=== PATIENT | female | born 1990 | race Caucasian/White ===

== ENCOUNTER → 2017-05-25 | Outpatient (REF) | payer BC ==
[2017-05-25 13:33] LABS: INR 0.97
[2017-05-25 13:34] LABS: FIBRINOGEN 310 MG/DL (221-452); PARTIAL THROMBOPLASTIN TIME 30.6 SECONDS (26.8-37.9)
[2017-05-25 13:54] LABS: HCG, SERUM QUANTITATIVE < 1.0 MIU/ML; URIC ACID 3.3 MG/DL (2.6-6.0)
[2017-05-25 14:16] LABS: FOLLICLE STIMULATING HORMONE 6.1 mIU/mL; LUTEINIZING HORMONE 8.4 mIU/mL
[2017-05-25 14:16] LABS: TESTOSTERONE 23 NG/DL (14-76)
[2017-05-28 00:07] LABS: 17 HYDROXY PROGESTERONE 44 ng/dL (.)
== END ==
LOC: M LAB REF 13:03
DX: N92.6 Irregular menstruation, unspecified (principal)
CPT/HCPCS: 83001

== ENCOUNTER → 2017-11-11 | Outpatient (REF) | payer BC ==
[2017-11-11 13:44] LABS: CONTROL LINE HCG INT CTR LINE PRESENT; HCG, SERUM QUALITATIVE NEGATIVE (NEGATIVE)
[2017-11-13 00:06] LABS: Lyme Disease IgG/IgM Antibodie <0.91 ISR (0.00-0.90); Lyme Disease IgM Ab Quantitati <0.80 index (0.00-0.79)
== END ==
LOC: M LAB REF 12:32
DX: R53.83 Other fatigue (principal); N91.2 Amenorrhea, unspecified
CPT/HCPCS: 84703

== ENCOUNTER → 2017-12-09 | Outpatient (REF) | payer BC ==
[2017-12-09 14:49] LABS: CONTROL LINE HCG INT CTR LINE PRESENT; HCG, SERUM QUALITATIVE NEGATIVE (NEGATIVE)
[2017-12-09 16:32] LABS: PROLACTIN 7.2 NG/ML
[2017-12-09 16:32] LABS: TESTOSTERONE 17 NG/DL (14-76)
[2017-12-09 16:44] LABS: FOLLICLE STIMULATING HORMONE 5.4 mIU/mL; LUTEINIZING HORMONE 4.2 mIU/mL
[2017-12-15 00:12] LABS: INSULIN LEVEL 10.8 uIU/mL (2.6-24.9)
[2017-12-15 00:12] LABS: 17 HYDROXY PROGESTERONE 16 ng/dL (.); DEHYDROEPIANDROSTERONE SULFATE 133.2 ug/dL (84.8-378.0)
== END ==
LOC: M LAB REF 14:16
DX: N91.2 Amenorrhea, unspecified (principal)
CPT/HCPCS: 83001

== ENCOUNTER → 2018-05-09 | Outpatient (REF) | payer BC ==
[2018-05-09 15:00] LABS: FOLLICLE STIMULATING HORMONE 2.8 mIU/mL; LUTEINIZING HORMONE 2.7 mIU/mL; PROLACTIN 8.9 NG/ML
[2018-05-12 00:07] LABS: TESTOSTERONE FREE (DIRECT) 1.8 pg/mL (0.0-4.2)
== END ==
LOC: M LAB REF 13:40
PROVIDERS: ATTEND Nurse Practitioner Adult Health
DX: N91.1 Secondary amenorrhea (principal)

== ENCOUNTER → 2018-10-13 | Outpatient (REF) | payer BC ==
[~2018-10-13] MED LIST: ACET-897 PO; AIMO70IN2; AIMO70IN2 SQ; CARI1TAB7; DULO1CAP5; DULO30CA9 PO; IBUP-1022; IBUP-1425 PO; LOW-1TAB2; LOW-1TAB2 PO; SOMA350T PO; TOPI100T9; TOPI50TA9 PO
== END ==
LOC: M LAB LCGH 11:52
PROVIDERS: ATTEND Obstetrics & Gynecology
DX: N91.2 Amenorrhea, unspecified (principal)

== ENCOUNTER → 2018-12-07 | Outpatient (REF) | payer BC | LOC: M LAB REF 16:19 | PROVIDERS: ATTEND Nurse Practitioner Adult Health | DX: R10.32 Left lower quadrant pain (principal) ==

== ENCOUNTER 2019-03-14 18:23 | Emergency (ER) | payer BC ==
[~2019-03-14] VITALS: Ht 152.4 cm; Wt 62.1 kg
[2019-03-14] MEDS ORDERED: AIMO70IN2 (18:32)
[2019-03-14] MEDS ORDERED: LOW-1TAB2 (18:32)
[2019-03-14] MEDS ORDERED: CARI1TAB7 (18:32)
[2019-03-14] MEDS ORDERED: TOPI100T9 (18:32)
[2019-03-14] MEDS ORDERED: DULO1CAP5 (18:32)
[2019-03-14] MEDS ORDERED: IBUP-1022 (18:32)
[2019-03-14] MEDS ORDERED: NS 1,000 ML IV SCH (18:48)
[2019-03-14 18:59] LABS: BASO % 0.3 % (0.0-1.0); EOS # 0.1 10^3/uL (0.0-0.5); EOS % 1.1 % (0.0-3.0); HEMATOCRIT 44.5 % (36.0-47.0); HEMOGLOBIN 14.2 g/dl (12.0-15.5); LYMPH # 2.3 10^3/uL (1.5-5.0); LYMPH % 24.8 % (24.0-44.0); MEAN CORPUSCULAR HEMOGLOBIN 30.9 pg (27.0-33.0); MEAN CORPUSCULAR HGB CONC 31.9 g/dl (32.0-36.5); MEAN CORPUSCULAR VOLUME 96.9 fl (80.0-96.0); MONO # 0.5 10^3/uL (0.0-0.8); MONO % 5.3 % (0.0-5.0); NEUTROPHILS # 6.3 10^3/uL (1.5-8.5); NEUTROPHILS % 68.3 % (36.0-66.0); PLATELET COUNT, AUTOMATED 254 10^3/uL (150-450); RED BLOOD COUNT 4.59 10^6/uL (4.00-5.40); WHITE BLOOD COUNT 9.2 10^3/uL (4.0-10.0)
[2019-03-14] MEDS ORDERED: MORPHINE 4 MG/ML 1ML VIAL/SYRINGE (J2270) IV ONE (19:00)
[2019-03-14] MEDS ORDERED: ONDANSETRON 4MG/2ML VIAL (J2405) IV ONE (19:00)
[2019-03-14 19:29] LABS: ALT/SGPT 12 U/L (12-78); BILIRUBIN,DIRECT < 0.1 MG/DL (0.0-0.2); BILIRUBIN,TOTAL 0.3 MG/DL (0.2-1.0); LIPASE 240 U/L (73-393); TOTAL PROTEIN 7.3 GM/DL (6.4-8.2)
[2019-03-14] MEDS ORDERED: POTASSIUM CHLORIDE 10 MEQ SR TABLET PO ONE (19:45)
[2019-03-14] MEDS ORDERED: ISOVUE-370 76% 100ML VIAL (Q9967) As Ordered ONE (19:49)
[2019-03-14] MEDS: GASTROGRAFIN SOLUTION 30ML PO SCH ×2 (20:11→20:26)
--- NOTE | 2019-03-14 22:31 | REPVR ---
PROCEDURE INFORMATION: Exam: CT Abdomen And Pelvis With Contrast Exam date and time: 03/14/2019 9:56 PM Age: 28 years old Clinical indication: Abdominal pain; Additional info: Rlq pain TECHNIQUE: Imaging protocol: Computed tomography of the abdomen and pelvis with intravenous contrast. Radiation optimization: All CT scans at this facility use at least one of these dose optimization techniques: automated exposure control; mA and/or kV adjustment per patient size (includes targeted exams where dose is matched to clinical indication); or iterative reconstruction. Contrast material: ISOVUE 370; Contrast volume: 100 ml; Contrast route: IV; COMPARISON: No relevant prior studies available. FINDINGS: Liver: 6 mm cyst in the right hepatic lobe. Subcentimeter lesion in the left hepatic lobe too small to be characterized. Gallbladder and bile ducts: Normal. No calcified stones. No ductal dilation. Pancreas: Normal. No ductal dilation. Spleen: Small splenule. Adrenals: Normal. No mass. Kidneys and ureters: Normal. No hydronephrosis. Stomach and bowel: Unremarkable. No obstruction. No mucosal thickening. Appendix: Appendix is unremarkable. Intraperitoneal space: Unremarkable. No free air. No significant fluid collection. Vasculature: Unremarkable. No abdominal aortic aneurysm. Lymph nodes: Unremarkable. No enlarged lymph nodes. Bladder: Unremarkable as visualized. Reproductive: Unremarkable as visualized. Bones/joints: Unremarkable. No acute fracture. Soft tissues: Unremarkable. IMPRESSION: No acute abdominal or pelvic abnormality. Electronically signed by: Franko Ferrell On 03/14/2019 22:30:22 PM
[2019-03-14] MEDS ORDERED: KETOROLAC 30 MG/ML VIAL (J1885) IV ONE (22:45)
--- NOTE | 2019-03-15 00:14 | REPVR ---
PROCEDURE INFORMATION: Exam: US Pelvis Complete, Transabdominal Exam date and time: 03/14/2019 11:26 PM Age: 28 years old Clinical indication: Pelvic pain; Additional info: Rlq pain R/O ovarian torsion TECHNIQUE: Imaging protocol: Real-time transabdominal pelvic ultrasound with image documentation. Complete exam. COMPARISON: CT ABD/PEL W/IV ORAL CONTRAS 03/14/2019 9:45 PM FINDINGS: Uterus/cervix: Small endometrial cyst measuring 3 mm. Endometrium is otherwise unremarkable. Uterus is unremarkable. No uterine masses. Right adnexa: 1.9 cm right ovarian simple cyst. No mass. Normal blood flow. Left adnexa: Small physiologic follicles. No mass. Normal blood flow without signs of torsion. Free fluid: Trace pelvic free fluid. Bladder: Normal. IMPRESSION: No evidence of ovarian torsion or other acute findings. Electronically signed by: Florian Delgado On 03/15/2019 00:14:10 AM
[2019-03-15] MEDS ORDERED: LOW-1TAB2 PO (00:39)
[2019-03-15] MEDS ORDERED: TOPI50TA9 PO (00:39)
[2019-03-15] MEDS ORDERED: AIMO70IN2 SQ (00:39)
[2019-03-15] MEDS ORDERED: SOMA350T PO (00:39)
[2019-03-15] MEDS ORDERED: DULO30CA9 PO (00:39)
[2019-03-15] MEDS ORDERED: ACET-897 PO (00:39)
[2019-03-15] MEDS ORDERED: IBUP-1425 PO (00:39)
[2019-03-15 00:45] VITALS: BP 98/56
== END 2019-03-15 00:48 | disposition home or self-care (01) ==
LOC: M ED 18:23
DX: R10.31 Right lower quadrant pain (principal); N92.6 Irregular menstruation, unspecified; K76.89 Other specified diseases of liver; Z79.3 Long term (current) use of hormonal contraceptives; Z79.899 Other long term (current) drug therapy; Z88.2 Allergy status to sulfonamides; Z88.5 Allergy status to narcotic agent
CPT/HCPCS: 36415; 74177; 76830; 76856; 80047; 80076; 81001; 83690; 84702; 85025; 87086; 93976; 96361; 96374; 96375; 99284; J1885; J2270; J2405; Q9963; Q9967

== ENCOUNTER → 2019-03-21 | Outpatient (REF) | payer BC | LOC: M LAB LCGH 10:33 | PROVIDERS: ATTEND Surgery | DX: K82.4 Cholesterolosis of gallbladder (principal) ==

== ENCOUNTER 2019-09-11 08:14 | Emergency (ER) | payer BC, OTHER ==
[~2019-09-11] VITALS: Ht 152.4 cm; Wt 63.6 kg
[2019-09-11] MEDS ORDERED: ISOVUE-370 76% 100ML VIAL As Ordered ONE (09:59)
[2019-09-11] MEDS ORDERED: KETO10TAB PO (10:49)
[2019-09-11 11:12] VITALS: BP 109/62
--- NOTE | 2019-09-11 12:01 | REP ---
REASON: Pleuritic chest pain. CONTRAST: 70 mL Isovue 370. There is excellent visualization of the pulmonary arterial vasculature. There are no focal filling defects present that would be considered consistent with acute pulmonary emboli. There are no pleural or pericardial effusions. There is no mediastinal or hilar adenopathy. The imaged upper abdomen and imaged osseous structures are within normal limits. Evaluation of the lung watt show no abnormal nodules, masses, or opacities. IMPRESSION: CT findings are within normal limits. Electronically Signed by Jay Chairez DO 09/11/2019 02:27 P
== END 2019-09-11 11:13 | disposition home or self-care (01) ==
LOC: M ED 08:14
DX: R07.89 Other chest pain (principal); Z79.3 Long term (current) use of hormonal contraceptives; Z79.899 Other long term (current) drug therapy; Z88.2 Allergy status to sulfonamides; Z88.5 Allergy status to narcotic agent
CPT/HCPCS: 71275; 80047; 84702; 99284; Q9967

== ENCOUNTER → 2019-09-12 | Outpatient (CLI) | payer BC, OTHER ==
[~2019-09-12] MED LIST changes: +KETO10TAB PO
== END ==
LOC: M LABSMTC 11:26
PROVIDERS: ATTEND Pediatrics
DX: Z11.59 Encounter for screening for other viral diseases (principal)
CPT/HCPCS: C9803; U0002

== ENCOUNTER → 2019-10-04 | Outpatient (CLI) | payer BC, OTHER ==
[2019-11-26 15:10] LABS: HEMATOCRIT 39.3 % (36.0-47.0); MEAN CORPUSCULAR HEMOGLOBIN 31.6 pg (27.0-33.0); MEAN CORPUSCULAR HGB CONC 33.1 g/dl (32.0-36.5); MEAN CORPUSCULAR VOLUME 95.6 fl (80.0-96.0); PLATELET COUNT, AUTOMATED 279 10^3/uL (150-450); RED BLOOD COUNT 4.11 10^6/uL (4.00-5.40); WHITE BLOOD COUNT 7.5 10^3/uL (4.0-10.0)
[2019-12-02 10:17] LABS: ALBUMIN 3.6 GM/DL (3.2-5.2); ALT/SGPT 44 U/L (12-78); BILIRUBIN,TOTAL 0.3 MG/DL (0.2-1.0); BLOOD UREA NITROGEN 11 MG/DL (7-18); CALCIUM LEVEL 8.8 MG/DL (8.5-10.1); CARBON DIOXIDE LEVEL 24 MEQ/L (21-32); CHLORIDE LEVEL 111 MEQ/L (98-107); CREATININE FOR GFR 0.85 MG/DL (0.55-1.30); GLOMERULAR FILTRATION RATE > 60.0 (>60); GLUCOSE, FASTING 93 MG/DL (70-100); HCG, SERUM QUANTITATIVE < 1.0 MIU/ML; POTASSIUM SERUM 3.7 MEQ/L (3.5-5.1); SODIUM LEVEL 141 MEQ/L (136-145)
== END ==
LOC: M LAB 16:05
PROVIDERS: ATTEND Obstetrics & Gynecology Reproductive Endocrinology
DX: Z53.9 Procedure and treatment not carried out, unspecified reason (principal)

== ENCOUNTER → 2019-10-07 | Outpatient (CLI) | payer BC, OTHER | LOC: M LABSMTC 09:30 | PROVIDERS: ATTEND Obstetrics & Gynecology Reproductive Endocrinology | DX: Z11.59 Encounter for screening for other viral diseases (principal); Z20.828 Contact with and (suspected) exposure to other viral communicable diseases | CPT/HCPCS: C9803; U0003 ==

== ENCOUNTER 2019-10-30 18:33 | Emergency (ER) | payer BC, OTHER ==
[~2019-10-30] VITALS: Ht 152.4 cm; Wt 62.1 kg
[2019-10-30 18:34] VITALS: BP 105/68
[2019-10-30] MEDS ORDERED: diphenhydrAMINE 50MG/ML VIAL (J1200) IV ONE (20:30)
[2019-10-30] MEDS ORDERED: NS 1,000 ML IV ONE (20:30)
[2019-10-30] MEDS ORDERED: METOCLOPRAMIDE INJ 10MG/2ML VIAL (J2765 PER 1) IV ONE (20:30)
[2019-10-30] MEDS ORDERED: KETOROLAC 30 MG/ML 1ML VIAL IV ONE (20:30)
== END 2019-10-30 23:11 | disposition home or self-care (01) ==
LOC: M ED 18:33
DX: G43.909 Migraine, unspecified, not intractable, without status migrainosus (principal); Z79.3 Long term (current) use of hormonal contraceptives; Z79.899 Other long term (current) drug therapy; Z88.2 Allergy status to sulfonamides; Z88.5 Allergy status to narcotic agent
CPT/HCPCS: 96361; 96374; 96375; 99283; J1200; J1885; J2765

== ENCOUNTER 2020-04-05 11:20 | Emergency (ER) | payer BC, OTHER ==
[~2020-04-05] VITALS: Ht 152.4 cm; Wt 71.4 kg
[2020-04-05] MEDS ORDERED: PHEN15CA (11:28)
--- OUTSIDE RECORDS SUMMARY | 2020-04-05 11:29 | CCD | Continuity of Care Document ---
Author Author Ketty ARREOLA [facility] Organization Unknown Address [address] [facility] [address] [place] [address] Phone [phone] Care Team Providers Care Consumer Experience Consultant Name Role Phone Nicolas Bobby MD AUTM [phone] Rebecca Hanks AUTM [phone] Problems Active Problems Provider Date Carcinoma in situ of uterine cervix Phyl JAEL Motta Onse t: 02/02/2017 Social History Type Date Description Comments Sex Unknown ETOH Use Drinks Alcoholic Beverages Occas ionally Tobacco Use Start: Unknown Patient has never smoked Allergies, Adverse Reactions, Alerts Active Allergies Reaction Severity Comments Date Sulfa Urticaria 12/28/2013 Tramadol itchy 12/28/2013 Enlon-Plus 12/18/2015 Medications Active Medications SIG Qnty Indications Ordering Provide r Date Phentermine HCL 15mg Capsules 1 by mouth every morning 1/2 hour before breakfast 30caps E66.3 Isiah Bates MD 03/25/2020 Aimovig 140mg/ml Solution Auto-Inj ect inject 1 milliliters monthly 1ml Isiah Bates MD 03/02/2019 Soma 350mg Tablets three times a day as needed 30tabs MINA Long 01/23/2019 Topamax 100mg Tablets take one tablet by mouth twice a day am and at bedtime 180tabs Isiah de leon MD 10/03/2018 Medications Administered in Office Medication SIG Qnty Indications Ordering Provider Date Immunization Adminstration,1 Vaccine/Tox oid Injection Isiah Bates MD 2019 Immunization Adminstration,1 Vaccine/Tox oid Injection MINA Long 019 Immunization Adminstration,1 Vaccine/Tox oid Injection Rebecca Hanks, ANP 018 Immunizations CPT Code Status Date Vaccine Lot # [id number] Given 12/18/2019 Influenza Vaccin e Quadrivalent Preser/Antibiotic Free Im Use [id number] Given 12/07/2018 Influenza Vaccin e Quadrivalent Preser/Antibiotic Free Im Use [id number] Given 12/27/2017 Influenza Virus Vaccine, Quadrivalent ([id number]), Derived From 9 Given 12/02/2016 Influenza Vaccin e Quadrivalent Preser/Antibiotic Free Im Use [id number] Given 12/18/2015 Fluvirin Virus Vaccine [id number] 01 Q2037 Given 12/26/2014 Fluvirin Virus Vaccine 12822 01 Q2037 Given 12/28/2013 Fluvirin Virus Vaccine [id number] 21 Vital Signs Date Vital Result Comment 03/25/2020 1:03pm Height 60 inches 5'0" Weight 152.00 lb BMI (Body Mass Index) 29.7 kg/m2 08/31/2019 10:25am BP Systolic 114 mmHg BP Diastolic 70 mmHg Heart Rate 70 /min Height 60 inches 5'0" Weight 140.00 lb O2 % BldC Oximetry 99 % RM Air BMI (Body Mass Index) 27.3 kg/m2 Results Test Acquired Date Facility Test Result H/L Range Note Coronavirus 2019 Nasopharygeal 10/07/2019 [facility] [address] [place], [place] [id number] [phone] Coronavirus 2019 Nasopharygeal SARS-CoV-2, RADHA <SEE N OTE> 1 Complete Blood Count 10/04/2019 [facility] enter [address] [place], [place] [id number] [phone] White Blood Count 7.5 10 Normal 4.0-10.0 Red Blood Count 4.11 10 Normal 4.00-5.40 Hemoglobin 13.0 g/dL Normal 12.0-15.5 Hematocrit 39.3 % Normal 36.0-47.0 Mean Corpuscular Volume 95.6 fl Normal 80.0-96.0 Mean Corpuscular Hemoglobin 31.6 pg Normal 27.0-33.0 Mean Corpuscular HGB Conc 33.1 g/dL Normal 32.0-36.5 Red Cell Distribution Width 11.8 % Normal 11.5-14.5 Platelet Count, Automated 279 10 Normal 150-450 Nucleated Red Blood Cell % 0.0 % Normal 0-0 Comprehensive Metabolic Profil 10/04/[address] [id number] [phone] Glucose, Fasting 93 mg/dL Normal 70-100 Blood Urea Nitrogen 11 mg/dL Normal 7-18 Creatinine For GFR 0.85 mg/dL Normal 0.55-1.30 Glomerular Filtration Rate > 60.0 Normal >60 2 Sodium Level 141 mEq/L Normal 136-145 Potassium Serum 3.7 mEq/L Normal 3.5-5.1 Chloride Level 111 mEq/L High 98-107 Carbon Dioxide Level 24 mEq/L Normal 21-32 Anion Gap 6 mEq/L Low 8-16 Calcium Level 8.8 mg/dL Normal 8.5-10.1 Ast/Sgot 25 U/L Normal 7-37 Alt/SGPT 44 U/L Normal 12-78 Alkaline Phosphatase 92 U/L Normal 45-117 Bilirubin,Total 0.3 mg/dL Normal 0.2-1.0 Total Protein 7.0 GM/DL Normal 6.4-8.2 Albumin 3.6 GM/DL Normal 3.2-5.2 Albumin/Globulin Ratio 1.1 Low 1.2-2.2 Laboratory test finding 10/04/[address] [id number] [phone] HCG, Serum Quantitative < 1.0 MIU/ML Normal 3 1 SARS-CoV-2, RADHA Not Detecte d Test was developed and its performance characteristics determined by [facility]. This test has not been FDA cleared or approved. This test has been authorized by FDA under an Emergency Use Authorization (EUA). This test is only authorized for the duration of time the declaration that circumstances exist justifying the authorization of the emergency use of in vitro diagnostic tests for detection of SARS-CoV-2 virus and/or diagnosis of COVID-19 infection under section 564(b)(1) of the Act, 21 U.S.C. 360bbb-3(b)(1), unless the authorization is terminated or revoked sooner. When diagnostic testing is negative, the possibility of a false negative result should be considered in the context of a patient's recent exposures and the presence of clinical signs and symptoms consistent with COVID-19. An individual without symptoms of COVID-19 and who is not shedding SARS-CoV-2 virus would expect to have a negative (not detected) result in this assay. [address] [address] Dir: Yajaira Moulton MD For inquiries, the physician may contact Branch: [phone] Lab: [phone] Testing performed at reference lab. Report copy to follow on a separate form. 11/15/19 REF LAB#:[id number] 2 Units are mL/min/1.73 m2 Chronic Kidney Disease Staging per NKF: Stage I & II GFR >=60 Normal to Mildly Decreased Stage III GFR 30-59 Moderately Decreased Stage IV GFR 15-29 Severely Decreased Stage V GFR <15 Very Little GFR Left ESRD GFR <15 on EXERCISE PHYSIOLOGY PROFESSOR 3 GESTATIONAL AGE APPROXIMATE HCG RANGE (MIU/ML) - 0.2-1 WEEK 5-50 1-2 WEEKS 50-500 2-3 WEEKS 100-5,000 3-4 WEEKS 500-10,000 4-5 WEEKS 1,000-50,000 5-6 WEEKS 10,000-100,000 6-8 WEEKS 15,000-200,000 2-3 MONTHS 10,000-100,00 0 NON FEMALES LESS THAN 3.0 Patient samples may contain human heterophilic antibodies that could react with immunoassays to give falsely elevated or depressed results. This assay has been designed to minimize interference from heterophilic antibodies. Elevated hCG levels have also been associated with trophoblastic disease and nontrophoblastic neoplasms. The possibility of having these diseases should be considered before a diagnosis of is made. This test is not intended for use as a surrogate marker for aiding in the diagnosis or monitoring the treatment of cancer patients. Siemens Laura methodology. Procedures Description No Information Available Medical Devices Description No Information Available Encounters Type Date Location Provider Dx Diagnosis Office Visit 03/25/2020 1:00p [facility] Mouna M arra, RETAIL STOCK CLERK G43.901 Migraine, unsp, not intractable, with st atus migrainosus F41.9 Anxiety disorder, unspecifie d N80.9 Endometriosis, unspecified Assessments Date Code Description Provider 03/25/2020 G43.901 Migraine, unspecified, not intra ctable, with status migraino Mouna Maxwell, RETAIL STOCK CLERK 03/25/2020 F41.9 Anxiety disorder, unspecified Ji pollo Maxwell, RETAIL STOCK CLERK 03/25/2020 N80.9 Endometriosis, unspecified Lamontlli miguel Maxwell, RETAIL STOCK CLERK 12/18/2019 Z23 Encounter for immunization Maite Bates MD 12/18/2019 Z23 Encounter for immunization Nurse Schedule Plan of Treatment Future Appointment(s):* 04/22/2020 1:00 pm - [facility] 03/25/2020 - Mouna JAEL Arreola* G43.901 Migraine, unspecified, not intractable, with status migraino* Comments:* Following with [facility]. She has been approved for Botox, she is currently still on Aimovig and Topamax. Check CBC, CMP when patient is able. * F41.9 Anxiety disorder, unspecified* Comments:* Feels stable without Duloxetine. * N80.9 Endometriosis, unspecified* Comments:* Following with [facility] [employer] and is no longer using OCPs. LMP 03/06/20 and patient reports that these are starting to regulate. * All * New Medication:* Phentermine HCL 15 mg - 1 by mouth every morning 1/2 hour before breakfast * Comments:* Flu and COVID vaccine x1 given. [facility] is done in [place]. Follow up in one year with repeat labs at that time.Encouraged balanced diet, 4-5 servings of fresh fruits and vegetables daily. Recommended at least 30 minutes of exercise daily and eight 8 oz. glasses of water daily.SBE monthly.RTC PRN for acute illness. COVID precautions are discussed and social distancing/mask use/ frequent hand washing and sanitizing are encouraged. Functional Status Description No Information Available Mental Status Description No Information Available Referrals Description No Information Available
--- OUTSIDE RECORDS SUMMARY | 2020-04-05 11:29 | CCD | Continuity of Care Document ---
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 Social History Type Date Description Comments Sex Unknown ETOH Use Occasionally consumes alcohol Tobacco Use Start: Unknown Patient has never smoked Tobacco Use Start: Unknown The Patient Has Never Vaped Smoking Status Reviewed: 03/26/20 The Patient Has Never Vaped Allergies, Adverse Reactions, Alerts Active Allergies Reaction Severity Comments Date Sulfa 03/17/2008 Tramadol Urticaria 01/01/2011 Inactive Allergies NKDA 03/17/2008 Medications Active Medications SIG Qnty Indications Ordering Provide r Date Ibuprofen 800mg Tablets take one tablet every 6-8hrs with food 50tabs M94.0 Bryan Leyva JR. 03/26/2020 Cyclobenzaprine HCL 10mg Tablets take one at bedtime 14tabs M94.0 Isiah Bates JR., M.D. Topamax bd Unknown Aimovig 140mg/ml Solution Auto-Inj ect Once a month Unknown Phentermine HCL 30mg Capsules 1 tab by mouth every day 1-2 hours after breakfast Unknow n Tylenol 325mg Tablets Last dose at 3am Unknown Immunizations Description No Information Available Vital Signs Date Vital Result Comment 03/26/2020 8:51am BP Systolic 107 mmHg BP Diastolic 76 mmHg Heart Rate 93 /min Respiratory Rate 16 /min O2 % BldC Oximetry 98 % Body Temperature 98.9 F Weight 150.00 lb Height 60 inches 5'0" BMI (Body Mass Index) 29.3 kg/m2 Pain Level 5 02/02/2020 12:19pm BP Systolic 120 mmHg BP Diastolic 80 mmHg Heart Rate 75 /min Respiratory Rate 12 /min O2 % BldC Oximetry 98 % Body Temperature 98.2 F Weight 137.00 lb Height 60 inches 5'0" BMI (Body Mass Index) 26.8 kg/m2 Pain Level 4 Results Description No Information Available Procedures Description No Information Available Medical Devices Description No Information Available Encounters Type Date Location Provider Dx Diagnosis Office Visit 03/26/2020 8:30a Main Office AYLEEN Mar M94 .0 Chondrocostal junction syndrome [Tietze] S16.1xxA Strain of muscle, fascia and tendon at neck level, init Z20.828 Contact w and exposure to ot h viral communicable diseases Office Visit 02/02/2020 12:15p Main Office AYLEEN Mar J06 .9 Acute upper respiratory infection, unspecified Z20.828 Contact w and exposure to ot h viral communicable diseases Assessments Date Code Description Provider 03/26/2020 M94.0 Chondrocostal junction syndrome [Tietze] AYLEEN Mar 03/26/2020 S16.1xxA Strain of muscle, fa scia and tendon at neck level, initial encounter AYLEEN Mar 03/26/2020 Z20.828 Contact with and (lacy spected) exposure to other viral communicable diseases AYLEEN Mar 02/02/2020 J06.9 Acute upper respiratory infectio n, unspecified AYLEEN Mar 02/02/2020 Z20.828 Contact with and (lacy spected) exposure to other viral communicable diseases AYLEEN Mar Plan of Treatment No Information Available Functional Status Description No Information Available Mental Status Description No Information Available Referrals Description No Information Available
--- OUTSIDE RECORDS SUMMARY | 2020-04-05 11:29 | CCD | Continuity of Care Document ---
Author Author Ketty MARTÍNEZ [facility] Organization Unknown Address [address] [place] [address] [place] [address] Phone [phone] Care Team Providers Care Special Warfare Boat Operator Name Role Phone Rebecca Hanks ANP AUTM [phone] Preet [employer] AUTM [phone] Problems Active Problems Provider Date Tietze's disease [...]
--- OUTSIDE RECORDS SUMMARY | 2020-04-05 11:30 | CCD | Continuity of Care Document ---
Author Author [facility] Organization [facility] Address [address] [place] [address] Phone Support Name Relationship Address Phone Amarjit Hanks PRS [facility] [place] [address] Po Pozo PRS [address] [place] [address] Gunner Woods PRS [address] [place] [address] Reynold Jeffrey PRS [address] [place] [address] Hardy Rosario PRS [address] [place] [address] Golden Arboleda PRS [address] [place] [address] Stone Agarwal PRS [address] [place] [address] Mikayla Garner PRS Unknown Unavailable Violet Farris PRS [address] [place] [address] Mariza Schrader II [place] [address] John Abad PRS [address] [place] [address] Allergies, Adverse Reactions, Alerts Allergen Type Severity Reaction Last Updated Verified Status Sulfa (Sulfonamide Antibiotics) Allergy Mild Hives December 18, 2019 9:05am Yes Active tramadol Allergy Mild itching December 18, 2019 9:05am Yes Active Medications Medication Status Dose Units Route Directions Qty Days Start Date End Date Instructions Duloxetine (Cymbalta) 20 mg capsule,delayed release(DR /EC) Discontinued 20 MG PO daily September 28, 2018 12:31pm October 12, 2018 8:49am Duloxetine Discontinued 30 MG PO daily October 12, 2018 8:48am August 31, 2019 12:49pm Duloxetine Active 60 MG PO daily August 31, 2019 12:47pm Topiramate (Topamax) 100 mg tablet Active 300 MG PO daily August 31, 2019 12:49 pm Drospirenone-Ethinyl Estradiol Discontinue d 1 TAB PO daily August 31, 2019 1:27 pm December 18, 2019 8:57am Ethynodiol Diac-Eth Estradiol Discontinued 1 TAB PO 2 Times Per Day December 18, 2019 8:57am January 18, 2020 3:28pm TAKE 1 TA B BY MOUTH DAILY ACTIVE TABS ONLY DIRECTED Ibuprofen Discontinued 6 00 MG PO Every 6 hours May 26, 2018 10:06am March 15, 2019 3:47pm Norgestrel-Ethinyl Estradiol (Low-Ogestr el (28)) 0.3-30 mg-mcg tablet Discontinued 1 TAB PO Once Per Day March 15, 2019 5:27pm August 31, 2019 12:47pm Ondansetron Hcl Discontinued 4 MG PO Every 6 hours March 17, 2019 1:08pm March 20, 2019 11:57am Acetaminophen (Tylenol) 325 mg Tablet Active 650 MG PO NEEDED March 20, 2019 1 1:57am Ibuprofen (Motrin Ib) 200 mg Capsule Discontinued 400 MG PO NEEDED March 20, 2019 11:57am August 31, 2019 12:47pm Oxycodone-Acetaminophen (Endocet) 5-325 mg tablet Discontinued 1 TAB PO Every 4 Hours March 21, 2019 10:15am August 31, 2019 12:47pm Topiramate (Topamax) 50 MG tablet Di scontinued 150 MG PO Once Per Day April 06, 2018 2:15pm October 12, 2018 8:49am Erenumab-Aooe (Aimovig Autoinjector) 70 MG/1 ML AUTO.I NJCT Discontinued 70 MG SQ Q30D 1 April 06, 2018 2:15pm March 15, 2019 3:47pm Topiramate (Topamax) 50 mg tablet Di scontinued 200 MG PO Once Per Day October 12, 2018 8: 44am March 15, 2019 3:47pm Metronidazole Discontinued 500 MG PO Q12H October 18, 2018 1:28pm March 15, 2019 3:46pm Ibuprofen Discontinued 6 00 MG PO Q6H October 18, 2018 1:29pm March 15, 2019 5:29pm Erenumab-Aooe (Aimovig Autoinjector) 70 MG/1 ML AUTO.I NJCT Active 140 MG SQ Q30D 1 J anuary 2019 3:46pm Problems Active Problems Medical Problem Onset Date Status Contraception management Active Vaginal bleeding Activ e Hypomenorrhea/oligomenorrhea Active Abnormal Pap smear of cervix Active Dyskinesia of gallbladder Active Inactive/Resolved Problems Medical Problem Onset Date Status Menstrual migraine Res olved Endometriosis determined by laparoscopy Resolved Procedures Procedure Date Performed Status US Abd single organ/quadrant March 15, 2019 7:01pm completed Relevant Diagnostic Tests and/or Laboratory Data Laboratory Results Test Date/Time Result Interpretation Reference Range Result Comment Performing Site White Blood Count March 17, 2019 12:23pm 6.9 10e3/uL 4.45-10.71 [facility], [address] [place] [address] 65514 White Blood Count March 15, 2019 6:44p m 7.2 10e3/uL 4.45-10.71 [facility], [address] [place] [address] 81484 Red Blood Count March 17, 2019 12:23pm 4.34 10e6/uL 4.20-5.40 [facility], [address] [place] [address] 34138 Red Blood Count March 15, 2019 6:44pm 4.26 10e6/uL 4.20-5.40 [facility], [address] [place] [address] 36174 Hemoglobin March 17, 2019 12:23pm 13.6 g/dL 10.7-15.4 [facility], [address] [place] [address] 14854 Hemoglobin March 15, 2019 6:44pm 13.4 g/dL 10.7-15.4 [facility], [address] [place] [address] 55672 Hematocrit March 17, 2019 12:23pm 41.6 % 37-47 [facility], [address] [place] [address] 13210 Hematocrit March 15, 2019 6:44pm 41.3 % 37-47 [facility], [address] [place] [address] 08223 Mean Corpuscular Volume March 12:23pm 95.9 fl 80-96 [facility], [address] [place] [address] 50298 Mean Corpuscular Volume March 6:44pm 96.9 fl 80-96 [facility], [address] [place] [address] 70988 Mean Corpuscular Hemoglobin March 17, 2019 12:23pm 31.3 pg 27-31 [facility], [address] [place] [address] 08810 Mean Corpuscular Hemoglobin March 15, 2019 6:44pm 31.5 pg 27-31 [facility], [address] [place] [address] 67255 Mean Corpuscular Hemoglobin Concent March 17, 2019 12:23pm 32.7 g/dl 33-37 [facility], [address] [place] [address] 68644 Mean Corpuscular Hemoglobin Concent March 15, 2019 6:44pm 32.4 g/dl [address] [facility], [address] [place] [address] 77456 Red Cell Distribution Width March 17, 2019 12:23pm 12 % 11-15 [facility], [address] [place] [address] 77043 Red Cell Distribution Width March 15, 2019 6:44pm 12 % 11-15 [facility], [address] [place] [address] 94782 Platelet Count March 17, 2019 12:23pm 224 10e3/ul 130-472 [facility], [address] [place] [address] 46065 Platelet Count March 15, 2019 6:44pm 236 10e3/ul 130-472 [facility], [address] [place] [address] 56695 Mean Platelet Volume March 17, 020 12:23pm 9.1 fl 9.1-13.1 [facility], [address] [place] [address] 42787 Mean Platelet Volume March 15, 2 020 6:44pm 9.3 fl 9.1-13.1 [facility], [address] [place] [address] 13272 Neutrophils (%) (Auto) March 17, 2019 12:23pm 62.8 % 41-77 [facility], [address] [place] [address] 34374 Neutrophils (%) (Auto) March 15, 2019 6:44pm 78.5 % 41-77 [facility], [address] [place] [address] 58836 Absolute Neutrophil March 17 12:23pm 4.3 # 1.7-7.6 [facility], [address] [place] [address] 23980 Absolute Neutrophil March 15 6:44pm 5.7 # 1.7-7.6 [facility], [address] [place] [address] 27818 Lymphocytes (%) (Auto) March 17, 2019 12:23pm 26.2 % 14-46 [facility], [address] [place] [address] Lymphocytes (%) (Auto) March 15, 2019 6:44pm 12.6 % 14-46 [facility], [address] [place] [address] 24096 Lymphocytes # (Auto) March 17 12:23pm 1.8 # 0.6-4.6 [facility], [address] [place] [address] 90158 Lymphocytes # (Auto) March 15 020 6:44pm 0.9 # 0.6-4.6 [facility], [address] [place] [address] 47458 Monocytes (%) (Auto) March 17 020 12:23pm 9.3 % 4-12 [facility], [address] [place] [address] Monocytes (%) (Auto) March 15 6:44pm 7.6 % 4-12 [facility], [address] [place] [address] 20766 Monocytes # March 17, 2019 12:23pm 0.6 # 0.2-1.2 [facility], [address] [place] [address] 93128 Monocytes # March 15, 2019 6:44pm 0.6 # 0.2-1.2 [facility], [address] [place] [address] 64749 Eosinophils (%) (Auto) March 17, 2019 12:23pm 1.3 % 0-7 [facility], [address] [place] [address] 04753 Eosinophils (%) (Auto) March 15, 2019 6:44pm 0.6 % 0-7 [facility], [address] [place] [address] 03894 Absolute Eosinophils (CBC) March 012019 12:23pm 0.1 # 0.0-0.5 [facility], [address] [place] [address] 35404 Absolute Eosinophils (CBC) March 012019 6:44pm 0.0 # 0.0-0.5 [facility], [address] [place] [address] 35081 Basophils (%) (Auto) March 17 12:23pm 0.3 % 0.4-1.3 [facility], [address] [place] [address] 78680 Basophils (%) (Auto) March 15 020 6:44pm 0.4 % 0.4-1.3 [facility], [address] [place] [address] Absolute Basophils (CBC) March 12:23pm 0.0 # 0.0-0.2 [facility], [address] [place] [address] Absolute Basophils (CBC) March 6:44pm 0.0 # 0.0-0.2 [facility], [address] [place] [address] 20954 Immature Granulocyte % (Auto) 2019 12:23pm 0.1 % 0-2 [facility], [address] [place] [address] Immature Granulocyte % (Auto) 2019 6:44pm 0.3 % 0-2 [facility], [address] [place] [address] 52785 Absolute Immature Granulocyte (auto March 17, 2019 12:23pm 0.0 # 0-0.1 [facility], [address] [place] [address] Absolute Immature Granulocyte (auto March 15, 2019 6:44pm 0.0 # 0-0.1 [facility], [address] [place] [address] 23240 Add Manual Differential March 12:23pm No [facility], [address] [place] [address] 00612 Add Manual Differential March 6:44pm No [facility], [address] [place] [address] 70218 Urine Color August 31, 2019 12:40pm Yellow [facility], [address] [place] [address] Urine Color March 15, 2019 6:35pm Yellow [facility], [address] [place] [address] 97773 Urine Appearance August 31, 2019 12:40pm Clear [facility], [address] [place] [address] Urine Appearance March 15, 2019 6:35pm Clear [facility], [address] [place] [address] 64283 Urine pH August 31, 2019 12:40pm 6.5 [facility], [address] [place] [address] Urine pH March 15, 2019 6:35pm 7.0 [facility], [address] [place] [address] Urine Specific [place] August 30 0 12:40pm 1.004 [facility], [address] [place] [address] Urine Specific [place] March 15, 2019 6:35pm 1.016 [facility], [address] [place] [address] 17299 Urine Leukocyte Esterase August 30 12:40pm Negative NEGATIVE [facility], [address] [place] [address] Urine Leukocyte Esterase March 6:35pm Negative NEGATIVE [facility], [address] [place] [address] 45094 Urine Nitrate August 31, 2019 12:40pm Negative NEGATIVE [facility], [address] [place] [address] 64926 Urine Nitrate March 15, 2019 6:35pm Negative NEGATIVE [facility], [address] [place] [address] 62838 Urine Protein August 31, 2019 12:40pm Negative NEGATIVE [facility], [address] [place] [address] 94728 Urine Protein March 15, 2019 6:35pm Negative NEGATIVE [facility], [address] [place] [address] 51016 Urine Glucose August 31, 2019 12:40pm Negative NEGATIVE [facility], [address] [place] [address] 78839 Urine Glucose March 15, 2019 6:35pm Negative NEGATIVE [facility], [address] [place] [address] 20282 Urine Ketones August 31, 2019 12:40pm Negative NEGATIVE [facility], [address] [place] [address] 40625 Urine Ketones March 15, 2019 6:35pm Negative NEGATIVE [facility], [address] [place] [address] 27145 Urine Urobilinogen August 31, 2019 12:40pm 0.2 eu/dl [facility], [address] [place] [address] Urine Urobilinogen March 15 0 6:35pm 1 eu/dl [facility], [address] [place] [address] 72009 Urine Bilirubin August 31, 2019 12:40pm Negative NEGATIVE [facility], [address] [place] [address] 66444 Urine Bilirubin March 15, 2019 6:35pm Negative NEGATIVE [facility], [address] [place] [address] 24923 Urine Blood August 31, 2019 12:40pm Negative NEGATIVE [facility], [address] [place] [address] 70683 Urine Blood March 15, 2019 6:35pm Negative NEGATIVE [facility], [address] [place] [address] 32753 Add Urine Microanalysis August 30 12:40pm No [facility], [address] [place] [address] 33691 Add Urine Microanalysis March 6:35pm No [facility], [address] [place] [address] 06697 Blood Urea Nitrogen March 17 12:23pm 10 mg/dL 11-21 [facility], [address] [place] [address] 00708 Blood Urea Nitrogen March 15 6:44pm 11 mg/dL 11-21 [facility], [address] [place] [address] 50188 Sodium Level March 17, 2019 12:23pm 141 mmol/L 132-146 [facility], [address] [place] [address] 02783 Sodium Level March 15, 2019 6:44pm 142 mmol/L 132-146 [facility], [address] [place] [address] 81748 Potassium Level March 17, 2019 12:23pm 3.9 mmol/L 3.5-5.5 [facility], [address] [place] [address] 37579 Potassium Level March 15, 2019 6:44pm 3.5 mmol/L 3.5-5.5 [facility], [address] [place] [address] 45555 Chloride Level March 17, 2019 12:23pm 112 mmol/l 99-109 [facility], [address] [place] [address] 49067 Chloride Level March 15, 2019 6:44pm 112 mmol/l 99-109 [facility], [address] [place] [address] 16557 Carbon Dioxide Level March 17 12:23pm 23 mmol/l 20- [facility], [address] [place] [address] 92858 Carbon Dioxide Level March 15 6:44pm 23 mmol/l 20-31 [facility], [address] [place] [address] 58025 Anion Gap March 17, 2019 12:23pm 10 mmol/l 8-16 [facility], [address] [place] [address] Anion Gap March 15, 2019 6:44pm 11 mmol/l 8-16 [facility], [address] [place] [address] Glucose Level March 17, 2019 12:23pm 96 mg/dL 74-106 [facility], [address] [place] [address] Glucose Level March 15, 2019 6:44pm 93 mg/dL 74-106 [facility], [address] [place] [address] 03637 Creatinine March 17, 2019 12:23pm 0.8 mg/dL 0.5-1.1 [facility], [address] [place] [address] 90507 Creatinine March 15, 2019 6:44pm 0.8 mg/dL 0.5-1.1 [facility], [address] [place] [address] 87191 Glomerular Filtration Rate Calc Vineet astrid 2019 12:23pm Greater than 60 ml/min ABOVE 60 [facility], [address] [place] [address] 73826 Glomerular Filtration Rate Calc Vineet astrid 2019 6:44pm Greater than 60 ml/min ABOVE 60 [facility], [address] [place] [address] 93599 Alanine Aminotransferase (ALT/SGPT) March 17, 2019 12:23pm 21 U/L 10-49 [facility], [address] [place] [address] 11999 Alanine Aminotransferase (ALT/SGPT) March 15, 2019 6:44pm 13 U/L 10-49 [facility], [address] [place] [address] 09429 Aspartate Amino Transf (AST/SGOT) Howard blandon 2019 12:23pm 21 U/L 0-33 [facility], [address] [place] [address] 06656 Aspartate Amino Transf (AST/SGOT) Howard blandon 2019 6:44pm 14 U/L 0-33 [facility], [address] [place] [address] 09711 Alkaline Phosphatase Gabriela 17th, 2 020 12:23pm 94 U/L 45-129 [facility], [address] [place] [address] 50561 Alkaline Phosphatase March 15 6:44pm 100 U/L 45-129 [facility], [address] [place] [address] 94874 Amylase Level March 17, 2019 12:23pm 52 U/L 30-118 [facility], [address] [place] [address] 36073 Amylase Level March 15, 2019 6:44pm 53 U/L 30-118 [facility], [address] [place] [address] 68356 Lipase March 17, 2019 12:23pm 126 U/L 73-393 [facility], [address] [place] [address] 40313 Lipase March 15, 2019 6:44pm 130 U/L 73-393 [facility], [address] [place] [address] 69500 Calcium Level March 17, 2019 12:23pm 8.8 mg/dL 8.5-10.1 [facility], [address] [place] [address] 22878 Calcium Level March 15, 2019 6:44pm 8.7 mg/dL 8.5-10.1 [facility], [address] [place] [address] 46101 Total Bilirubin March 17, 2019 12:23pm 0.3 mg/dL 0.3-1.2 [facility], [address] [place] [address] 20094 Total Bilirubin March 15, 2019 6:44pm 0.3 mg/dL 0.3-1.2 [facility], [address] [place] [address] 19078 Albumin March 17, 2019 12:23pm 3.8 g/dL 3.2-4.8 [facility], [address] [place] [address] 60580 Albumin March 15, 2019 6:44pm 3.9 g/dL 3.2-4.8 [facility], [address] [place] [address] 18775 Serum Total Protein March 17 12:23pm 7.6 g/dL 5.7-8.2 [facility], [address] [place] [address] 70971 Serum Total Protein March 15 6:44pm 7.6 g/dL 5.7-8.2 [facility], [address] [place] [address] 50955 Troponin I March 15, 2019 6:44pm Less than 0.010 ng/mL 0.00-0.09 Less than 0.09 NG/ML Negative0.10 - 0.77 NG/ML High Risk0.78 NG/ML or Greater Positive The WHO defined the cutoff (definition for diagnosis of HI)for this method as 0.78 ng/ml. [facility], [address] [place] [address] 48651 Thin Prep Pap w Human Papilloma Vir August 31, 2019 1:00pm See scanned report [facility], [address] [facility] [address] Trichomonas DNA Probe August 31, 2019 1:00p m Negative Negative Performed at: - [facility] [address] [id number] Director: Yajaira Moulton MD, Phone: [phone] [facility] , [address] [facility] [address] Gardnerella DNA Probe August 31, 2019 1:00p m Negative Negative [facility] , [address] [place] [address] Alida species DNA Probe August 31, 2019 1:00pm Negative Negative [facility] , [address] [facility] [address] Chlamydia trachomatis (RADHA) (LAB) 2019 1:00pm Negative Negative [facility] , [address] [facility] [address] Neisseria gonorrhoeae DNA (RADHA) August 31, 2019 1:00pm Negative Negative Performed at: [facility] [address] [place], [place] [id number] Director: Yajaira Moulton MD, Phone: [phone] [facility] , [address] [facility] [address] Diagnostic Imaging Reports Report Dictated Date/Time Dictated By Status Radiology Report March 15, 2019 4:37pm Sigrid Shaw MD completed [id number] [place], [place] [id number] [phone] NAME SEX PT STATUS ACCOUNT NUMBER PETROS HERRING [facility] [id number] ORDERING PHYSICIAN LOCATION MEDICAL RECORD NO. Reynold ABBASI [facility] [id number] ATTENDING PHYSICIAN DATE OF DATE OF EXAM/TIME Rebecca Hanks RNAlvina 1990 03/[birth year]/191900 TYPE / EXAM US Abd single organ/quadrant REASON FOR EXAM RUQ pain Clinical History/Indication for Exam: RUQ pain Study: Ultrasound abdomen limited Indication: Right upper quadrant pain Technique: Limited grayscale and color Doppler imaging of the abdomen was performed Findings: The visualized liver parenchyma is normal The right kidney measures 84 mm There is no hydronephrosis The gallbladder is normal The common duct measures 4.1 Impression: No acute findings REPORT SIGNATURE ON FILE 03/15/2019 (16:37 Isabela Time ) Signed by: Sigrid Shaw M.D. Reported By Sigrid Shaw MD on 03/15/191636 Signed By Sigrid Shaw MD on 03/15/191636 Date Time CC: Sigrid Shaw MD; Rebecca ENRIQUEZ [place] Techn: TABSA Trans Dt/Tm: Trans by: DT Prt Dt/Tm: [id number]: Total DLP = 0.00 mGy-cm 2275-7114: Total Radiation Dose = 0.0000 mSv Lifetime Dose: 0 mSv Radiology Report March 17, 2019 12:23p m Marquis Fabian MD completed [id number] [place] [address] [phone] NAME SEX PT STATUS ACCOUNT NUMBER PETROS HERRING PRE REF [id number] ORDERING PHYSICIAN LOCATION MEDICAL RECORD NO. Reynold Jeffrey [place] [id number] ATTENDING PHYSICIAN DATE OF DATE OF EXAM/TIME Rebecca Hanks RNC 1990 03/17/19 09 TYPE / EXAM NM HIDA Scan W/Ejection Fract REASON FOR EXAM RIGHT ABDOMINAL PAIN, DIARRHEA, NEG GB US COMPARISON: None TECHNIQUE: 5.33mCi IV technetium 99m Choletec. 1.3mcg IV Kinevac FINDINGS: There is activity in the liver, common bile duct, gallbladder, and small bowel. The gallbladder ejection fraction is 20%, delayed IMPRESSION: Gallbladder ejection fraction of 20%, delayed. Findings consistent with gall bladder dyskinesia. Reported By Marquis Fabian MD on 03/17/19 1223 Signed By Marquis Fabian MD on 03/17/19 1224 Date Time CC: Marquis Fabian MD; Stone Agarwal MD; Rebecca Ocasio RNC ANP Demario Techn: GRAMR Trans Dt/Tm: Trans by: DT Prt Dt/Tm: : Total DLP = 0.00 mGy-cm : Total Radiation Dose = 0.0000 mSv Lifetime Dose: 0 mSv Health Concerns Health Concerns may be documented in an alternate section. Advance Directives Advance Directive Response Recorded Date/Time Advanced Directive No [facility] 2019 11:55am Does Patient have a DNR? No August 31, 2019 4:31pm Healthcare Proxy No August 31, 2019 4:31pm Living Will No August 31, 2019 4:31pm Chief Complaint and Reason for Visit Chief Complaint HEADACHE,FACIAL NUMB NESS Pelvic pain ADBOMINAL PAIN SIDE PAIN RUQ PAIN Gallbladder problems Hospital Discharge Follow-up Amb Documentation DIRECTOR OF NURSES REGISTRY annual exam Z01.419, Z12.4 Medication check DIRECTOR OF NURSES REGISTRY Medication check Reason for Visit Abnormal Pap smear of cervix Contraception management Hypomenorrhea/oligomenorrhea Contraception management Hypomenorrhea/oligomenorrhea Encounters Encounter Location(s) Ar rival/Admit Date Discharge/Depart Date Provider(s) Departed Emergency -Emergency Room ER January 17, 2019 5:56pm January 17, 2019 10:14pm null Departed Physician/Provider Office Visit -[facility] March 15, 2019 3:31pm March 15, 2019 4:29pm Gunner Woods DO Departed Emergency -Emergency Room ER March 15, 2019 4:30pm March 15, 2019 11:07pm null Departed Emergency -Emergency Room ER March 17, 2019 12:05pm March 17, 2019 1:43pm null Registered Referred -Nuclear Medicine March 17, 2019 1:22pm AYLEEN Gautam Registered Outpatient -[facility] March 20, 2019 3:12pm March [id number] 4:00pm Golden Arboleda MD Departed Physician/Provider Office Visit -[facility] March 29, 2019 11:49am March 29, 2019 12:38pm Stone Agarwal MD Registered Outpatient -[facility] March 31, 2019 1:58pm Mikayla Pascual Departed Physician/Provider Office Visit -[facility] August 31, 2019 12:28pm August 30 0 1:33pm Violet Farris MD Registered Referred -Lab Drop Off August 31, 2019 3:46pm Violet Farris MD Departed Physician/Provider Office Visit -[facility] December 18, 2019 8:04am December 18, 2019 9:01am Zachery Schrader II, MD Departed Physician/Provider Office Visit -[facility] January 18, 2020 2:40pm January 18, 2020 4:23pm Matthew Abad MD Recent Diagnosis Onset Date Abnormal Pap smear of cervix Contraception management Hypomenorrhea/oligomenorrhea Contraception management Hypomenorrhea/oligomenorrhea Assessments Diagnosis Onset Date Res olution Status Abnormal Pap smear of cervix acute Contraception management acute Hypomenorrhea/oligomenorrhea acute Contraception management acute Hypomenorrhea/oligomenorrhea acute Family History Relationship Condition A ge at Onset Recorded Date/Time Not Specified Hyperlipidemia Unknown Not Specified Hypertension Unknown Asthma Unknown Functional Status No Functional Status information available Goals Goals may be documented in an alternate section. Immunizations No Immunization Information Available Mental Status No Mental Status Information Available Medical Equipment No Medical Equipment Information available Insurance Providers Guarantor Petros Herring Address [address] [place] [address] Contact Info. Home Phone: Payer Policy Id Coverage Id Subscriber's Name Subscriber Id Effective Date Expiration Date BC/BS [facility] [id number] Petros Herring [id number] BC/BS [facility] [id number] Petros Herring [id number] [facility] [id number] Petros Herring [id number] Self Pay Self N/A Plan of Treatment 1. DIRECTOR OF NURSES REGISTRY evaluation: Irregular uterine bleeding, minimal flow, abnormal Pap and contraception. 2. Labs: Pap/HPV, GC/chlamydia, PCR swab vagina, UA/C&S. 1. Status post LEEP which revealed stage I cervical CA on 01/20/2017. Has not had a Pap since then. 2. Patient states she has had a long period of amenorrhea and several attempts to induce bleeding with her DIRECTOR OF NURSES REGISTRY, in that process the Pap has not been done. 3. Labs: Pap/HPV. 1. Contraception: Patient wants to try a form of contraception, which may lead to her having normal menses. 2. Patient asked to try a different form of control pill: Amelie, for 3 m onths, if it helps can continue with it. 3. Patient is scheduled for a laparoscopy by the [facility] in September 2019. 1. Amenorrhea, hypomenorrhea, oligomenorrhea: Patient states to date, her DIRECTOR OF NURSES REGISTRY h as not been able to explain her situation. 2. Advised that, may be [facility] may be able to definitively diagnose her problem af ter the laparoscopy in September 2019. Future Tests Future scheduled test information is unavailable Pending Tests Pending diagnostic test information is unavailable Future Visits Future appointment information is unavailable Referrals to Other Providers Reason for Referral Referral Start Date Provider Provider Conta ct Information Provider Address Golden Arboleda MD Email: [email or web address] Phone: [phone] [address] Golden Arboleda MD Email: [email or web address] Phone: [phone] [phone] Rebecca Hanks [employer] Work Phone: [facility] [phone] [phone] Future Procedures Future procedure information is unavailable Future Medications Future medication information is unavailable Patient Instructions Migraine Headache (ED) Acute Headache (ED) Biliary Colic (ED) Colecistectom a laparosc pica (DC) Social History Smoking Status Status Date of Observation Never smoker March 20, 2019 5:29 pm Observation Status Date of Observation Not March 17, 2019 Observation Status Observation Response Abilio e of Response Smoking Status Never smoker March 20, 2019 5:29pm Alcohol Use No March 022019 11:53am Substance Use No March 20, 2019 11:53am Assigned Sex Female Vital Signs Vital Reading Result Ref erence Range Collection Date/Time Height 60 [in_i] January 17, 2019 6:46pm Weight 134.00 [lb_av] January 17, 2019 6:46pm Body Temperature 97.9 [degF] 97.6-99.5 January 17, 2019 6:46pm Heart Rate 77 /min 60-100 January 17, 2019 10:00pm Respiratory rate 16 /min 12-24 January 17, 2019 10:00pm Oxygen saturation by Pulse oximetry 98 % 95- 100 January 17, 2019 10:00pm BP Systolic 103 mm[Hg] January 17, 2019 10:00pm BP Diastolic 65 mm[Hg] January 17, 2019 10:00pm Height 60 [in_i] March 15, 2019 3:40pm Weight 133.37 [lb_av] March 15, 2019 3:40pm Body Temperature 100.2 [degF] 97.6-99.5 March 15, 2019 3:40pm Heart Rate 113 /min 60-1 March 15, 2019 3:40pm Respiratory rate 18 /min -March 15, 2019 3:40pm Oxygen saturation by Pulse oximetry 98 % 95- 100 March 15, 2019 3:40pm BP Systolic 122 mm[Hg] March 15, 2019 3:40pm BP Diastolic 84 mm[Hg] March 15, 2019 3:40pm BMI (Body Mass Index) 26.0 kg/m2 March 15, 2019 3:40pm Height 60 [in_i] March 15, 2019 5:25pm Weight 133.00 [lb_av] March 15, 2019 5:25pm Body Temperature 98.2 [degF] 97.6-99.5 March 15, 2019 11:04pm Heart Rate 76 /min 60-100 March 15, 2019 11:04pm Respiratory rate 14 /min 12-March 15, 2019 11:04pm Oxygen saturation by Pulse oximetry 99 % 95- 100 March 15, 2019 11:04pm BP Systolic 110 mm[Hg] March 15, 2019 11:04pm BP Diastolic 56 mm[Hg] March 15, 2019 11:04pm Height 60 [in_i] March 17, 2019 12:13pm Weight 136.00 [lb_av] March 17, 2019 12:13pm Body Temperature 98.7 [degF] 97.6-99.5 March 17, 2019 1:41pm Heart Rate 60 /min 60-100 March 17, 2019 1:41pm Respiratory rate 16 /min 12-24 March 17, 2019 1:41pm Oxygen saturation by Pulse oximetry 100 % 95-100 March 17, 2019 1:41pm BP Systolic 106 mm[Hg] March 17, 2019 1:41pm BP Diastolic 80 mm[Hg] March 17, 2019 1:41pm Height 60 [in_i] March 20, 2019 5:29pm Weight 133.60 [lb_av] March 20, 2019 5:29pm Body Temperature 98.5 [degF] 97.6-99.5 March 21, 2019 2:47pm Heart Rate 66 /min 60-100 March 21, 2019 2:47pm Respiratory rate 16 /min -March 21, 2019 2:47pm Oxygen saturation by Pulse oximetry 96 % 95- 100 March 21, 2019 2:47pm BP Systolic 101 mm[Hg] March 21, 2019 2:47pm BP Diastolic 60 mm[Hg] March 21, 2019 2:47pm BMI (Body Mass Index) 26.1 kg/m2 March 20, 2019 5:29pm Height 60 [in_i] March 29, 2019 11:57am Weight 133.00 [lb_av] March 29, 2019 11:57am Body Temperature 98.6 [degF] 97.6-99.5 March 29, 2019 11:57am Heart Rate 97 /min 60-100 March 29, 2019 11:57am Oxygen saturation by Pulse oximetry 98 % 95- 100 March 29, 2019 11:57am BP Systolic 126 mm[Hg] March 29, 2019 11:57am BP Diastolic 80 mm[Hg] March 29, 2019 11:57am BMI (Body Mass Index) 25.9 kg/m2 March 29, 2019 11:57am Height 60 [in_i] August 31, 2019 1:42pm Weight 141.12 [lb_av] August 31, 2019 1:42pm Body Temperature 98.6 [degF] 97.6-99.5 August 31, 2019 1:42pm Heart Rate 81 /min 60-100 August 31, 2019 1:42pm Respiratory rate 18 /min -August 31, 2019 1:42pm Oxygen saturation by Pulse oximetry 99 % 95- 100 August 31, 2019 1:42pm BP Systolic 110 mm[Hg] August 31, 2019 1:42pm BP Diastolic 82 mm[Hg] August 31, 2019 1:42pm BMI (Body Mass Index) 27.6 kg/m2 August 31, 2019 1:42pm Height 60 [in_i] December 18, 2019 9:25am Weight 140.12 [lb_av] December 18, 2019 9:25am Body Temperature 98 [degF] 97.6-99.5 December 18, 2019 9:25am Heart Rate 89 /min 60-100 December 18, 2019 9:25am Respiratory rate 16 /min -December 18, 2019 9:25am Oxygen saturation by Pulse oximetry 98 % 95- 100 December 18, 2019 9:25am BP Systolic 122 mm[Hg] December 18, 2019 9:25am BP Diastolic 76 mm[Hg] December 18, 2019 9:25am BMI (Body Mass Index) 27.3 kg/m2 December 18, 2019 9:25am Height 60 [in_i] January 18, 2020 3:26pm Weight 142.37 [lb_av] January 18, 2020 3:26pm Body Temperature 98.6 [degF] 97.6-99.5 January 18, 2020 3:26pm Heart Rate 85 /min 60-100 January 18, 2020 3:26pm Respiratory rate 18 /min -January 18, 2020 3:26pm Oxygen saturation by Pulse oximetry 98 % 95- 100 January 18, 2020 3:26pm BP Systolic 110 mm[Hg] January 18, 2020 3:26pm BP Diastolic 70 mm[Hg] January 18, 2020 3:26pm BMI (Body Mass Index) 27.8 kg/m2 January 18, 2020 3:26pm Hospital Discharge Instructions
--- OUTSIDE RECORDS SUMMARY | 2020-04-05 11:30 | CCD | Continuity of Care Document ---
Author Author [facility] Organization [facility] Address [address] [place] [address] Phone Support Name Relationship Address Phone Amarjit Hanks [place] [address] Gunner Woods PRS [address] [place] [address] Reynold Jeffrey PRS [address] [place] [address] Po Pozo PRS [address] [place] [address] Hardy Rosario PRS [address] [place] [address] Golden Arboleda PRS [address] [place] [address] Stone Agarwal PRS [address] [place] [address] Mikayla Garner PRS Unknown Unavailable Violet Farris PRS [address] [place] [address] Mariza Schrader [place] [address] John Abad PRS [address] [place] [address] Allergies, Adverse Reactions, Alerts Allergen Type Severity [...] 2018 8:48am August 31, 2019 12:49pm Duloxetine Discontinued 60 MG PO daily August 31, 2019 12:47pm March 12, 2020 10:51am Topiramate (Topamax) 100 mg tablet Active 300 [...] March 17, 2019 12:23pm 6.9 10e3/uL 4.45-10.71 [facility], [address] [place], [place] [id number] White Blood Count March 15, 2019 6:44p m 7.2 10e3/uL 4.45-10.71 [facility], [address] [place] [address] 21863 Red Blood Count March 17, 2019 12:23pm 4.34 10e6/uL 4.20-5.40 [facility], [address] [place] [address] 34844 Red Blood Count March 15, 2019 6:44pm 4.26 10e6/uL 4.20-5.40 [facility], [address] [place] [address] 08439 Hemoglobin March 17, 2019 12:23pm 13.6 g/dL 10.7-15.4 [facility], [address] [place] [address] Hemoglobin March 15, 2019 6:44pm 13.4 g/dL 10.7-15.4 [facility], [address] [place] [address] 57705 Hematocrit March 17, 2019 12:23pm 41.6 % 37-47 [facility], [address] [place] [address] 06382 Hematocrit March 15, 2019 6:44pm 41.3 % 37-47 [facility], [address] [place] [address] 06048 Mean Corpuscular Volume March 12:23pm 95.9 fl 80-96 [facility], [address] [place] [address] Mean Corpuscular Volume March 6:44pm 96.9 fl 80-96 [facility], [address] [place] [address] Mean Corpuscular Hemoglobin March 17, 2019 12:23pm 31.3 pg 27-31 [facility], [address] [place] [address] Mean Corpuscular Hemoglobin March 15, 2019 6:44pm 31.5 pg 27-31 [facility], [address] [place] [address] Mean Corpuscular Hemoglobin Concent March 17, 2019 12:23pm 32.7 g/dl 33-37 [facility], [address] [place] [address] Mean Corpuscular Hemoglobin Concent March 15, 2019 6:44pm 32.4 g/dl 33-37 [facility], [address] [place] [address] 53583 Red Cell Distribution Width March 17, 2019 12:23pm 12 % 11-15 [facility], [address] [place] [address] 63562 Red Cell Distribution Width March 15, 2019 6:44pm 12 % 11-15 [facility], [address] [place] [address] 19056 Platelet Count March 17, 2019 12:23pm 224 10e3/ul 130-472 [facility], [address] [place] [address] Platelet Count March 15, 2019 6:44pm 236 10e3/ul 130-472 [facility], [address] [place] [address] 57341 Mean Platelet Volume March 17, 2 020 12:23pm 9.1 fl 9.1-13.1 [facility], [address] [place] [address] Mean Platelet Volume March 15, 2 020 6:44pm 9.3 fl 9.1-13.1 [facility], [address] [place] [address] 31901 Neutrophils (%) (Auto) March 17, 2019 12:23pm 62.8 % 41-77 [facility], [address] [place] [address] Neutrophils (%) (Auto) March 15, 2019 6:44pm 78.5 % 41-77 [facility], [address] [place] [address] 89525 Absolute Neutrophil March 17 12:23pm 4.3 # 1.7-7.6 [facility], [address] [place] [address] Absolute Neutrophil March 15 6:44pm 5.7 # 1.7-7.6 [facility], [address] [place] [address] 12887 Lymphocytes (%) (Auto) March 17, 2019 12:23pm 26.2 % 14-46 [facility], [address] [place] [address] 94653 Lymphocytes (%) (Auto) March 15, 2019 6:44pm 12.6 % 14-46 [facility], [address] [place] [address] 83179 Lymphocytes # (Auto) March 17, 020 12:23pm 1.8 # 0.6-4.6 [facility], [address] [place] [address] 51178 Lymphocytes # (Auto) March 15, 020 6:44pm 0.9 # 0.6-4.6 [facility], [address] [place] [address] 80704 Monocytes (%) (Auto) March 17, 020 12:23pm 9.3 % 4-12 [facility], [address] [place] [address] 90869 Monocytes (%) (Auto) March 15, 020 6:44pm 7.6 % 4-12 [facility], [address] [place] [address] 97220 Monocytes # March 17, 2019 12:23pm 0.6 # 0.2-1.2 [facility], [address] [place] [address] 09846 Monocytes # March 15, 2019 6:44pm 0.6 # 0.2-1.2 [facility], [address] [place] [address] Eosinophils (%) (Auto) March 17, 2019 12:23pm 1.3 % 0-7 [facility], [address] [place] [address] 68735 Eosinophils (%) (Auto) March 15, 2019 6:44pm 0.6 % 0-7 [facility], [address] [place] [address] 87897 Absolute Eosinophils (CBC) March 012019 12:23pm 0.1 # 0.0-0.5 [facility], [address] [place] [address] Absolute Eosinophils (CBC) March 012019 6:44pm 0.0 # 0.0-0.5 [facility], [address] [place] [address] 41475 Basophils (%) (Auto) March 17 020 12:23pm 0.3 % 0.4-1.3 [facility], [address] [place] [address] Basophils (%) (Auto) March 15 020 6:44pm 0.4 % 0.4-1.3 [facility], [address] [place] [address] Absolute Basophils (CBC) March 12:23pm 0.0 # 0.0-0.2 [facility], [address] [place] [address] Absolute Basophils (CBC) March 6:44pm 0.0 # 0.0-0.2 [facility], [address] [place] [address] 22961 Immature Granulocyte % (Auto) 2019 12:23pm 0.1 % 0-2 [facility], [address] [place] [address] Immature Granulocyte % (Auto) Marua2019 6:44pm 0.3 % 0-2 [facility], [address] [place] [address] 79848 Absolute Immature Granulocyte (auto March 17, 2019 12:23pm 0.0 # 0-0.1 [facility], [address] [place] [address] Absolute Immature Granulocyte (auto March 15, 2019 6:44pm 0.0 # 0-0.1 [facility], [address] [place] [address] 38343 Add Manual Differential March 12:23pm No [facility], [address] [place] [address] 81338 Add Manual Differential March 6:44pm No [facility], [address] [place] [address] 51165 Urine Color August 31, 2019 12:40pm Yellow [facility], [address] [place] [address] Urine Color March 15, 2019 6:35pm Yellow [facility], [address] [place] [address] 88000 Urine Appearance August 31, 2019 12:40pm Clear CLEAR [facility], [address] [place] [address] Urine Appearance March 15, 2019 6:35pm Clear CLEAR [facility], [address] [place] [address] 76108 Urine pH August 31, 2019 12:40pm 6.5 [facility], [address] [place] [address] Urine pH March 15, 2019 6:35pm 7.0 [facility], [address] [place] [address] 46602 Urine Specific Elmo August 30 0 12:40pm 1.004 [facility], [address] [place] [address] Urine Specific Elmo March 15, 2019 6:35pm 1.016 [facility], [address] [place] [address] 62685 Urine Leukocyte Esterase August 30 12:40pm Negative NEGATIVE [facility], [address] [place] [address] Urine Leukocyte Esterase March 6:35pm Negative NEGATIVE [facility], [address] [place] [address] 37782 Urine Nitrate August 31, 2019 12:40pm Negative NEGATIVE [facility], [address] [place] [address] 86575 Urine Nitrate March 15, 2019 6:35pm Negative NEGATIVE [facility], [address] [place] [address] 40558 Urine Protein August 31, 2019 12:40pm Negative NEGATIVE [facility], [address] [place] [address] 78958 Urine Protein March 15, 2019 6:35pm Negative NEGATIVE [facility], [address] [place] [address] 23447 Urine Glucose August 31, 2019 12:40pm Negative NEGATIVE [facility], [address] [place] [address] 50152 Urine Glucose March 15, 2019 6:35pm Negative NEGATIVE [facility], [address] [place] [address] 43192 Urine Ketones August 31, 2019 12:40pm Negative NEGATIVE [facility], [address] [place] [address] 75176 Urine Ketones March 15, 2019 6:35pm Negative NEGATIVE [facility], [address] [place] [address] Urine Urobilinogen August 31, 2019 12:40pm 0.2 eu/dl [facility], [address] [place] [address] 52564 Urine Urobilinogen March 15 0 6:35pm 1 eu/dl [facility], [address] [place] [address] 20750 Urine Bilirubin August 31, 2019 12:40pm Negative NEGATIVE [facility], [address] [place] [address] 80889 Urine Bilirubin March 15, 2019 6:35pm Negative NEGATIVE [facility], [address] [place] [address] 21168 Urine Blood August 31, 2019 12:40pm Negative NEGATIVE [facility], [address] [place] [address] 27234 Urine Blood March 15, 2019 6:35pm Negative NEGATIVE [facility], [address] [place] [address] 94581 Add Urine Microanalysis August 30 12:40pm No [facility], [address] [place] [address] 45730 Add Urine Microanalysis March 6:35pm No [facility], [address] [place] [address] 27617 Blood Urea Nitrogen March 17 12:23pm 10 mg/dL 11-21 [facility], [address] [place] [address] Blood Urea Nitrogen March 15 6:44pm 11 mg/dL 11-21 [facility], [address] [place] [address] 98309 Sodium Level March 17, 2019 12:23pm 141 mmol/L 132-146 [facility], [address] [place] [address] 76209 Sodium Level March 15, 2019 6:44pm 142 mmol/L 132-146 [facility], [address] [place] [address] 42371 Potassium Level March 17, 2019 12:23pm 3.9 mmol/L 3.5-5.5 [facility], [address] [place] [address] 41811 Potassium Level March 15, 2019 6:44pm 3.5 mmol/L 3.5-5.5 [facility], [address] [place] [address] 05427 Chloride Level March 17, 2019 12:23pm 112 mmol/l 99-109 [facility], [address] [place] [address] 53124 Chloride Level March 15, 2019 6:44pm 112 mmol/l 99-109 [facility], [address] [place] [address] 15476 Carbon Dioxide Level March 17 12:23pm 23 mmol/l 20- [facility], [address] [place] [address] 49328 Carbon Dioxide Level March 15 6:44pm 23 mmol/l [facility], [address] [place] [address] 04571 Anion Gap March 17, 2019 12:23pm 10 mmol/l 8-16 [facility], [address] [place] [address] 16926 Anion Gap March 15, 2019 6:44pm 11 mmol/l 8-16 [facility], [address] [place] [address] 52560 Glucose Level March 17, 2019 12:23pm 96 mg/dL 74-106 [facility], [address] [place] [address] 31616 Glucose Level March 15, 2019 6:44pm 93 mg/dL 74-106 [facility], [address] [place] [address] 80805 Creatinine March 17, 2019 12:23pm 0.8 mg/dL 0.5-1.1 [facility], [address] [place] [address] 46032 Creatinine March 15, 2019 6:44pm 0.8 mg/dL 0.5-1.1 [facility], [address] [place] [address] 64927 Glomerular Filtration Rate Calc Vineet astrid 2019 12:23pm Greater than 60 ml/min ABOVE 60 [facility], [address] [place] [address] 74683 Glomerular Filtration Rate Calc Vineet astrid 2019 6:44pm Greater than 60 ml/min ABOVE 60 [facility], [address] [place] [address] 77920 Alanine Aminotransferase (ALT/SGPT) March 17, 2019 12:23pm 21 U/L 10-49 [facility], [address] [place] [address] 09965 Alanine Aminotransferase (ALT/SGPT) March 15, 2019 6:44pm 13 U/L 10-49 [facility], [address] [place] [address] 96586 Aspartate Amino Transf (AST/SGOT) [facility] 2019 12:23pm 21 U/L 0-33 [facility], [address] [place] [address] 06309 Aspartate Amino Transf (AST/SGOT) [facility] 2019 6:44pm 14 U/L 0-33 [facility], [address] [place] [address] 98373 Alkaline Phosphatase March 17 12:23pm 94 U/L 45-129 [facility], [address] [place] [address] 77968 Alkaline Phosphatase March 15 6:44pm 100 U/L 45-129 [facility], [address] [place] [address] 88486 Amylase Level March 17, 2019 12:23pm 52 U/L 30-118 [facility], [address] [place] [address] 62577 Amylase Level March 15, 2019 6:44pm 53 U/L 30-118 [facility], [address] [place] [address] 74151 Lipase March 17, 2019 12:23pm 126 U/L 73-393 [facility], [address] [place] [address] 47736 Lipase March 15, 2019 6:44pm 130 U/L 73-393 [facility], [address] [place] [address] 59620 Calcium Level March 17, 2019 12:23pm 8.8 mg/dL 8.5-10.1 [facility], [address] [place] [address] 40821 Calcium Level March 15, 2019 6:44pm 8.7 mg/dL 8.5-10.1 [facility], [address] [place] [address] 17380 Total Bilirubin March 17, 2019 12:23pm 0.3 mg/dL 0.3-1.2 [facility], [address] [place] [address] 90181 Total Bilirubin March 15, 2019 6:44pm 0.3 mg/dL 0.3-1.2 [facility], [address] [place] [address] 47158 Albumin March 17, 2019 12:23pm 3.8 g/dL 3.2-4.8 [facility], [address] [place] [address] 29190 Albumin March 15, 2019 6:44pm 3.9 g/dL 3.2-4.8 [facility], [address] [place] [address] 63452 Serum Total Protein March 17 12:23pm 7.6 g/dL 5.7-8.2 [facility], [address] [place] [address] 28188 Serum Total Protein March 15 6:44pm 7.6 g/dL 5.7-8.2 [facility], [address] [place] [address] 88811 Troponin I March 15, 2019 6:44pm Less than 0.010 ng/mL 0.00-0.09 Less than 0.09 NG/ML Negative0.10 - 0.77 NG/ML High Risk0.78 NG/ML or Greater Positive The WHO defined the cutoff (definition for diagnosis of NE)for this method as 0.78 ng/ml. [facility], [address] [place] [address] 12390 Surgical Pathology Specimen January 18, 2020 4:00pm See scanned report [facility], [address] [place] [address] 56304 Thin Prep Pap w Human Papilloma Vir August 31, 2019 1:00pm See scanned report [address] [address] Trichomonas DNA Probe August 31, 2019 1:00p m Negative Negative Performed at: [facility] [address] [id number] Director: Yajaira Moulton MD, Phone: [phone] [facility] , [address] [facility] [address] Gardnerella DNA Probe August 31, 2019 1:00p m Negative Negative [facility] , [address] [facility] [address] Alida species DNA Probe August 31, 2019 1:00pm Negative Negative [facility] , [address] [facility] [address] Chlamydia trachomatis (RADHA) (LAB) 2019 1:00pm Negative Negative [facility] , [address] [facility] [address] Neisseria gonorrhoeae DNA (RADHA) August 31, 2019 1:00pm Negative Negative Performed at: [facility] [address] [place], [place] [id number] Director: Yajaira Moulton MD, Phone: [phone] [facility] , [address] [facility] [address] Diagnostic Imaging Reports Report Dictated Date/Time Dictated By Status Radiology Report March 15, 2019 4:37pm Sigrid Shaw MD completed [place] [address] [facility] [address] [place], [place] [address] [phone] NAME SEX PT STATUS ACCOUNT NUMBER PETROS HERRING REG ER [id number] ORDERING PHYSICIAN LOCATION MEDICAL RECORD NO. Reynold Jeffrey ER [id number] ATTENDING PHYSICIAN DATE OF DATE OF EXAM/TIME Rebecca Hanks, RNC 1990 03/[birth year]/191900 TYPE / EXAM US Abd [...] findings REPORT SIGNATURE ON FILE 03/15/2019 (16:37 [place] Time ) Signed by: Sigrid Shaw M.D. Reported By Sigrid Shaw MD on 03/15/191636 Signed By Sigrid Shaw MD on 03/15/191636 Date Time CC: Sigrid Shaw MD; Rebecca Hanks Techn: TABSA Trans Dt/Tm: Trans by: DT Prt Dt/Tm: 8733-5739: Total DLP = 0.00 mGy-cm 6216-3013: Total Radiation Dose = 0.0000 mSv Lifetime Dose: 0 mSv Radiology Report March 17, 2019 12:23p m Marquis Fabian MD completed [facility] [address] [id number] [phone] NAME SEX PT STATUS ACCOUNT NUMBER PETROS HERRING PRE REF [id number] ORDERING PHYSICIAN LOCATION MEDICAL RECORD NO. Reynold Aldanasimón [place] [id number] ATTENDING PHYSICIAN DATE OF DATE OF EXAM/TIME [...] Directive Response Recorded Date/Time Advanced Directive No [facility] 2019 11:55am Does Patient have a DNR? No August 31, 2019 4:31pm Healthcare Proxy No August 31, 2019 4:31pm Living Will No August 31, 2019 4:31pm Chief Complaint and Reason for Visit Chief Complaint Pelvic pain ADBOMINAL PAIN SIDE PAIN RUQ PAIN Gallbladder problems Hospital Discharge Follow-up Amb Documentation ACCOUNTING MACHINE SERVICER annual exam Z01.419, Z12.4 Medication check ACCOUNTING MACHINE SERVICER Medication check Medication check Reason for Visit Abnormal Pap smear of cervix Contraception management Hypomenorrhea/oligomenorrhea Contraception management Hypomenorrhea/oligomenorrhea Encounters Encounter Location(s) Ar rival/Admit Date Discharge/Depart Date Provider(s) Departed Physician/Provider Office Visit -[facility] March 15, 2019 3:31pm March 15, 2019 4:29pm Gunner Woods DO Departed Emergency -Emergency Room ER March 15, 2019 4:30pm March 15, 2019 11:07pm null Departed Emergency -Emergency Room ER March 17, 2019 12:05pm March 17, 2019 1:43pm null Registered Referred -Nuclear Medicine March 17, 2019 1:22pm AYLEEN Gautam Registered Outpatient -[facility] Surgery March 20, 2019 3:12pm March [id number] 4:00pm Golden Arboleda MD Departed Physician/Provider Office Visit -[facility] Surgery March 29, 2019 11:49am March 29, 2019 12:38pm Stone Agarwal MD Registered Outpatient -[facility] March 31, 2019 1:58pm Mikayla Pascual Departed Physician/Provider Office Visit -[facility] August 31, 2019 12:28pm August 30 1:33pm Violet Farris MD Registered Referred -Lab Drop Off August 31, 2019 3:46pm Violet Farris MD Departed Physician/Provider Office Visit -[facility] December 18, 2019 8:04am December 18, 2019 9:01am Zachery Schrader II, MD Departed Physician/Provider Office Visit -[facility] January 18, 2020 2:40pm January 18, 2020 4:23pm Matthew Abad MD Registered Referred -Laboratory January 18, 2020 5:44pm Matthew barber MD Departed Physician/Provider Office Visit -[facility] March 12, 2020 10:38am March 12, 2020 11:21am Matthew Abad MD Recent Diagnosis Onset Date [...] Equipment Information available Insurance Providers Guarantor Petros Bryan Herring Address [address] [place] [address] Contact Info. Home Phone: Payer Policy Id Coverage Id Subscriber's Name Subscriber Id Effective Date Expiration Date BC/BS [facility] [id number] Petros Herring [id number] BC/BS OF [facility] [id number] Petros Herring [id number] MVP [facility] [id number] Petros Herring [id number] MVP(ZA) Self Pay Self N/A Plan of Treatment 1. ACCOUNTING MACHINE SERVICER evaluation: Irregular uterine bleeding, minimal flow, abnormal Pap and contraception. 2. Labs: Pap/HPV, GC/chlamydia, PCR swab vagina, UA/C&S. 1. Status post LEEP which revealed stage I cervical CA on 01/20/2017. Has not had a Pap since then. 2. Patient states she has had a long period of amenorrhea and several attempts to induce bleeding with her ACCOUNTING MACHINE SERVICER, in that process the Pap has not [...] hypomenorrhea, oligomenorrhea: Patient states to date, her ACCOUNTING MACHINE SERVICER h as not been able to explain [...] Information Provider Address Golden Arboleda MD Email: [email or web address] Phone: [phone] [address] Golden Arboleda MD Email: [email or web address] Phone: [phone] [address] Future Procedures Future procedure information is unavailable Future Medications Future medication information is unavailable Patient Instructions Biliary Colic (ED) Colecistectom a laparosc pica ([place]) Social History Smoking Status Status Date of [...] erence Range Collection Date/Time Height 60 [in_i] March 15, 2019 3:40pm [...] 21, 2019 2:47pm Respiratory rate 16 /min 12-March 21, 2019 2:47pm Oxygen saturation by Pulse [...] 18, 2019 9:25am Respiratory rate 16 /min 12-December 18, 2019 9:25am Oxygen saturation by Pulse [...] Index) 27.8 kg/m2 January 18, 2020 3:26pm Height 60 [in_i] March 12, 2020 10:46am Weight 149.00 [lb_av] March 12, 2020 10:46am Body Temperature 98.1 [degF] 97.6-99.5 March 12, 2020 10:46am Heart Rate 94 /min 60-100 March 12, 2020 10:46am Respiratory rate 18 /min 12-March 12, 2020 10:46am Oxygen saturation by Pulse oximetry 95 % 95- 100 March 12, 2020 10:46am BP Systolic 120 mm[Hg] March 12, 2020 10:46am BP Diastolic 80 mm[Hg] March 12, 2020 10:46am BMI (Body Mass Index) 29.0 kg/m2 March 12, 2020 10:46am
--- OUTSIDE RECORDS SUMMARY | 2020-04-05 11:30 | CCD | Continuity of Care Document ---
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 Social History Type Date Description Comments Sex Unknown ETOH Use Occasionally consumes alcohol Tobacco Use Start: Unknown Patient has never smoked Tobacco Use Start: Unknown The Patient Has Never Vaped Smoking Status Reviewed: 02/02/20 The Patient Has Never Vaped Allergies, Adverse Reactions, Alerts Active Allergies Reaction Severity Comments Date Sulfa 03/17/2008 Tramadol Urticaria 01/01/2011 Inactive Allergies NKDA 03/17/2008 Medications Active Medications SIG Qnty Indications Ordering Provide r Date Topamax bd Unknown Duloxetine HCL 20mg Caps DR Part 1 by mouth every day Unknown Aimovig 140mg/ml Solution Auto-Inj ect Once a month Unknown Immunizations Description No Information Available Vital Signs Date Vital Result Comment 02/02/2020 12:19pm BP Systolic 120 mmHg BP Diastolic 80 mmHg Heart Rate 75 /min Respiratory Rate 12 /min O2 % BldC Oximetry 98 % Body Temperature 98.2 F Weight 137.00 lb Height 60 inches 5'0" BMI (Body Mass Index) 26.8 kg/m2 Pain Level 4 12/04/2018 11:48am BP Systolic 119 mmHg BP Diastolic 82 mmHg Heart Rate 83 /min Respiratory Rate 16 /min O2 % BldC Oximetry 98 % Body Temperature 98.6 F Weight 135.00 lb Height 60 inches 5'0" BMI (Body Mass Index) 26.4 kg/m2 Pain Level 4 Results Description No Information Available Procedures Description No Information Available Medical Devices Description No Information Available Encounters Type Date Location Provider Dx Diagnosis Office Visit 02/02/2020 12:15p Main Office AYLEEN Mar J06 .9 Acute upper respiratory infection, unspecified Z20.828 Contact w and exposure to ot h viral communicable diseases Assessments Date Code Description Provider 02/02/2020 J06.9 Acute upper respiratory infectio n, unspecified AYLEEN Mar 02/02/2020 Z20.828 Contact with and (lacy spected) exposure to other viral communicable diseases AYLEEN Mar Plan of Treatment No Information Available Functional Status Description No Information Available Mental Status Description No Information Available Referrals Description No Information Available
--- OUTSIDE RECORDS SUMMARY | 2020-04-05 11:30 | CCD | Continuity of Care Document ---
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
--- OUTSIDE RECORDS SUMMARY | 2020-04-05 11:31 | CCD ---
Author Author [facility] Organization [facility] Address Unknown Phone Unavailable Care Team Providers Care Mill Worker Name Role Phone Nkechi [phone] MD Golden LOZA Unavailable Unavailable Nkechi [phone] MD Golden LOZA Unavailable Unavailable Nkechi [phone] MD Golden LOZA Unavailable Unavailable Schrader II, Mariza Bingham M.D. Unavailable Unavailable Schrader II, Mariza Bingham M.D. Unavailable Unavailable Schrader II, Mariza Bingham M.D. Unavailable Unavailable Schrader II, Mariza Bingham M.D. Unavailable Unavailable Schrader II, Mariza Bingham M.D. Unavailable Unavailable Schrader II, Mariza Bingham M.D. Unavailable Unavailable Schrader II, Mariza Bingham M.D. Unavailable Unavailable Schrader II, Mariza Bingham M.D. Unavailable Unavailable Schrader II, Mariza Bingham M.D. Unavailable Unavailable Schrader II, Mariza Bingham M.D. Unavailable Unavailable Schrader II, Mariza Bingham M.D. Unavailable Unavailable Schrader II, A Zachery M.D. Unavailable Unavailable Schrader II, A Zachery Tapia Unavailable Unavailable Schrader II, A Zachery Tapia Unavailable Unavailable Schrader II, A Zachery Tapia Unavailable Unavailable Schrader II, A Zachery Tapia Unavailable Unavailable Schrader II, A Zachery Tapia Unavailable Unavailable Schrader II, A Zachery Tapia Unavailable Unavailable Schrader II, A Zachery Jimenez. Unavailable Unavailable Schrader II, A Zachery Jimenez. Unavailable Unavailable Schrader II, A Zachery Tapia Unavailable Unavailable Schrader II, A Zachery Tapia Unavailable Unavailable Schrader II, A Zachery Jimenez. Unavailable Unavailable Schrader II, A Zachery Jimenez. Unavailable Unavailable Schrader II, A Zachery Tapia Unavailable Unavailable Schrader II, A Zachery Tapia Unavailable Unavailable Schrader II, A Zachery Tapia Unavailable Unavailable Schrader II, A Zachery Jimenez. Unavailable Unavailable Schrader II, A Zachery Tapia Unavailable Unavailable Schrader II, A Zachery Tapia Unavailable Unavailable Schrader II, A Zachery Tapia Unavailable Unavailable Schrader II, A Zachery Tapia Unavailable Unavailable Schrader II, A Zachery Tapia Unavailable Unavailable Schrader II, A Zachery Tapia Unavailable Unavailable Schrader II, A Zachery Tapia Unavailable Unavailable Schrader II, A Zachery Tapia Unavailable Unavailable Schrader II, A Zachery Tapia Unavailable Unavailable Schrader II, A Zachery Tapia Unavailable Unavailable Schrader II, A Zachery Tapia Unavailable Unavailable Schrader II, A Zachery Tapia Unavailable Unavailable Schrader II, A Zachery Tapia Unavailable Unavailable Schrader II, A Zachery Tapia Unavailable Unavailable Schrader II, A Zachery Tapia Unavailable Unavailable Schrader II, A Zahcery Tapia Unavailable Unavailable Schrader II, A Zachery Tapia Unavailable Unavailable Schrader II, A Zachery Tapia Unavailable Unavailable Schrader II, A Zachery Tapia Unavailable Unavailable Schrader II, A Zachery Tapia Unavailable Unavailable Schrader II, A Zachery Tapia Unavailable Unavailable Schrader II, A Zachery Tapia Unavailable Unavailable Schrader II, A Zachery Tapia Unavailable Unavailable Schrader II, Mariza Bingham M.D. Unavailable Unavailable Schrader II, Mariza Bingham M.D. Unavailable Unavailable Schrader II, Mariza Bingham M.D. Unavailable Unavailable Po Pozo MD Unavailable Unavailable Maxwell, Mouna ROOM SERVER Unavailable Unavailable Maxwell, Mouna ROOM SERVER Unavailable Unavailable Maxwell, Mouna ROOM SERVER Unavailable Unavailable Maxwell, Mouna ROOM SERVER Unavailable Unavailable Maxwell, Mouna ROOM SERVER Unavailable Unavailable Maxwell, Mouna ROOM SERVER Unavailable Unavailable Maxwell, Mouna ROOM SERVER Unavailable Unavailable Maxwell, Mouna ROOM SERVER Unavailable Unavailable Maxwell, Mouna ROOM SERVER Unavailable Unavailable Maxwell, Mouna ROOM SERVER Unavailable Unavailable Maxwell, Mouna ROOM SERVER Unavailable Unavailable Maxwell, Mouna ROOM SERVER Unavailable Unavailable Maxwell, Mouna ROOM SERVER Unavailable Unavailable Maxwell, Mouna ROOM SERVER Unavailable Unavailable Maxwell, Mouna ROOM SERVER Unavailable Unavailable Maxwell, Mouna ROOM SERVER Unavailable Unavailable Maxwell, Mouna ROOM SERVER Unavailable Unavailable Maxwell, Mouna ROOM SERVER Unavailable Unavailable Maxwell, Mouna ROOM SERVER Unavailable Unavailable Maxwell, Mouna ROOM SERVER Unavailable Unavailable Maxwell, Mouna ROOM SERVER Unavailable Unavailable Maxwell, Mouna ROOM SERVER Unavailable Unavailable Maxwell, Mouna ROOM SERVER Unavailable Unavailable Maxwell, Mouna ROOM SERVER Unavailable Unavailable Maxwell, Mouna ROOM SERVER Unavailable Unavailable Maxwell, Mouna ROOM SERVER Unavailable Unavailable Maxwell, Mouna ROOM SERVER Unavailable Unavailable Luthringer, O Esau MD Unavailable Unavailable Luthringer, O Esau MD Unavailable Unavailable Luthringer, O Esau MD Unavailable Unavailable Luthringer, O Esau MD Unavailable Unavailable Luthringer, O Esau MD Unavailable Unavailable Luthringer, O Esau MD Unavailable Unavailable Luthringer, O Esau MD Unavailable Unavailable Luthringer, O Esau MD Unavailable Unavailable Luthringer, O Esau MD Unavailable Unavailable Luthringer, O Esau MD Unavailable Unavailable Luthringer, O Esau MD Unavailable Unavailable Luthringer, O Esau MD Unavailable Unavailable Luthringer, O Esau MD Unavailable Unavailable Luthringer, O Esau MD Unavailable Unavailable Luthringer, O Esau MD Unavailable Unavailable Luthringer, O Esau MD Unavailable Unavailable Luthringer, O Esau MD Unavailable Unavailable Luthringer, O Esau MD Unavailable Unavailable Luthringer, O Esau MD Unavailable Unavailable Luthringer, O Esau MD Unavailable Unavailable Luthringer, O Esau MD Unavailable Unavailable Luthringer, O Esau MD Unavailable Unavailable Luthringer, O Esau MD Unavailable Unavailable Luthringer, O Esau MD Unavailable Unavailable Luthringer, O Esau MD Unavailable Unavailable Luthringer, O Esau MD Unavailable Unavailable Luthringer, O Esau MD Unavailable Unavailable Luthringer, O Esau MD Unavailable Unavailable Luthringer, O Esau MD Unavailable Unavailable Luthringer, O Esau MD Unavailable Unavailable Luthringer, O Esau MD Unavailable Unavailable Luthringer, O Esau MD Unavailable Unavailable Luthringer, O Esau MD Unavailable Unavailable Luthringer, O Esau MD Unavailable Unavailable Luthringer, O Seau MD Unavailable Unavailable Luthringer, O Esau MD Unavailable Unavailable Luthringer, O Esau MD Unavailable Unavailable Luthringer, O Esau MD Unavailable Unavailable Luthringer, O Esau MD Unavailable Unavailable Luthringer, O Esau MD Unavailable Unavailable Luthringer, O Esau MD Unavailable Unavailable Luthringer, O Esau MD Unavailable Unavailable Luthringer, O Esau MD Unavailable Unavailable Luthringer, O Esau MD Unavailable Unavailable Luthringer, O Esau MD Unavailable Unavailable Luthringer, O Esau MD Unavailable Unavailable Luthringer, O Esau MD Unavailable Unavailable Luthringer, O Esau MD Unavailable Unavailable Luthringer, O Esau MD Unavailable Unavailable Luthringer, O Seau MD Unavailable Unavailable Luthringer, O Esau MD Unavailable Unavailable Luthringer, O Esau MD Unavailable Unavailable Luthringer, O Esau MD Unavailable Unavailable Luthringer, O Esau MD Unavailable Unavailable Luthringer, O Esau MD Unavailable Unavailable Luthringer, O Esau MD Unavailable Unavailable Luthringer, O Esau MD Unavailable Unavailable Luthringer, O Esau MD Unavailable Unavailable Luthringer, O Esau MD Unavailable Unavailable Luthringer, O Esau MD Unavailable Unavailable Luthringer, O Esau MD Unavailable Unavailable Luthringer, O Esau MD Unavailable Unavailable Luthringer, O Esau MD Unavailable Unavailable Luthringer, O Esau MD Unavailable Unavailable Luthringer, O Esau MD Unavailable Unavailable Luthringer, O Esua MD Unavailable Unavailable Luthringer, O Esau MD Unavailable Unavailable Luthringer, O Esau MD Unavailable Unavailable Luthringer, Keith Lyn MD Unavailable Unavailable Luthringer, Keith Lyn MD Unavailable Unavailable Luthringer, Keith Lyn MD Unavailable Unavailable Luthringer, Keith Lyn MD Unavailable Unavailable Luthringer, Keith Lyn MD Unavailable Unavailable Luthringer, Keith Lyn MD Unavailable Unavailable Malgorzata, K Skyler MD Unavailable Unavailable Malgorzata, K Skyler MD Unavailable Unavailable Malgorzaat, K Skyler MD Unavailable Unavailable Malgorzata, K Skyler MD Unavailable Unavailable Malgorzata, K Skyler MD Unavailable Unavailable Malgorzata, K Skyler MD Unavailable Unavailable Malgorzata, K Skyler MD Unavailable Unavailable Malgorzata, K Skyler MD Unavailable Unavailable Malgorzata, K Skyler MD Unavailable Unavailable Malgorzata, K Skyler MD Unavailable Unavailable Malgorzata, K Skyler MD Unavailable Unavailable Breslau, Gunner DO Unavailable Unavailable Breslau, Gunner DO Unavailable Unavailable Breslau, Gunner DO Unavailable Unavailable Breslau, Gunner DO Unavailable Unavailable Breslau, Gunner DO Unavailable Unavailable Breslau, Gunner DO Unavailable Unavailable Breslau, Gunner DO Unavailable Unavailable Breslau, Gunner DO Unavailable Unavailable Breslau, Gunner DO Unavailable Unavailable Breslau, Gunner DO Unavailable Unavailable Breslau, Gunner DO Unavailable Unavailable Breslau, Gunner DO Unavailable Unavailable Breslau, Gunner DO Unavailable Unavailable Breslau, Gunner DO Unavailable Unavailable Breslau, Gunner DO Unavailable Unavailable Breslau, Gunner DO Unavailable Unavailable Breslau, Gunner DO Unavailable Unavailable Breslau, Gunner DO Unavailable Unavailable Breslau, Gunner DO Unavailable Unavailable Breslau, Gunner DO Unavailable Unavailable [place], Gunner DO Unavailable Unavailable [place], Gunner DO Unavailable Unavailable [place], Gunner DO Unavailable Unavailable Anna De Guzman MD Unavailable Unavailable DEIDRE, J Rebecca ANP Unavailable Unavailable DEIDRE, J Rebecca ANP Unavailable Unavailable DEIDRE, J Rebecca ANP Unavailable Unavailable DEIDRE, J Rebecca ANP Unavailable Unavailable DEIDRE, J Rebecca ANP Unavailable Unavailable DEIDRE, J Rebecca ANP Unavailable Unavailable DEIDRE, J Rebecca ANP Unavailable Unavailable DEIDRE, J Rebecca ANP Unavailable Unavailable DEIDRE, J Rebecca ANP Unavailable Unavailable DEIDRE, J Rebecca ANP Unavailable Unavailable DEIDRE, J Rebecca ANP Unavailable Unavailable DEIDRE, J Rebecca ANP Unavailable Unavailable DEIDRE, J Rebecca ANP Unavailable Unavailable DEIDRE, J Reebcca ANP Unavailable Unavailable DEIDRE, J Rebecca ANP Unavailable Unavailable DEIDRE, J Rebecca ANP Unavailable Unavailable DEIDRE, J Rebecca ANP Unavailable Unavailable DEIDRE, J Rebecca ANP Unavailable Unavailable DEIDRE, J Rebecca ANP Unavailable Unavailable DEIDRE, J Rebecca ANP Unavailable Unavailable DEIDRE, J Rebecca ANP Unavailable Unavailable DEIDRE, J Rebecca ANP Unavailable Unavailable DEIDRE, J Rebecca ANP Unavailable Unavailable DEIDRE, J Rebecca ANP Unavailable Unavailable DEIDRE, J Rebecca ANP Unavailable Unavailable DEIDRE, J Rebecca ANP Unavailable Unavailable DEIDRE, J Rebecca ANP Unavailable Unavailable DEIDRE, J Rebecca ANP Unavailable Unavailable DEIDRE, J Rebecca ANP Unavailable Unavailable DEIDRE, J Rebecca ANP Unavailable Unavailable DEIDRE, J Rebecca ANP Unavailable Unavailable DEIDRE, J Rebecca ANP Unavailable Unavailable DEIDRE, J Rebecca ANP Unavailable Unavailable DEIDRE, J Rebecca ANP Unavailable Unavailable DEIDRE, J Rebecca ANP Unavailable Unavailable DEIDRE, J Rebecca ANP Unavailable Unavailable DEIDRE, J Rebecca ANP Unavailable Unavailable DEIDRE, J Rebecca ANP Unavailable Unavailable DEIDRE, J Rebecca ANP Unavailable Unavailable DEIDRE, J Rebecca ANP Unavailable Unavailable DEIDRE, J Rebecca ANP Unavailable Unavailable DEIDRE, J Rebecca ANP Unavailable Unavailable DEIDRE, J Rebecca ANP Unavailable Unavailable DEIDRE, J Rebecca ANP Unavailable Unavailable DEIDRE, J Rebecca ANP Unavailable Unavailable DEIDRE, J Rebecca ANP Unavailable Unavailable DEIDRE, J Rebecca ANP Unavailable Unavailable DEIDRE, J Rebecca ANP Unavailable Unavailable DEIDRE, J Rebecca ANP Unavailable Unavailable DEIDRE, J Rebecca ANP Unavailable Unavailable DEIDRE, J Rebecca ANP Unavailable Unavailable DEIDRE, J Rebecca ANP Unavailable Unavailable DEIDRE, J Rebecca ANP Unavailable Unavailable DEIDRE, J Rebecca ANP Unavailable Unavailable DEIDRE, J Rebecca ANP Unavailable Unavailable DEIDRE, J Rebecca ANP Unavailable Unavailable DEIDRE, J Rebecca ANP Unavailable Unavailable DEIDRE, J Rebecca ANP Unavailable Unavailable DEIDRE, J Rebecca ANP Unavailable Unavailable DEIDRE, J Rebecca ANP Unavailable Unavailable DEIDRE, J Rebecca ANP Unavailable Unavailable DEIDRE, J Rebecca ANP Unavailable Unavailable DEIDRE, J Rebecca ANP Unavailable Unavailable DEIDRE, J Rebecca ANP Unavailable Unavailable DEIDRE, J Rebecca ANP Unavailable Unavailable DEIDRE, J Rebecca ANP Unavailable Unavailable AVINASH PRAJAPATI MD Unavailable Unavailab AVINASH Gomez MD Unavailable Unavailab AVINASH Gomez MD Unavailable Unavailab AVINASH Gomez MD Unavailable Unavailab AVINASH Gomez MD Unavailable Unavailab AVINASH Gomez MD Unavailable Unavailab AVINASH Gomez MD Unavailable Unavailab AVINASH Gomez MD Unavailable Unavailab AVINASH Gomez MD Unavailable Unavailab AVINASH Gomez MD Unavailable Unavailab AVINASH Gomez MD Unavailable Unavailab AVINASH Gomez MD Unavailable Unavailab AVINASH Gomez MD Unavailable Unavailab AVINASH Gomez MD Unavailable Unavailab AVINASH Gomez MD Unavailable Unavailab AVINASH Gomez MD Unavailable Unavailab AVINASH Gomez MD Unavailable Unavailab AVINASH Gomez MD Unavailable Unavailab AVINASH Gomez MD Unavailable Unavailab AVNIASH Gomez MD Unavailable Unavailab AVINASH Gomez MD Unavailable Unavailab AVINASH Gomez MD Unavailable Unavailab AVINASH Gomez MD Unavailable Unavailab AVINASH Gomez MD Unavailable Unavailab AVINASH Gomez MD Unavailable Unavailab AVINASH Gomez MD Unavailable Unavailab AVINASH Gomez MD Unavailable Unavailab AVINASH Gomez MD Unavailable Unavailab AVINASH Gomez MD Unavailable Unavailab AVINASH Gomez MD Unavailable Unavailab AVINASH Gomez MD Unavailable Unavailab AVINASH Gomez MD Unavailable Unavailab AVINASH Gomez MD Unavailable Unavailab AVINASH Gomez MD Unavailable Unavailab AVINASH Gomez MD Unavailable Unavailab AVINASH Gomez MD Unavailable Unavailab AVINASH Gomez MD Unavailable Unavailab AVINASH Gomez MD Unavailable Unavailab AVINASH Gomez MD Unavailable Unavailab AVINAHS Gomez MD Unavailable Unavailab AVINASH Gomez MD Unavailable Unavailab AVINASH Gomez MD Unavailable Unavailab AVINASH Gomez MD Unavailable Unavailab AVINASH Gomez MD Unavailable Unavailab AVINASH Gomez MD Unavailable Unavailab AVINASH Gomez MD Unavailable Unavailab AVINASH Gomez MD Unavailable Unavailab KEIKO Pickett MD Unavailable Unavailable KEIKO FONG MD Unavailable Unavailable KEIKO FONG MD Unavailable Unavailable KEIKO FONG MD Unavailable Unavailable LETTIERE, A ANNA PA Unavailable Unavailable LETTIERE, A ANNA PA Unavailable Unavailable LETTIERE, A ANNA PA Unavailable Unavailable LETTIERE, A ANNA PA Unavailable Unavailable LETTIERE, A ANNA PA Unavailable Unavailable LETTIERE, A ANNA PA Unavailable Unavailable LETTIERE, A ANNA PA Unavailable Unavailable LETTIERE, A ANNA PA Unavailable Unavailable LETTIERE, A ANNA PA Unavailable Unavailable LETTIERE, A ANNA PA Unavailable Unavailable LETTIERE, A ANNA PA Unavailable Unavailable LETTIERE, A ANNA PA Unavailable Unavailable LETTIERE, A ANNA PA Unavailable Unavailable LETTIERE, A ANNA PA Unavailable Unavailable LETTIERE, A ANNA PA Unavailable Unavailable LETTIERE, A ANNA PA Unavailable Unavailable LETTIERE, A ANNA PA Unavailable Unavailable LETTIERE, A ANNA PA Unavailable Unavailable LETTIERE, A ANNA PA Unavailable Unavailable LETTIERE, A ANNA PA Unavailable Unavailable LETTIERE, A ANNA PA Unavailable Unavailable LETTIERE, A ANNA PA Unavailable Unavailable LETTIERE, A ANNA PA Unavailable Unavailable LETTIERE, A ANNA PA Unavailable Unavailable LETTIERE, A ANNA PA Unavailable Unavailable LETTIERE, A ANNA PA Unavailable Unavailable LETTIERE, A ANNA PA Unavailable Unavailable LETTIERE, A ANNA PA Unavailable Unavailable LETTIERE, A ANNA PA Unavailable Unavailable Bryan Agarwal MD Unavailable Unavailable Bryan Agarwal MD Unavailable Unavailable Bryan Agarwal MD Unavailable Unavailable Bryan Agarwal MD Unavailable Unavailable Bryan Agarwal MD Unavailable Unavailable Bryan Agarwal MD Unavailable Unavailable Bryan Agarwal MD Unavailable Unavailable Bryan Agarwal MD Unavailable Unavailable Bryan Agarwal MD Unavailable Unavailable Bryan Agarwal MD Unavailable Unavailable Bryan Agarwal MD Unavailable Unavailable Bryan Agarwal MD Unavailable Unavailable Hardy Rosario MD Unavailable Unavailable Deidre, Rebecca J Unavailable Unavailable Violet Farris MD Unavailable Unavailable DEIDRE, J Rebecca ANP Unavailable Unavailable DEIDRE, J Rebecca ANP Unavailable Unavailable DEIDRE, J Rebecca ANP Unavailable Unavailable DEIDRE, J Rebecca ANP Unavailable Unavailable DEIDRE, J Rebecca ANP Unavailable Unavailable DEIDRE, J Rebecca ANP Unavailable Unavailable DEIDRE, J Rebecca ANP Unavailable Unavailable DEIDRE, J Rebecca ANP Unavailable Unavailable DEIDRE, J Rebecca ANP Unavailable Unavailable DEIDRE, J Rebecca ANP Unavailable Unavailable DEIDRE, J Rebecca ANP Unavailable Unavailable DEIDRE, J Rebecca ANP Unavailable Unavailable DEIDRE, J Rebecca ANP Unavailable Unavailable DEIDRE, J Rebecca ANP Unavailable Unavailable DEIDRE, J Rebecca ANP Unavailable Unavailable DEIDRE, J Rebecca ANP Unavailable Unavailable DEIDRE, J Rebecca ANP Unavailable Unavailable DEIDRE, J Rebecca ANP Unavailable Unavailable DEIDRE, J Rebecca ANP Unavailable Unavailable DEIDRE, J Rebecca ANP Unavailable Unavailable DEIDRE, J Rebecca ANP Unavailable Unavailable DEIDRE, J Rebecca ANP Unavailable Unavailable DEIDRE, J Rebecca ANP Unavailable Unavailable DEIDRE, J Rebecca ANP Unavailable Unavailable DEIDRE, J Rebecca ANP Unavailable Unavailable DEIDRE, J Rebecca ANP Unavailable Unavailable DEIDRE, J Rebecca ANP Unavailable Unavailable DEIDRE, J Rebecca ANP Unavailable Unavailable DEIDRE, J Rebecca ANP Unavailable Unavailable DEIDRE, J Rebecca ANP Unavailable Unavailable DEIDRE, J Rebecca ANP Unavailable Unavailable DEIDRE, J Rebecca ANP Unavailable Unavailable DEIDRE, J Rebecca ANP Unavailable Unavailable DEIDRE, J Rebecca ANP Unavailable Unavailable DEIDRE, J Rebecca ANP Unavailable Unavailable DEIDRE, J Rebecca ANP Unavailable Unavailable DEIDRE, J Rebecca ANP Unavailable Unavailable DEIDRE, J Rebecca ANP Unavailable Unavailable DEIDRE, J Rebecca ANP Unavailable Unavailable DEIDRE, J Rebecca ANP Unavailable Unavailable DEIDRE, J Rebecca ANP Unavailable Unavailable DEIDRE, J Rebecca ANP Unavailable Unavailable DEIDRE, J Rebecca ANP Unavailable Unavailable DEIDRE, J Rebecca ANP Unavailable Unavailable DEIDRE, J Rebecca ANP Unavailable Unavailable DEIDRE, J Rebecca ANP Unavailable Unavailable DEIDRE, J Rebecca ANP Unavailable Unavailable DEIDRE, J Rebecca ANP Unavailable Unavailable DEIDRE, J Rebecca ANP Unavailable Unavailable DEIDRE, J Rebecca ANP Unavailable Unavailable DEIDRE, J Rebecca ANP Unavailable Unavailable DEIDRE, J Rebecca ANP Unavailable Unavailable DEIDRE, J Rebecca ANP Unavailable Unavailable DEIDRE, J Rebecca ANP Unavailable Unavailable DEIDRE, J Rebecca ANP Unavailable Unavailable DEIDRE, J Rebecca ANP Unavailable Unavailable DEIDRE, J Rebecca ANP Unavailable Unavailable DEIDRE, J Rebecca ANP Unavailable Unavailable DEIDRE, J Rebecca ANP Unavailable Unavailable DEIDRE, J Rebecca ANP Unavailable Unavailable DEIDRE, J Rebecca ANP Unavailable Unavailable DEIDRE, J Rebecca ANP Unavailable Unavailable DEIDRE, J Rebecca ANP Unavailable Unavailable DEIDRE, J Rebecca ANP Unavailable Unavailable DEIDRE, J Rebecca ANP Unavailable Unavailable DEIDRE, J Rebecca ANP Unavailable Unavailable Reynold Jeffrey Unavailable Unavailable John Abad MD Unavailable Unavailable Re-disclosure Warning The records that you are about to access may contain information from federally-assisted alcohol or drug abuse programs. If such information is present, then the following federally mandated warning applies: This information has been disclosed to you from records protected by federal confidentiality rules (42 CFR part 2). The federal rules prohibit you from making any further disclosure of this information unless further disclosure is expressly permitted by the written consent of the person to whom it pertains or as otherwise permitted by 42 CFR part 2. A general authorization for the release of medical or other information is NOT sufficient for this purpose. The Federal rules restrict any use of the information to criminally investigate or prosecute any alcohol or drug abuse patient.The records that you are about to access may contain highly sensitive health information, the redisclosure of which is protected by Article 27-F of the [facility] Public Health law. If you continue you may have access to information: Regarding HIV / AIDS; Provided by facilities licensed or operated by the [facility] Office of Mental Health; or Provided by the [facility] Office for People With Developmental Disabilities. If such information is present, then the following [facility] mandated warning applies: This information has been disclosed to you from confidential records which are protected by state law. State law prohibits you from making any further disclosure of this information without the specific written consent of the person to whom it pertains, or as otherwise permitted by law. Any unauthorized further disclosure in violation of state law may result in a fine or care home sentence or both. A general authorization for the release of medical or other information is NOT sufficient authorization for further disc losure. Allergies and Adverse Reactions Type Description Substance Reaction Status Data Source(s ) Drug allergy tramadol Tramadol itching [facility] Drug allergy Sulfa (Sulfonamide Antibiotics) Sulfa (Sulfonami de Antibiotics) Hives [facility] l Family History Family Member Name Family Member Gender Family Member Status Date o f Status Description Data Source(s) Unknown Condition [facility] Unknown Condition [facility] Unknown Condition [facility] Unknown Condition [facility] Unknown Condition [facility] Unknown Condition [facility] Unknown Condition [facility] Unknown Condition [facility] Unknown Condition [facility] Unknown Condition [facility] Unknown Condition [facility] Unknown Male Problem [facility] ([employer] [facility] Encounters Encounter Providers Location Date Indications Data Source(s ) Outpatient Attender: KEIKO FONG MD 05/15/2020 12:0 0:00 AM [facility] Outpatient Attender: KEIKO FONG MDReferrer: KEIKO FONG MD 04/17/2020 12:00:00 AM [facility] Outpatient Attender: ANNA resendiz 03/26/2020 07:30:00 AM EST [facility] ([facility]) Outpatient Attender: Mouna Casper 12:00:00 PM EST [facility] ([facility] ) Outpatient Attender: Matthew Abad MDReferrer: Rebecca HAMILTON CER ANP 03/12/2020 10:38:00 AM EST - 03/12/2020 11:21:00 AM EST [facility] Outpatient Attender: ANNA Melendez astrid 02/02/2020 11:15:00 AM EST [facility] ([facility]) Outpatient Attender: Matthew Abad MD 01/18/2020 05:44: 00 PM EST [facility] Outpatient Attender: Matthew Abad MDReferrer: Rebecca HAMILTON CER ANP 01/18/2020 02:40:00 PM EST - 01/18/2020 04:23:00 PM EST [facility] Outpatient Attender: Zachery Schrader IIReferrer: Rbeecca HAMILTONC ER ANP 12/18/2019 09:04:00 AM EDT - 12/18/2019 10:01:00 AM EDT [facility] Outpatient Attender: KEIKO FONG MDReferrer: Mouna Arreola [facility] [id number] 11/14/2019 12:00:00 AM EDT - 11/14/2019 11:52:03 AM ED T Chronic migraine without aura, not intractable, without status migrainosus [facility] Chronic migraine without aura, not intra ctable, without status migrainosus Attender: AVINASH PRAJAPATI MD 10/13/19 06:16:51 PM EDT [facility] Outpatient Attender: KEIKO FONG MD 10/13/2019 12:0 0:00 AM EDT [facility] [place] ( in Healthcare facility) Attender: Esau Talbert MDAdmitter: Esau Talbert MDConsultant: Rebecca Hanks 020 07:07:00 AM EDT - 10/12/2019 05:56:00 PM EDT [facility] Outpatient Attender: Esau Talbert MDAdmitter: Esau rader MD 10/12/2019 07:07:00 AM EDT - 10/12/2019 05:56:00 PM EDT DYSPAREUNIA (N94.1) AND IRREGULAR MENSES (N92.6) [facility] DYSPAREUNIA (N94.1) AND IRREGULAR MENSES (N92.6) Patient discharged. 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 Emergency Attender: Hardy Rosario MD 12:05:00 PM EST - 03/17/2019 01:43:00 PM EST SIDE PAIN [facility] SIDE PAIN Patient discharged. Outpatient Attender: Reynold ABBASI 03/17/2019 09:00:00 AM EST RUQ PAIN [facility] RUQ PAIN Emergency Attender: Skyler Mcgarry MDAtten krysta: Reynold Jeffrey PAConsultant: Po Pozo MD 03/15/2019 04:30:00 PM EST - 03/15/2019 11:07:00 PM EST ADBOMINAL PAIN [facility] ADBOMINAL PAIN Patient discharged. Outpatient Attender: Gunner Woods DOReferrer: Rebecca ENRIQUEZ 03/15/2019 03:31:00 PM EST - 03/15/2019 04:29:00 PM EST [facility] Outpatient Referrer: Rebecca ENRIQUEZ 02/13/2019 09:33:00 AM EST [facility] Imaging Immunizations Vaccine Date Status Description Data Source(s) Influenza, injectable, MDCK, preservative free, adeel valent 12/18/2019 10:46:00 AM EDT completed [facility] ([facility]) Medications Medication Brand Name Start Date Product Form Dose Route Admi nistrative Instructions Pharmacy Instructions Status Indications Reaction Description Data Source(s) 800 mg 03/26/2020 12:00:00 AM EST tablet 50 TAKE 1 TABLET BY MOUTH EVERY 6-8 HOURS WITH FOOD TAKE 1 TABLET BY MOUTH EVERY 6-8 HOURS WITH FOOD SOLD: 03/27/2020 [facility] Cyclobenzaprine hydrochloride 10 MG Oral Tablet Cyclobenzapr ine HCL 03/26/2020 12:00:00 AM EST active [facility] ([facility]) Cyclobenzaprine hydrochloride 10 MG Oral Tablet CYCLOBENZAPR INE HCL 03/26/2020 12:00:00 AM EST tablet 14 TAKE ONE TABLET BY MOUTH EVERY DAY AT BEDTIME TAKE ONE TABLET BY MOUTH EVERY DAY AT BEDTIME SOLD: 03/27/2020 [facility] Phentermine Hydrochloride 15 MG Oral Capsule PHENTERMINE HCL 03/26/2020 12:00:00 AM EST capsule 30 TAKE ONE CAPSULE BY MOUTH EVERY MORNING 1/2 HOUR BEFORE BREAKFAST, MAXIMUM DAILY DOSE = 1 TAKE ONE CAPSULE BY MOUTH EVERY MORNING 1/2 HOUR BEFORE BREAKFAST, MAXIMUM DAILY DOSE = 1 SOLD: 03/27/2020 [facility] Ibuprofen 800 MG Oral Tablet Ibuprofen 03/26/2020 12:00:00 AM EST active [facility] ([facility]) Phentermine Hydrochloride 15 MG Oral Capsule Phentermine HCL 03/25/2020 12:00:00 AM EST ORAL active [facility] ([facility]) 1-50 mg-mcg 12/21/2019 12:00:00 AM EDT tablet 84 TAKE ONE TABLET BY MOUTH TWICE A DAY X 4 DOSES THEN TAKE 1 DAILY ACTIVE PILLS ONLY TAKE ONE TABLET BY MOUTH TWICE A DAY X 4 DOSES THEN TAKE 1 DAILY ACTIVE PILLS ONLY SOLD: 12/27/2019 [facility] Ethynodiol Diac-Eth Estradiol 12/18/2019 09:57:53 AM EDT 1 TAB completed [facility] Ethynodiol Diac-Eth Estradiol 12/18/2019 09:57:53 AM EDT 1 TAB completed [facility] Ethynodiol Diac-Eth Estradiol 12/18/2019 09:57:53 AM EDT 1 TAB completed [facility] Immunization Adminstration,1 Vaccine/Toxoid 12/18/2019 12:00 :00 AM EDT completed [facility] ([facility]) Medication administered onsite 100 mg 11/22/2019 12:00:00 AM EDT tablet 60 TAKE ONE TABLET BY MOUTH TWICE A DAY IN THE MORNING AND AT BEDTIME TAKE ONE TABLET BY MOUTH TWICE A DAY IN THE MORNING AND AT BEDTIME SOLD: 12/27/2019 [facility] 100 mg 11/22/2019 12:00:00 AM EDT tablet 60 TAKE ONE TABLET BY MOUTH TWICE A DAY IN THE MORNING AND AT BEDTIME TAKE ONE TABLET BY MOUTH TWICE A DAY IN THE MORNING AND AT BEDTIME SOLD: 11/22/2019 [facility] 0.3-30 mg-mcg 11/22/2019 12:00:00 AM EDT tablet 84 TAKE ONE TABLET BY MOUTH EVERY DAY TAKE ONE TABLET BY MOUTH EVERY DAY SOLD: 11/22/2019 [facility] 100 mg 11/22/2019 12:00:00 AM EDT tablet 60 TAKE ONE TABLET BY MOUTH TWICE A DAY IN THE MORNING AND AT BEDTIME TAKE ONE TABLET BY MOUTH TWICE A DAY IN THE MORNING AND AT BEDTIME SOLD: 03/10/2020 [facility] 60 mg 11/22/2019 12:00:00 AM EDT capsule,delayed release (DR/EC) 30 TAKE ONE CAPSULE BY MOUTH EVERY DAY TAKE ONE CAPSULE BY MOUTH EVERY DAY SOLD: 11/22/2019 [facility] 140 mg/mL 11/22/2019 12:00:00 AM EDT auto-injector 1 INJECT 1ML UNDER THE SKIN MONTHLY INJECT 1ML UNDER THE SKIN MONTHLY SOLD: 03/10/2020 [facility] 140 mg/mL 11/22/2019 12:00:00 AM EDT auto-injector 1 INJECT 1ML UNDER THE SKIN MONTHLY INJECT 1ML UNDER THE SKIN MONTHLY SOLD: 12/27/2019 [facility] 140 mg/mL 11/22/2019 12:00:00 AM EDT auto-injector 1 INJECT 1ML UNDER THE SKIN MONTHLY INJECT 1ML UNDER THE SKIN MONTHLY SOLD: 11/22/2019 [facility] 350 mg 11/20/2019 12:00:00 AM EDT tablet 30 TAKE ONE TABLET BY MOUTH THREE TIMES A DAY NEEDED MAXIMUM DAILY DOSE = 3 TABLETS TAKE ONE TABLET BY MOUTH THREE TIMES A DAY NEEDED MAXIMUM DAILY DOSE = 3 TABLETS SOLD: 11/22/2019 [facility] 5-325 mg 10/12/2019 12:00:00 AM EDT tablet 8 TAKE ONE TABLET BY MOUTH EVERY 6 HOURS NEEDED FOR PAIN/DISCOMFORT, MAXIMUM DAILY DOSE = 4 TAKE ONE TABLET BY MOUTH EVERY 6 HOURS NEEDED FOR PAIN/DISCOMFORT, MAXIMUM DAILY DOSE = 4 SOLD: 10/12/2019 [facility] 60 mg 10/11/2019 12:00:00 AM EDT capsule,delayed release (DR/EC) 30 TAKE ONE CAPSULE BY MOUTH EVERY DAY TAKE ONE CAPSULE BY MOUTH EVERY DAY SOLD: 12/27/2019 [facility] 60 mg 10/11/2019 12:00:00 AM EDT capsule,delayed release (DR/EC) 30 TAKE ONE CAPSULE BY MOUTH EVERY DAY TAKE ONE CAPSULE BY MOUTH EVERY DAY SOLD: 10/11/2019 [facility] 10 mg 09/11/2019 12:00:00 AM EDT tablet 20 TAKE ONE TABLET BY MOUTH EVERY 6 HOURS NEEDED FOR PAIN TAKE ONE TABLET BY MOUTH EVERY 6 HOURS A S NEEDED FOR PAIN SOLD: 09/13/2019 [facility] 100 mg 09/03/2019 12:00:00 AM EDT tablet 60 TAKE ONE TABLET BY MOUTH TWICE A DAY-MORNING AND BEDTIME TAKE ONE TABLET BY MOUTH TWICE A DAY-MOR TERA AND BEDTIME SOLD: 09/13/2019 [facility] 100 mg 09/03/2019 12:00:00 AM EDT tablet 60 TAKE ONE TABLET BY MOUTH TWICE A DAY-MORNING AND BEDTIME TAKE ONE TABLET BY MOUTH TWICE A DAY-MOR TERA AND BEDTIME SOLD: 10/31/2019 [facility] 3-0.03 mg 09/01/2019 12:00:00 AM EDT tablet 84 TAKE ONE TABLET BY MOUTH EVERY DAY FOR CONTRACEPTION TAKE ONE TABLET BY MOUTH EVERY DAY FOR C ONTRACEPTION SOLD: 09/13/2019 [facility] drospirenone 3 MG / Ethinyl Estradiol 0. 03 MG Oral Tablet Nasreen 3-0.03 MG Oral Tablet Nasreen 3-0.03 MG Oral Tablet 09/01/2019 12:00:00 AM EDT 1 {tb l} Oral active Take 1 tablet by mouth daily [facility] 140 mg/mL 09/01/2019 12:00:00 AM EDT auto-injector 1 INJECT 1 ML UNDER THE SKIN ONCE A MONTH INJECT 1 ML UNDER THE SKIN ONCE A MONTH SOLD: 09/13/2019 [facility] 140 mg/mL 09/01/2019 12:00:00 AM EDT auto-injector 1 INJECT 1 ML UNDER THE SKIN ONCE A MONTH INJECT 1 ML UNDER THE SKIN ONCE A MONTH SOLD: 10/31/2019 [facility] Drospirenone-Ethinyl Estradiol 08/31/2019 02:27:26 PM EDT 1 TAB completed [facility] Drospirenone-Ethinyl Estradiol 08/31/2019 02:27:26 PM EDT 1 TAB completed [facility] Drospirenone-Ethinyl Estradiol 08/31/2019 02:27:26 PM EDT 1 TAB completed [facility] Drospirenone-Ethinyl Estradiol 08/31/2019 02:27:26 PM EDT 1 TAB completed [facility] topiramate 100 MG Oral Tablet Topiramate (Topamax) 100 mg tablet Topiramate (Topamax) 100 mg tablet 08/31/2019 01:49:02 PM EDT 300 MG active [facility] topiramate 100 MG Oral Tablet Topiramate (Topamax) 100 mg tablet Topiramate (Topamax) 100 mg tablet 08/31/2019 01:49:02 PM EDT 300 MG active [facility] topiramate 100 MG Oral Tablet Topiramate (Topamax) 100 mg tablet Topiramate (Topamax) 100 mg tablet 08/31/2019 01:49:02 PM EDT 300 MG completed [facility] topiramate 100 MG Oral Tablet Topiramate (Topamax) 100 mg tablet Topiramate (Topamax) 100 mg tablet 08/31/2019 01:49:02 PM EDT 300 MG active [facility] duloxetine 30 MG Delayed Release Oral Capsule Duloxetine Dul oxetine 08/31/2019 01:47:59 PM EDT 60 MG active [facility] duloxetine 30 MG Delayed Release Oral Capsule Duloxetine Dul oxetine 08/31/2019 01:47:59 PM EDT 60 MG completed [facility] duloxetine 30 MG Delayed Release Oral Capsule Duloxetine Dul oxetine 08/31/2019 01:47:59 PM EDT 60 MG active [facility] duloxetine 30 MG Delayed Release Oral Capsule Duloxetine Dul oxetine 08/31/2019 01:47:59 PM EDT 60 MG completed [facility] duloxetine 60 MG Delayed Release Oral Capsule Duloxetine HCL 08/31/2019 12:00:00 AM EDT ORAL active [facility] ([facility]) Acetaminophen 325 MG / Oxycodone Hydroch loride 5 MG Oral Tablet Oxycodone- Acetaminophen (Endocet) 5-325 mg tablet Oxycodone-Acetaminophen (Endocet) 5-325 mg tablet 03/21/2019 10:15:59 AM EST 1 TAB completed [facility] Acetaminophen 325 MG / Oxycodone Hydroch loride 5 MG Oral Tablet Oxycodone- Acetaminophen (Endocet) 5-325 mg tablet Oxycodone-Acetaminophen (Endocet) 5-325 mg tablet 03/21/2019 10:15:59 AM EST 1 TAB completed [facility] Acetaminophen 325 MG / Oxycodone Hydroch loride 5 MG Oral Tablet Oxycodone-Acetaminophen Oxycodone-Acetaminophen 03/21/2019 10:15:59 AM EST 1 TAB active [facility] Acetaminophen 325 MG / Oxycodone Hydroch loride 5 MG Oral Tablet Oxycodone-Acetaminophen Oxycodone-Acetaminophen 03/21/2019 10:15:59 AM EST 1 TAB active [facility] Acetaminophen 325 MG / Oxycodone Hydroch loride 5 MG Oral Tablet Oxycodone- Acetaminophen (Endocet) 5-325 mg tablet Oxycodone-Acetaminophen (Endocet) 5-325 mg tablet 03/21/2019 10:15:59 AM EST 1 TAB completed [facility] Acetaminophen 325 MG / Oxycodone Hydroch loride 5 MG Oral Tablet Oxycodone- Acetaminophen (Endocet) 5-325 mg tablet Oxycodone-Acetaminophen (Endocet) 5-325 mg tablet 03/21/2019 10:15:59 AM EST 1 TAB completed [facility] 5-325 mg 03/21/2019 12:00:00 AM EST tablet 20 TAKE 1 TABLET BY MOUTH EVERY 4 HOURS NEEDED FOR PAIN MAXIMUM DAILY DOSE = 6 TABLETS TAKE 1 TABLET BY MOUTH EVERY 4 HOURS NEEDED FOR PAIN MAXIMUM DAILY DOSE = 6 TABLETS SOLD: 03/21/2019 [facility] Acetaminophen 325 MG Oral Tablet [Tyleno l] Acetaminophen (Tylenol) 325 mg Tablet Acetaminophen (Tylenol) 325 mg Tablet 03/20/2019 11:57:50 AM EST 650 MG active [facility] Ibuprofen 03/20/2019 11:57:50 AM EST 400 MG active [facility] Acetaminophen 325 MG Oral Tablet [Tyleno l] Acetaminophen (Tylenol) 325 mg Tablet Acetaminophen (Tylenol) 325 mg Tablet 03/20/2019 11:57:50 AM EST 650 MG active [facility] Ibuprofen 03/20/2019 11:57:50 AM EST 400 MG active [facility] Ibuprofen (Motrin Ib) 200 mg Capsule 03/20/2019 11:57:50 AM EST 400 MG completed [facility] Ibuprofen 03/20/2019 11:57:50 AM EST 400 MG active [facility] Acetaminophen 325 MG Oral Tablet [Tyleno l] Acetaminophen (Tylenol) 325 mg Tablet Acetaminophen (Tylenol) 325 mg Tablet 03/20/2019 11:57:50 AM EST 650 MG active [facility] Ibuprofen (Motrin Ib) 200 mg Capsule 03/20/2019 11:57:50 AM EST 400 MG completed [facility] Ibuprofen (Motrin Ib) 200 mg Capsule 03/20/2019 11:57:50 AM EST 400 MG completed [facility] Ibuprofen (Motrin Ib) 200 mg Capsule 03/20/2019 11:57:50 AM EST 400 MG completed [facility] Acetaminophen 325 MG Oral Tablet [Tylenol] Acetaminophen 03/20/2019 11:57:50 AM EST 650 MG active [facility] Acetaminophen 325 MG Oral Tablet [Tylenol] Acetaminophen 03/20/2019 11:57:50 AM EST 650 MG active [facility] Acetaminophen 325 MG Oral Tablet [Tylenol] Acetaminophen 03/20/2019 11:57:50 AM EST 650 MG active [facility] Acetaminophen 325 MG Oral Tablet [Tyleno l] Acetaminophen (Tylenol) 325 mg Tablet Acetaminophen (Tylenol) 325 mg Tablet 03/20/2019 11:57:50 AM EST 650 MG active [facility] Ondansetron 4 MG Oral Tablet Ondansetron Hcl Ondansetron Hcl 03/17/2019 01:08:59 PM EST 4 MG completed [facility] Ondansetron 4 MG Oral Tablet Ondansetron Hcl Ondansetron Hcl 03/17/2019 01:08:59 PM EST 4 MG completed [facility] Ondansetron 4 MG Oral Tablet Ondansetron Hcl Ondansetron Hcl 03/17/2019 01:08:59 PM EST 4 MG completed [facility] Ondansetron 4 MG Oral Tablet Ondansetron Hcl Ondansetron Hcl 03/17/2019 01:08:59 PM EST 4 MG completed [facility] Ondansetron 4 MG Oral Tablet Ondansetron Hcl Ondansetron Hcl 03/17/2019 01:08:59 PM EST 4 MG completed [facility] Ondansetron 4 MG Oral Tablet Ondansetron Hcl Ondansetron Hcl 03/17/2019 01:08:59 PM EST 4 MG completed [facility] Ondansetron 4 MG Oral Tablet Ondansetron Hcl Ondansetron Hcl 03/17/2019 01:08:59 PM EST 4 MG completed [facility] 4 mg 03/17/2019 12:00:00 AM EST tablet 20 TAKE ONE TABLET BY MOUTH EVERY 6 HOURS NEEDED FOR NAUSEA AND VOMITING TAKE ONE TABLET BY MOUTH EVERY 6 HOURS NEEDED FOR NAUSEA AND VOMITING SOLD: 03/21/2019 [facility] Norgestrel-Ethinyl Estradiol (Low-Ogestrel (28)) 0.3-30 mg-m cg tablet 03/15/2019 05:27:55 PM EST 1 TAB completed [facility] Norgestrel-Ethinyl Estradiol (Low-Ogestrel (28)) 0.3-30 mg-m cg tablet 03/15/2019 05:27:55 PM EST 1 TAB completed [facility] Norgestrel-Ethinyl Estradiol (Low-Ogestrel (28)) 0.3-30 mg-m cg tablet 03/15/2019 05:27:55 PM EST 1 TAB completed [facility] Norgestrel-Ethinyl Estradiol 03/15/2019 05:27:55 PM EST 1 T AB active [facility] Norgestrel-Ethinyl Estradiol 03/15/2019 05:27:55 PM EST 1 T AB active [facility] Norgestrel-Ethinyl Estradiol (Low-Ogestrel (28)) 0.3-30 mg-m cg tablet 03/15/2019 05:27:55 PM EST 1 TAB completed [facility] Norgestrel-Ethinyl Estradiol 03/15/2019 05:27:55 PM EST 1 T AB active [facility] topiramate 50 MG Oral Tablet Topiramate Topiramate 03/15/2019 03: 47:38 PM EST 150 MG completed [facility] topiramate 50 MG Oral Tablet Topiramate Topiramate 03/15/2019 03: 47:38 PM EST 150 MG completed [facility] topiramate 50 MG Oral Tablet Topiramate Topiramate 03/15/2019 03: 47:38 PM EST 150 MG completed [facility] Erenumab-Aooe ([employer] Autoinjector) 70 MG/1 ML AUTO.INJCT 03/15/2019 03:46:50 PM EST 140 MG active [facility] Erenumab-Aooe 03/15/2019 03:46:50 PM EST 140 MG co mpleted [facility] Erenumab-Aooe ([employer]ig Autoinjector) 70 MG/1 ML AUTO.INJCT 03/15/2019 03:46:50 PM EST 140 MG completed [facility] Erenumab-Aooe 03/15/2019 03:46:50 PM EST 140 MG co mpleted [facility] Erenumab-Aooe ([employer] Autoinjector) 70 MG/1 ML AUTO.INJCT 03/15/2019 03:46:50 PM EST 140 MG active [facility] Erenumab-Aooe 03/15/2019 03:46:50 PM EST 140 MG co mpleted [facility] Erenumab-Aooe ([employer]ig Autoinjector) 70 MG/1 ML AUTO.INJCT 03/15/2019 03:46:50 PM EST 140 MG active [facility] 140 mg/mL 03/10/2019 12:00:00 AM EST auto-injector 1 INJECT 1ML ONCE MONTHLY INJECT 1ML ONCE MONTHLY SOLD: 08/11/2019 [facility] 140 mg/mL 03/10/2019 12:00:00 AM EST auto-injector 1 INJECT 1ML ONCE MONTHLY INJECT 1ML ONCE MONTHLY SOLD: 04/20/2019 [facility] 140 mg/mL 03/10/2019 12:00:00 AM EST auto-injector 1 INJECT 1ML ONCE MONTHLY INJECT 1ML ONCE MONTHLY SOLD: 03/10/2019 [facility] 0.3-30 mg-mcg 03/07/2019 12:00:00 AM EST tablet 28 TAKE ONE TABLET BY MOUTH EVERY DAY TAKE ONE TABLET BY MOUTH EVERY DAY SOLD: 04/08/2019 [facility] 0.3-30 mg-mcg 03/07/2019 12:00:00 AM EST tablet 28 TAKE ONE TABLET BY MOUTH EVERY DAY TAKE ONE TABLET BY MOUTH EVERY DAY SOLD: 03/09/2019 [facility] 30 mg 03/03/2019 12:00:00 AM EST capsule,delayed release (DR/EC) 30 TAKE ONE CAPSULE BY MOUTH EVERY DAY TAKE ONE CAPSULE BY MOUTH EVERY DAY SOLD: 03/09/2019 [facility] 30 mg 03/03/2019 12:00:00 AM EST capsule,delayed release (DR/EC) 30 TAKE ONE CAPSULE BY MOUTH EVERY DAY TAKE ONE CAPSULE BY MOUTH EVERY DAY SOLD: 04/20/2019 [facility] 30 mg 03/03/2019 12:00:00 AM EST capsule,delayed release (DR/EC) 30 TAKE ONE CAPSULE BY MOUTH EVERY DAY TAKE ONE CAPSULE BY MOUTH EVERY DAY SOLD: 07/02/2019 [facility] 30 mg 03/03/2019 12:00:00 AM EST capsule,delayed release (DR/EC) 30 TAKE ONE CAPSULE BY MOUTH EVERY DAY TAKE ONE CAPSULE BY MOUTH EVERY DAY SOLD: 08/11/2019 [facility] Aimovig Aimovig 03/02/2019 12:00:00 AM EST active [facility] ([facility]) 30 mg 02/03/2019 12:00:00 AM EST capsule,delayed release (DR/EC) 30 TAKE ONE CAPSULE BY MOUTH EVERY DAY TAKE ONE CAPSULE BY MOUTH EVERY DAY SOLD: 02/07/2019 [facility] 70 mg/mL 10/19/2018 12:00:00 AM EDT auto-injector 1 INJECT ONE PEN UNDER THE SKIN ONCE A MONTH INJECT ONE PEN UNDER THE SKIN ONCE A MONTH SOLD: 02/10/2019 [facility] Ibuprofen 600 MG Oral Tablet Ibuprofen 10/18/2018 02:29:29 PM EDT 600 MG completed [facility] Ibuprofen 600 MG Oral Tablet Ibuprofen 10/18/2018 02:29:29 PM EDT 600 MG completed [facility] Ibuprofen 600 MG Oral Tablet Ibuprofen 10/18/2018 02:29:29 PM EDT 600 MG completed [facility] Ibuprofen 600 MG Oral Tablet Ibuprofen 10/18/2018 02:29:29 PM EDT 600 MG completed [facility] Ibuprofen 600 MG Oral Tablet Ibuprofen 10/18/2018 02:29:29 PM EDT 600 MG completed [facility] Ibuprofen 600 MG Oral Tablet Ibuprofen 10/18/2018 02:29:29 PM EDT 600 MG completed [facility] Ibuprofen 600 MG Oral Tablet Ibuprofen 10/18/2018 02:29:29 PM EDT 600 MG completed [facility] Metronidazole 500 MG Oral Tablet Metronidazole 10/18/2018 02:28:20 PM EDT 500 MG completed [facility] Metronidazole 500 MG Oral Tablet Metronidazole 10/18/2018 02:28:20 PM EDT 500 MG completed [facility] Metronidazole 500 MG Oral Tablet Metronidazole 10/18/2018 02:28:20 PM EDT 500 MG completed [facility] Metronidazole 500 MG Oral Tablet Metronidazole 10/18/2018 02:28:20 PM EDT 500 MG completed [facility] Metronidazole 500 MG Oral Tablet Metronidazole 10/18/2018 02:28:20 PM EDT 500 MG completed [facility] Metronidazole 500 MG Oral Tablet Metronidazole 10/18/2018 02:28:20 PM EDT 500 MG completed [facility] Metronidazole 500 MG Oral Tablet Metronidazole 10/18/2018 02:28:20 PM EDT 500 MG completed [facility] duloxetine 30 MG Delayed Release Oral Capsule Duloxetine Dul oxetine 10/12/2018 09:48:09 AM EDT 30 MG completed [facility] duloxetine 30 MG Delayed Release Oral Capsule Duloxetine Dul oxetine 10/12/2018 09:48:09 AM EDT 30 MG completed [facility] duloxetine 30 MG Delayed Release Oral Capsule Duloxetine Dul oxetine 10/12/2018 09:48:09 AM EDT 30 MG completed [facility] duloxetine 30 MG Delayed Release Oral Capsule Duloxetine Dul oxetine 10/12/2018 09:48:09 AM EDT 30 MG completed [facility] topiramate 50 MG Oral Tablet Topiramate Topiramate 10/12/2018 09: 44:22 AM EDT 200 MG completed [facility] topiramate 50 MG Oral Tablet Topiramate (Topamax) 50 m g tablet Topiramate (Topamax) 50 mg tablet 10/12/2018 09:44:22 AM EDT 200 MG completed [facility] topiramate 50 MG Oral Tablet Topiramate Topiramate 10/12/2018 09: 44:22 AM EDT 200 MG completed [facility] topiramate 50 MG Oral Tablet Topiramate (Topamax) 50 m g tablet Topiramate (Topamax) 50 mg tablet 10/12/2018 09:44:22 AM EDT 200 MG completed [facility] topiramate 50 MG Oral Tablet Topiramate (Topamax) 50 m g tablet Topiramate (Topamax) 50 mg tablet 10/12/2018 09:44:22 AM EDT 200 MG completed [facility] topiramate 50 MG Oral Tablet Topiramate Topiramate 10/12/2018 09: 44:22 AM EDT 200 MG completed [facility] topiramate 50 MG Oral Tablet Topiramate (Topamax) 50 m g tablet Topiramate (Topamax) 50 mg tablet 10/12/2018 09:44:22 AM EDT 200 MG completed [facility] 100 mg 10/03/2018 12:00:00 AM EDT tablet 60 TAKE ONE TABLET BY MOUTH TWICE A DAY, 1 IN THE MORNING AND 1 AT BEDTIME TAKE ONE TABLET BY MOUTH TWICE A DAY, 1 IN THE MORNING AND 1 AT BEDTIME SOLD: 07/02/2019 [facility] 100 mg 10/03/2018 12:00:00 AM EDT tablet 180 TAKE ONE TABLET BY MOUTH TWICE A DAY, 1 IN THE MORNING AND 1 AT BEDTIME TAKE ONE TABLET BY MOUTH TWICE A DAY, 1 IN THE MORNING AND 1 AT BEDTIME SOLD: 04/20/2019 [facility] 100 mg 10/03/2018 12:00:00 AM EDT tablet 60 TAKE ONE TABLET BY MOUTH TWICE A DAY, 1 IN THE MORNING AND 1 AT BEDTIME TAKE ONE TABLET BY MOUTH TWICE A DAY, 1 IN THE MORNING AND 1 AT BEDTIME SOLD: 08/11/2019 [facility] Ibuprofen 600 MG Oral Tablet Ibuprofen 05/26/2018 11:06:32 AM EDT 600 MG completed [facility] Ibuprofen 600 MG Oral Tablet Ibuprofen 05/26/2018 11:06:32 AM EDT 600 MG completed [facility] Ibuprofen 600 MG Oral Tablet Ibuprofen 05/26/2018 11:06:32 AM EDT 600 MG completed [facility] Ibuprofen 600 MG Oral Tablet Ibuprofen 05/26/2018 11:06:32 AM EDT 600 MG completed [facility] Ibuprofen 600 MG Oral Tablet Ibuprofen 05/26/2018 11:06:32 AM EDT 600 MG completed [facility] Ibuprofen 600 MG Oral Tablet Ibuprofen 05/26/2018 11:06:32 AM EDT 600 MG completed [facility] Ibuprofen 600 MG Oral Tablet Ibuprofen 05/26/2018 11:06:32 AM EDT 600 MG completed [facility] Erenumab-Aooe 04/06/2018 02:15:00 PM EST [facility] Erenumab-Aooe (Aimovig Autoinjector) 70 MG/1 ML AUTO.INJCT 04/06/2018 02:15:00 PM EST 70 MG completed [facility] Erenumab-Aooe (Aimovig Autoinjector) 70 MG/1 ML AUTO.INJCT 04/06/2018 02:15:00 PM EST 70 MG completed [facility] Erenumab-Aooe (Aimovig Autoinjector) 70 MG/1 ML AUTO.INJCT 04/06/2018 02:15:00 PM EST 70 MG completed [facility] Erenumab-Aooe 04/06/2018 02:15:00 PM EST [facility] Erenumab-Aooe 04/06/2018 02:15:00 PM EST 70 MG com [facility] Erenumab-Aooe (Aimovig Autoinjector) 70 MG/1 ML AUTO.INJCT 04/06/2018 02:15:00 PM EST 70 MG completed [facility] Insurance Providers Payer name Policy type / Coverage type Policy ID Covered constitution party ID Covered constitution party's relationship to mayes Policy Mayes Plan Information [employer] [place] [employer] PPO 302/307 [id number] SP [id number] P [facility] [id number] SP [id number] [facility] [id number] Self [id number] EXCELLUS H [id number] Self [id number] MVP I [id number] Self [id number] [place] P[place] 302/307 [id number] SP [id number] EXCELLUS H [id number] Self [id number] [place] 306/806 [id number] SP [id number] EXCELLUS H [id number] Self [id number] EXCELLUS BCBS B [id number] S [id number] [id number] MVP HEALTH CARE O [id number] S [id number] MVP HEALTH CARE HEA [id number] S [id number] EXCELLUS BLUE [place]OSS BLUE [place] HEA [id number] S [id number] MVP [id number] SP [id number] [place] 306/806 [id number] SP [id number] [place] 306/806 [id number] SP [id number] EXCELLUS BCBS B [id number] S [id number] [place] 306/806 [id number] SP [id number] BS [place] Trad/[place] Commercial [id number] Family Dependen t [id number] BS [place] Trad/[place] Medigap Part B [id number] Self [id number] BS [place] Trad/[place] Medigap Part B [id number] Family Depe ndent [id number] BS [employer] Commercial [id number] Self [id number] EXCELLUS BLUE CROSS BLUE SHIELD HEA [id number] S [id number] EXCELLUS BLUE [employer] BLUE [place]IELD HEA [id number] S [id number] Excellus Commercial Commercial [id number] Self [id number] BS [employer] Commercial [id number] Self [id number] [place] HMO/PPO/POS [id number] EXCELLUS BCBS [id number] [place] YNS [id number] EXCELLUS BCBS PI PI BS Freda Trad/MX Commercial [id number] Self [id number] [place] 306/806 [id number] SP [id number] BCBS [place] PPO 302/307 [id number] FA2 [id number] EXCELLUS BCBS B [id number] S [id number] [id number] EXCELLUS BCBS B [id number] C [id number] [id number] EXCELLUS BCBS B [id number] C [id number] SPECIAL FUNDS CONSERVATION-DEW [id number] SP [id number] [place] PPO 302/307 [id number] FA2 [id number] [facility] [id number] [employer] [id number] SP [id number] OTHER WORKERS COMPENSATION [id number] SP [id number] Problems, Conditions, and Diagnoses Code Display Name Description Problem Type Effective Dates Data Source(s) G43.709 Chronic migraine without aur a, not intractable, without status migrainosus Chronic migraine without aura, not intra ctable, without status migrainosus Diagnosis 11/14/2019 11:52:57 AM [facility] Surgeries/Procedures Procedure Description Date Indications Data Source(s) Ultrasonography of abdomen (procedure) 03/15/2019 07:0 1:[address] [facility] Ultrasonography of abdomen (procedure) 03/15/2019 07:0 1:[address] [facility] Ultrasonography of abdomen (procedure) 03/15/2019 07:0 1:[address] [facility] Ultrasonography of abdomen (procedure) 03/15/2019 07:0 1:[address] [facility] Ultrasonography of abdomen (procedure) 03/15/2019 07:0 1:[address] [facility] Ultrasonography of abdomen (procedure) 03/15/2019 07:0 1:[address] [facility] Ultrasonography of abdomen (procedure) 03/15/2019 07:0 1:[address]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 Neurological: Normal gait, Normal speech, Normal tone and Sensation intact Psych/Mental Status: normal affect and normal mood Assessment/Plan Prophylactic measures DVT/VTE Prophylactic:: Not indicated A P Free Text/Narrative :: 28 yo woman seen in the ER on 03/15/2019 and 03/17/2019, diagnosed with gallbladder dyskinesia after HIDA scan, scheduled for surgery clinic visit tomorrow, but now presents to the ED for the third time with severe abdominal pain since last night at midnight, not improving. Decreased po intake due to chronic nausea. -Given that this is her thid ED visit, will admit for pain control and schedule for laparoscopic choelcystectomy. -I discussed that the risks of her surgery in acute setting increases for bile duct injury, bleeding, infection, injury to other organs. However, she was adamant in getting this sooner than later understanding these risks. Further, I discussed this may not improve her pain if this is not related, she understands this as well. Dictated by: <Electronically signed by Golden Arboleda > Golden Arboleda 03/20/19 1512 Golden Arboleda SIGNATURE DA Report Cosigners: D: ANJANA 03/20/19 1505 T: [id number] 03/20/19 1505 CC: Name Value Range Interpretation Code Description Data Mirna rce(s) Supporting Document(s) ID Date Data Source [id number] 03/20/2019 11:51:00 AM EST [facility] ED Physician Documentation NAME: PETROS HERRING : 1990 AGE: 28 MR#: [id number] SERVICE DATE: 03/20/[address]: Anna De Guzman MD PRIMARY CARE DR: Rebecca Hanks RNC ANP ROOM#: [id number] HPI (Adult, General) General Chief Complaint: GI Stated Complaint: ABDOMINAL PAIN,NAUSEA Resident LT, travel outisde home, exposure to hot tubs:: No Time Seen by Provider: 03/20/19 11:50 Source: patient Exam Limitations: no limitations History of Present Illness Narrative: 28 yo woman seen in the ER on 03/15/2019 and 03/17/2019, diagnosed with gallbladder dyskinesia after HIDA scan, scheduled for surgery clinic visit tomorrow, presents now due to severe abdominal pain since last night at midnight, not improving. She has decreased po intake due to chronic nausea. No relief from Tylenol. Allergies/Home Meds Allergies Allergy/AdvReac Type Severity Reaction Status Date / Time Sulfa (Sulfonamide Allergy Mild Hives Verified 03/20/19 17:37 Antibiotics) tramadol Allergy Mild i tching Verified 03/20/19 17:37 Home Medications Medication Instructions Recorded Confirmed Last Taken Type duloxetine 30 mg capsule,delayed 30 mg PO QDAY 10/12/18 03/20/19 03/20/19 History release Erenumab-Aooe [Aimovig 140 mg SUBCUT Q30D #1 box 03/15/19 03/20/19 03/19/19 History Autoinjector] Low-Ogestrel (28) 1 tab PO DAILY 03/15/19 03/20/19 03/20/19 History topiramate 50 mg tablet 150 mg PO DAILY tab 03/15/19 03/20/19 03/20/19 History acetaminophen [Tylenol] 650 mg PO PRN PRN 03/20/19 03/20/19 03/20/19 History ibuprofen [Motrin IB] 400 mg PO PRN PRN 03/20/19 03/20/19 03/20/19 History PMH (from Triage) Patient Medical History PMH Reviewed/Updated as Needed: Yes PMH/PSH from Triage: Medical History (Updated 03/17/19 @ 13:14 by Hardy Rosario MD) Anxiety (Medical) migranes (Medical) Surgical History (Updated 10/21/18 @ 13:19 by Debbi Pinto) History of - surgery (Surgical 05/26/18) failed D C D C 10/13/18 History of - surgery (Surgical 01/20/17) LEEP [place] teeth extraction (Surgical) Female History : No Hx Drug Resistant Infections Hx MRSA: (Methicillin- resistant Staphylococcus aureus): No Hx VRE (Vancomycin-resistant enterococci): No Hx C.Diff: No Hx CRKP: No Hx Other Resistant Infection?: No Isolation: Standard precautions Hx Recent Travel Out of the country within 10 days (where): No Hx Fever: No Hx Fever with a rash?: No Social History Does patient have suicidal/homicidal thoughts or ideation?: No Are you in a relationship with/Does anyone hit you, yell/swear at you, steal from you?: No Substance Use Hx Alcohol Use: No Hx Substance Use: No Hx Substance Use Treatment: No Tobacco Use Hx Chewing Tobacco Use: No Vaccination History Hx/Date of Tetanus, Diphtheria Vaccination: No Hx/Date of Influenza Vaccination: Yes Hx/Date of Pneumococcal Vaccination: No ROS Review of Systems Constitutional: Denies fever and chills ENT: Denies nasal congestion Respiratory: Denies cough Cardiovascular: Denies chest pain Gastrointestinal: Reports nausea, vomiting and abdominal pain; Denies diarrhea Genitourinary- Female: Denies dysuria and frequency Musculoskeletal: Denies muscle pain and joint pain Skin/Breasts: Denies rash, lesions and hives Neurologic: Denies weakness and numbness Endocrine: Reports Loss of appetite Hematological/Lymphatic: Denies easy bleeding and easy bruising Allergic/Immunologic: Denies rash Physical Exam General Physical Exam Narrative: wd woman, awake and alert, appears to be in pain Limitations: no limitations General appearance: alert and in distress Head Head exam: Present atraumatic and normocephalic Eye Eye exam: Present normal apperance and EOMI; Absent scleral icterus ENT ENT exam: Present normal exam and mucous membranes dry Neck Neck exam: Present normal inspection and full ROM Respiratory Respiratory exam: Present normal lung sounds bilaterally; Absent respiratory distress Cardiovascular Cardiovascular Exam: Present regular rate and normal rhythm GI/Abdominal GI/Abdominal exam: Present Abd soft, bowel sounds present all quadrents and tenderness; Absent guarding and rebound Extremities Exam Extremities exam: Present normal inspection and full ROM; Absent tenderness Back Exam Back exam: Present normal inspection Neurological Exam Neurological exam: Present alert; Absent motor sensory deficit Psychiatric Psychiatric exam: Present normal affect and normal mood Skin Skin exam: Present warm, dry, intact and normal color Vital Signs Vital Signs: Vital Signs 03/20/19 11:54 03/20/19 16:11 Temperature 99.0 F 97.7 F Pulse Rate 68 62 Respiratory Rate 16 16 Blood Pressure 115/72 103/72 O2 Sat by Pulse Oximetry 98 97 MDM (comprehensive) Medical Decision Making Free Text/Narative:: The patient was evaluated for persistent symptoms related to biliary dyskinesia. She was treated with Dilaudid and Zofran. Dr. Arboleda attended in the ER and will admit the patient. Plan Plan Plan: Admit to Surgery service Plan of care: Plan of care discussed with patient and or family, Patient encouraged to ask questionsabout plan and Patient agrees with plan of care Discharge Plan Admission/Discharge Dx Primary (Admit) Diagnosis: Biliary Colic ED Provider: Anna De Guzman ED Status: Discharged Time Seen by Provider: 03/20/19 11:50 Triaged At: 03/20/19 11:38 Condition Condition: Stable Discharge Detail Disposition: Admit to Critical [facility] Medications Medication reconciliation performed by provider at discharge: Yes *Discharge Patient* Discharge Orders: Provider hand off (NOW); Ordered 03/20/19 Ordered By: Anna De Guzman Discharge Date/Time: 03/20/19 16:18 Interventions Interventions: ED Admission/Handoff Last Done: 03/20/19 16:17 ED GI Gastrointestinal Last Done: 03/20/19 11:55 Report Signers: <Electronically signed by Anna De Guzman MD> Anna De Guzman MD 03/20/19 1853 Anna De Guzman MD SIGNATURE DA Report Cosigners: Mauricio: COREY 03/20/19 1150 T: [id number] 03/20/19 115 CC: Rebecca Ocasio RNC ANP [place] Name Value Range Interpretation Code Description Data Mirna rce(s) Supporting Document(s) ID Date Data Source [id number] 03/17/2019 12:54:00 PM EST [facility] Name Value Range Interpretation Code Description Data Mirna rce(s) Supporting Document(s) Urea nitrogen [Mass/volume] in Serum or Plasma 10 mg/dL 9-23 N [facility] Sodium [Moles/volume] in Serum or Plasma 141 mmol/L 132-146 N [facility] Potassium [Moles/volume] in Serum or Plasma 3.9 mmol/L 3.5-5.5 N [facility] Chloride [Moles/volume] in Serum or Plasma 112 mmol/L 99-109 Above high normal [facility] Carbon dioxide, total [Moles/volume] in Serum or Plasma 23 mmol/L 20 -31 N [facility] Anion gap in Serum or Plasma 10 mmol/L 8-16 N [facility] Glucose [Mass/volume] in Serum or Plasma 96 mg/dL 74-106 N [facility] Creatinine 0.8 mg/dL 0.5-1.1 N [facility] Glomerular filtration rate/1.73 sq M.pre dicted [Volume Rate/Area] in Serum or Plasma Greater Than 60 ABOVE 60 [facility] Alanine aminotransferase [Enzymatic acti vity/volume] in Serum or Plasma by With P-5'-P 21 U/L 10-49 N [facility] ital Aspartate aminotransferase [Enzymatic ac tivity/volume] in Serum or Plasma by With P-5'-P 21 U/L 0-33 N [facility] pital Alkaline phosphatase [Enzymatic activity/volume] in Serum or Plasma 94 U/L 45-129 N [facility] Calcium [Mass/volume] in Serum or Plasma 8.8 mg/dL 8.5-10.1 N [facility] Bilirubin.total [Mass/volume] in Serum or Plasma 0.3 mg/dL 0.3-1.2 N [facility] Albumin [Mass/volume] in Serum or Plasma by Bromocresol purple (BCP) dye binding method 3.8 g/dL 3.2-4.8 [facility] ital Protein [Mass/volume] in Serum or Plasma 7.6 g/dL 5.7-8.2 N [facility] ID Date Data Source [id number] 03/17/2019 12:54:[address] [facility] Name Value Range Interpretation Code Description Data Mirna rce(s) Supporting Document(s) Amylase [Enzymatic activity/volume] in Serum or Plasma 52 U/L 30- 118 N [facility] ID Date Data Source [id number] 03/17/2019 12:54:[address] [facility] Name Value Range Interpretation Code Description Data Mirna rce(s) Supporting Document(s) Lipase [Enzymatic activity/volume] in Serum or Plasma 126 U/L 73-3 93 N [facility] ID Date Data Source [id number] 03/17/2019 12:31:[address] [facility] Name Value Range Interpretation Code Description Data Mirna rce(s) Supporting Document(s) Leukocytes [#/volume] in Blood by Automated count 6.9 10*3/uL 4.45-10 .71 [facility] Erythrocytes [#/volume] in Blood by Automated count 4.34 10*6/uL 4.20 -5.40 [facility] Hemoglobin [Moles/volume] in Blood 13.6 g/dL 10.7-15.4 [facility] Hematocrit [Volume Fraction] of Blood by Automated count 41.6 % 3 7-47 N [facility] Erythrocyte mean corpuscular volume [Ent itic volume] in Cord blood by Automated count 95.9 fL 80-96 N [facility] ital Erythrocyte mean corpuscular hemoglobin [Entitic mass] by Automated count 31.3 pg 27-31 Above high normal [facility] spital Erythrocyte mean corpuscular hemoglobin concentration [Mass/volume] in Cord blood 32.7 g/dL 33-37 Below low normal [facility] Erythrocyte distribution width [Entitic volume] by Automated count 12 % 11-15 N [facility] Platelets [#/volume] in Blood by Automated count 224 10*3/uL 130-472 N [facility] Platelet mean volume [Entitic volume] in Blood 9.1 fL 9.1-13.1 [facility] Neutrophils/100 leukocytes in Blood by Automated count 62.8 % 41- 77 N [facility] Neutrophils [#/volume] in Blood by Automated count 4.3 U 1.7-7.6 N [facility] Lymphocytes/100 leukocytes in Blood by Automated count 26.2 % 14- 46 N [facility] Lymphocytes [#/volume] in Blood by Automated count 1.8 U 0.6-4.6 N [facility] Monocytes/100 leukocytes in Blood by Automated count 9.3 % 4-12 N [facility] Monocytes [#/volume] in Blood by Automated count 0.6 U 0.2-1.2 N [facility] Eosinophils/100 leukocytes in Blood by Automated count 1.3 % 0-7 N [facility] Eosinophils [#/volume] in Blood by Automated count 0.1 U 0.0-0.5 N [facility] Basophils/100 leukocytes in Blood by Automated count 0.3 % 0.4-1.3 Below low normal [facility] Basophils [#/volume] in Blood by Automated count 0.0 U 0.0-0.2 N [facility] NUCLEATED RED BLOOD CELL 0 % [facility] NUCLEATED RED BLOOD CELL# 0 U [facility] Immature granulocytes [Presence] in Blood by Automated count 0-2 N [facility] Immature granulocytes [#/volume] in Blood by Automated count 0.0 U 0-0.1 N [facility] Manual Differential panel - Blood NO [facility] ID Date Data Source [id number] 03/17/2019 12:23:00 PM EST [facility] ([facility]) Name Value Range Interpretation Code Description Data Mirna rce(s) Supporting Document(s) Amylase [Enzymatic activity/volume] in Serum or Plasma 52 U/L 30- 118 [facility] ([facility]) [facility] Lipoprotein lipase [Enzymatic activity/volume] in Serum or P lasma 126 U/L 73-393 [facility] ([facility]) [facility] ID Date Data Source [id number] 03/17/2019 12:23:00 PM EST [facility] ([facility]) Name Value Range Interpretation Code Description Data Mirna rce(s) Supporting Document(s) Urea nitrogen [Mass/volume] in Serum or Plasma 10 mg/dL 9-23 [facility] ([facility]) S[facility] Potassium [Moles/volume] in Serum or Plasma 3.9 mmol/L 3.5-5.5 [facility] ([facility]) [facility] Sodium [Moles/volume] in Serum or Plasma 141 mmol/L 132-146 [facility] Glucose [Mass/volume] in Serum or Plasma 96 mg/dL 74-106 [facility] Anion gap in Serum or Plasma 10 mmol/L 8-16 M [facility] ([facility]) S[facility] Carbon dioxide, total [Moles/volume] in Serum or Plasma 23 mmol/L 20 -31 [facility] Chloride [Moles/volume] in Serum or Plasma 112 mmol/L 99-109 [facility] Glomerular filtration rate/1.73 sq M.pre dicted [Volume Rate/Area] in Serum or Plasma Laboratory test result [facility] Alanine aminotransferase [Enzymatic acti vity/volume] in Serum or Plasma by With P-5'-P 21 U/L 10-49 [facility] ([facility]) SIDE [facility]IN Creatinine 0.8 mg/dL 0.5-1.1 [facility] Calcium [Mass/volume] in Serum or Plasma 8.8 mg/dL 8.5-10.1 [facility] Aspartate aminotransferase [Enzymatic ac tivity/volume] in Serum or Plasma by With P-5'-P 21 U/L 0-33 [facility] SIDE PAIN Alkaline phosphatase [Enzymatic activity/volume] in Serum or Plasma 94 U/L 45-129 [facility] Albumin [Mass/volume] in Serum or Plasma by Bromocresol purple (BCP) dye binding method 3.8 g/dL 3.2-4.8 [facility] ([facility]) SIDE PAIN Bilirubin.total [Mass/volume] in Serum or Plasma 0.3 mg/dL 0.3-1.2 [facility] Protein [Mass/volume] in Serum or Plasma 7.6 g/dL 5.7-8.2 [facility] ([facility]) S[facility] ID Date Data Source [id number] 03/17/2019 12:23:00 PM EST [facility] ([facility]) Name Value Range Interpretation Code Description Data Mirna rce(s) Supporting Document(s) Leukocytes [#/volume] in Blood by Automated count 6.9 10*3/uL 4.45-10 .71 [facility] ([facility]) SIDE [facility]IN Hemoglobin [Moles/volume] in Blood 13.6 g/dL 10.7-15.4 [facility] Erythrocytes [#/volume] in Blood by Automated count 4.34 10*6/uL 4.20 -5.40 [facility] ([facility] S[facility] Erythrocyte mean corpuscular volume [Ent itic volume] in Cord blood by Automated count 95.9 fL 80-96 [facility] ([facility]) SIDE PAIN Hematocrit [Volume Fraction] of Blood by Automated count 41.6 % 3 7-47 [facility] S[facility] Erythrocyte mean corpuscular hemoglobin concentration [Mass/volume] in Cord blood 32.7 g/dL 33-37 [facility] SIDE PAIN Erythrocyte mean corpuscular hemoglobin [Entitic mass] by Automated count 31.3 pg 27-31 [facility] SIDE PAIN Platelets [#/volume] in Blood by Automated count 224 10*3/uL 130-472 [facility] S[facility]IN Erythrocyte distribution width [Entitic volume] by Automated count 12 % 11-15 [facility] ([facility]) SIDE PAIN Platelet mean volume [Entitic volume] in Blood 9.1 fL 9.1-13.1 [facility] S[facility] Neutrophils/100 leukocytes in Blood by Automated count 62.8 % 41- 77 [facility] ([facility]) SIDE PAIN Lymphocytes/100 leukocytes in Blood by Automated count 26.2 % 14- 46 [facility] ([facility]) SIDE PAIN Neutrophils [#/volume] in Blood by Automated count 4.3 U 1.7-7.6 [facility] ([facility]) SIDE PAIN Lymphocytes [#/volume] in Blood by Automated count 1.8 U 0.6-4.6 [facility] ([facility]) SIDE PAIN Monocytes/100 leukocytes in Blood by Automated count 9.3 % 4-12 [facility] ([facility]) SIDE PAIN Monocytes [#/volume] in Blood by Automated count 0.6 U 0.2-1.2 [facility] ([facility]) SIDE PAIN Eosinophils/100 leukocytes in Blood by Automated count 1.3 % 0-7 [facility] ([facility]) SIDE PAIN Eosinophils [#/volume] in Blood by Automated count 0.1 U 0.0-0.5 [facility] ([facility]) SIDE PAIN Basophils/100 leukocytes in Blood by Automated count 0.3 % 0.4-1 .3 [facility] ([facility]) SIDE PAIN Basophils [#/volume] in Blood by Automated count 0.0 U 0.0-0.2 [facility] ([facility]) SIDE PAIN Laboratory test finding (navigational concept) 0 U [facility] ([facility]) SIDE PAIN Nucleated Red Blood Cell 0 % [facility] ([facility]) SIDE PAIN Immature granulocytes [Presence] in Blood by Automated count 0.1 0-2 [facility] ([facility]) SIDE PAIN Immature granulocytes [#/volume] in Blood by Automated count 0.0 U 0-0.1 [facility] ([facility]) SIDE [facility] Manual Differential panel - Blood Laboratory test result [facility] ([facility]) S[facility] ID Date Data Source [id number] 03/17/2019 12:23:00 PM [facility] [address], [place] [id number] [phone] NAME SEX PT STATUS ACCOUNT NUMBER PETROS HERRING PRE REF [id number] ORDERING PHYSICIAN LOCATION MEDICAL RECORD NO. Reynold GALAVIZ [id number] ATTENDING PHYSICIAN DATE OF DATE OF EXAM/TIME Rebecca Hanks, RNC 1990 03/17/19899 TYPE / EXAM NM HIDA Scan W/Ejection Fract REASON FOR EXAM RIGHT ABDOMINAL PAIN, DIARRHEA, NEG GB US COMPARISON: None TECHNIQUE: 5.33mCi IV technetium 99m Choletec. 1.3mcg IV Kinevac FINDINGS: There is activity in the liver, common bile duct, gallbladder, and small bowel. The gallbladder ejection fraction is 20%, delayed IMPRESSION: Gallbladder ejection fraction of 20%, delayed. Findings consistent with gallbladder dyskinesia. Reported By Marquis Fabian MD on 03/17/19 1223 Signed By Marquis Fabian MD on 03/17/19 1224 Date Time CC: Marquis Fabian MD; Stone Agarwal MD; Rebecca Ocasio RNC MINA Hanks Techn: GRAMR Trans Dt/Tm: Trans by: DT Prt Dt/Tm: : Total DLP = 0.00 mGy-cm : Total Radiation Dose = 0.0000 mSv Lifetime Dose: 0 mSv Name Value Range Interpretation Code Description Data Mirna rce(s) Supporting Document(s) ID Date Data Source [id number] 03/17/2019 12:15:[address] [facility] ED Physician Documentation NAME: PETROS HERRING : 1990 AGE: 28 MR#: [id number] SERVICE DATE: 03/17/[address]: Hardy Rosario MD PRIMARY CARE DR: Rebecca Hanks RNC ANP ROOM#: HPI (Adult, General) General Chief Complaint: GI Stated Complaint: SIDE PAIN Resident [facility], travel outisde home, exposure to hot tubs:: No Time Seen by Provider: 03/17/19 12:08 Source: patient Exam Limitations: no limitations History of Present Illness Narrative: RUQ pain and nausea X 4 days; denies vomiting, fever or chills; calixto radiates to the back; patient seen in the ED last night and RUQ US was negative; patient has a HIDA scan this morning; and was told to come to the ED because of her ongoing pain History of Present Illness Timing/Duration: constant Place Injury/Event Occurred (if applicable): home Past Medical History Past Medical History: Nursing Past Medical History Has Been Reviewed Allergies/Home Meds Allergies Allergy/AdvReac Type Severity Reaction St atus Date / Time Sulfa (Sulfonamide Allergy Mild Hives Verified 03/15/19 17:27 Antibiotics) tramadol Allergy Mild itching Verified 03/15/19 17:27 Home Medications Medication Instructions Recorded Confirmed Last Taken Type duloxetine 30 mg capsule,delayed 30 mg PO QDAY 10/12/18 03/17/19 03/15/19 History release Erenumab-Aooe [Aimovig 140 mg SUBCUT Q30D #1 box 03/15/19 03/17/19 02/19/19 History Autoinjector] Low-Ogestrel (28) 1 tab PO DAILY 03/15/19 03/17/19 03/15/19 History topiramate 50 mg tablet 150 mg PO DAILY tab 03/15/19 03/17/19 03/15/19 History ondansetron HCl 4 mg PO Q6HR PRN #20 tab 03/17/19 Unknown Rx PMH (from Triage) Patient Medical History PMH Reviewed/Updated as Needed: Yes PMH/PSH from Triage: Medical History (Updated 06/07/18 @ 17:50 by Miriam Encinas NP) Anxiety (Medical) migranes (Medical) Surgical History (Updated 10/21/18 @ 13:19 by Debbi Pinto) History of - surgery (Surgical 05/26/18) failed D C D C 10/13/18 History of - surgery (Surgical 01/20/17) LEEP [place] teeth extraction (Surgical) Female History : No Hx Drug Resistant Infections Hx MRSA: (Methicillin-resistant Staphylococcus aureus): No Hx VRE (Vancomycin-resistant enterococci): No Hx C.Diff: No Hx CRKP: No Hx Other Resistant Infection?: No Isolation: Standard precautions Hx Recent Travel Out of the country within 10 days (where): No Hx Fever: No Hx Fever with a rash?: No Social History Does patient have suicidal/homicidal thoughts or ideation?: No Are you in a relationship with/Does anyone hit you, yell/swear at you, steal from you?: No Substance Use Hx Alcohol Use: No Hx Substance Use: No Hx Substance Use Treatment: No Tobacco Use Hx Chewing Tobacco Use: No Vaccination History Hx/Date of Tetanus, Diphtheria Vaccination: No Hx/Date of Influenza Vaccination: Yes Hx/Date of Pneumococcal Vaccination: No ROS Review of Systems Constitutional: Denies fever, chills and malaise Eyes: Denies vision change ENT: Denies mouth pain, nasal discharge, nasal congestion, throat pain and hoarseness Respiratory: Denies cough and SOB Cardiovascular: Denies chest pain and palpitations Gastrointestinal: Reports nausea and abdominal pain; Denies vomiting and diarrhea Genitourinary-Female: Denies dysuria, frequency and urgency Musculoskeletal: Denies neck pain, arm pain and back pain Skin/Breasts: Denies rash, hives and pruritus Neurologic: Denies weakness, headache and lightheadedness Physical Exam General Limitations: no limitations General appearance: alert and in no apparent distress Head Head exam: Present atraumatic and normocephalic Eye Eye exam: Present normal apperance and EOMI ENT ENT exam: Present normal exam, normal orophraynx and mucous membranes moist Neck Neck exam: Present normal inspection, full ROM and supple Respiratory Respiratory exam: Present normal lung sounds bilaterally Cardiovascular Cardiovascular Exam: Present regular rate and normal rhythm GI/Abdominal GI/Abdominal exam: Present soft and tenderness (RUQ tenderness with guarding) Extremities Exam Extremities exam: Present normal inspection and full ROM; Absent tenderness Back Exam Back exam: Present normal inspection and full ROM; Absent tenderness Neurological Exam Neurological exam: Present alert, oriented X3, normal gait and other (speech normal) Psychiatric Psychiatric exam: Present normal affect and normal mood Skin Skin exam: Present warm, dry, intact and normal color Vital Signs Vital Signs: Vital Signs 03/17/19 12:07 Temperature 97.7 F Pulse Rate 77 Respiratory Rate 16 Blood Pressure 113/78 O2 Sat by Pulse Oximetry 100 MDM (comprehensive) Lab Data Labs: 03/17/19 12:23 03/17/19 12:23 Laboratory Results Last 24 hours 03/17/19 12:23: WBC 6.9, RBC 4.34, Hgb 13.6, Hct 41.6, MCV 95.9, MCH 31.3 H, MCHC 32.7 L, RDW 12, Plt Count 224, MPV 9.1, Immature Gran % (Auto) 0.1, Neut % (Auto) 62.8, Lymph % (Auto) 26.2, [place] % (Auto) 9.3, Eos % (Auto) 1.3, Baso % (Auto) 0.3 L, Lymph # (Auto) 1.8, Abs Immat Gran (auto) 0.0, Add Manual Diff No, Absolute Neutrophils 4.3, Monocytes # 0.6, Absolute Eosinophils 0.1, Absolute Basophils 0.0 03/17/19 12:23: Sodium 141, Potassium 3.9, Chloride 112 H, Carbon Dioxide 23, Anion Gap 10, BUN 10, Creatinine 0.8, GFR Calculation Greater than 60, Glucose 96, Calcium 8.8, Total Bilirubin 0.3, AST 21, ALT 21, Alkaline Phosphatase 94, Serum Total Protein 7.6, Albumin 3.8, Amylase 52, Lipase 126 Radiology Data Radiology impressions: The patietn's HIDA scan, performed this morning, demonstrates a dyskinetic gallbladder Medical Decision Making Free Text/Narative:: the patient was discussed with Dr. Arboleda, and he will see the patient in followup in his office on 03/22/19, to schedule a cholecystectomy Discharge Plan Admission/Discharge Dx Primary DC Diagnosis: gallbladder dyskinesis; biliary colic ED Provider: Hardy Rosario ED Status: Sign up Time Seen by Provider: 03/17/19 12:08 Triaged At: 03/17/19 12:07 Discharge Detail Disposition: Home, Self-Care Med Rec New Prescriptions: New ondansetron HCl 4 mg tablet 4 mg PO Q6HR PRN (Reason: nausea and vomiting) Qty: 20 RF: 1 Continued duloxetine 30 mg capsule,delayed release(DR/EC) 30 mg PO QDAY RF: 0 Low-Ogestrel (28) 0.3-30 mg-mcg tablet 1 tab PO DAILY RF: 0 Discharge Education Printouts: Biliary Colic (ED) Follow Up Visit/Referrals: Golden Arboleda [PHYSICIAN] - Discharge Problem: Dyskinesia of gallbladder Medications Medication reconciliation performed by provider at discharge: Yes Follow Up Care/Instructions Diet/Activity/Wound Care..: avoid fried, fatty and spicy foods, and any vegetable in the cabbage family ( cabbage, broccoli, cauliflower. brussels sprouts, etc.); take the Zofran a prescribed for nausea; Take Tylenol and/or Ibuprofen, as needed for pain; make an appointment to follow up with Dr. Arboleda, out Surgeon, on 03/21/19 *Discharge Patient* Discharge Orders: Discharge Order (Routine); Ordered 03/17/19 Ordered By: Hardy castillo Interventions: ED GI Gastrointestinal Last Done: 03/17/19 12:13 Report Signers: <Electronically signed by Hardy Rosario MD> Hardy Rosario MD 03/17/19 1315 Hardy Rosario MD SIGNATURE DA Report Cosigners: D: DAFNE 03/17/195 T: DAFNE 03/17/195 CC: Rebecca Ocasio RNC [facility] Name Value Range Interpretation Code Description Data Mirna rce(s) Supporting Document(s) ID Date Data Source [id number] 03/15/2019 08:26:[address] [facility] Name Value Range Interpretation Code Description Data Mirna rce(s) Supporting Document(s) Amylase [Enzymatic activity/volume] in Serum or Plasma 53 U/L 30- 118 [address] [facility] ID Date Data Source [id number] 03/15/2019 08:12:00 PM [facility] Value Range Interpretation Code Description Data Mirna rce(s) Supporting Document(s) Lipase [Enzymatic activity/volume] in Serum or Plasma 130 U/L 73-3 [address] [facility] ID Date Data Source [id number] 03/15/2019 07:30:[address] [facility] Name Value Range Interpretation Code Description Data Mirna rce(s) Supporting Document(s) Troponin I.cardiac [Mass/volume] in Serum or Plasma Less Than 0.010 0.00-0.09 [facility] Less than 0.09 NG/ML Negative0.10 - 0.77 NG/ML High Risk0.78 NG/ML or Greater PositiveThe WHO defined the cutoff (definition for diagnosis of NC)for this method as 0.78 ng/ml. ID Date Data Source [id number] 03/15/2019 06:54:[address] [facility] Name Value Range Interpretation Code Description Data Mirna rce(s) Supporting Document(s) Leukocytes [#/volume] in Blood by Automated count 7.2 10*3/uL 4.45-10 .71 [address] [facility] Erythrocytes [#/volume] in Blood by Automated count 4.26 10*6/uL 4.20 -5.40 N [facility] Hemoglobin [Moles/volume] in Blood 13.4 g/dL 10.7-15.4 N [facility] Hematocrit [Volume Fraction] of Blood by Automated count 41.3 % 3 7-47 N [facility] Erythrocyte mean corpuscular volume [Ent itic volume] in Cord blood by Automated count 96.9 fL 80-96 Above high normal [facility] Erythrocyte mean corpuscular hemoglobin [Entitic mass] by Automated count 31.5 pg 27-31 Above high normal [facility] spital Erythrocyte mean corpuscular hemoglobin concentration [Mass/volume] in Cord blood 32.4 g/dL 33-37 Below low normal [facility] Erythrocyte distribution width [Entitic volume] by Automated count 12 % 11-15 N [facility] Platelets [#/volume] in Blood by Automated count 236 10*3/uL 130-472 N [facility] Platelet mean volume [Entitic volume] in Blood 9.3 fL 9.1-13.1 N [facility] Neutrophils/100 leukocytes in Blood by Automated count 78.5 % 41-77 Above high normal [facility] Neutrophils [#/volume] in Blood by Automated count 5.7 U 1.7-7.6 N [facility] Lymphocytes/100 leukocytes in Blood by Automated count 12.6 % 14-46 Below low normal [facility] Lymphocytes [#/volume] in Blood by Automated count 0.9 U 0.6-4.6 N [facility] Monocytes/100 leukocytes in Blood by Automated count 7.6 % 4-12 N [facility] Monocytes [#/volume] in Blood by Automated count 0.6 U 0.2-1.2 N [facility] Eosinophils/100 leukocytes in Blood by Automated count 0.6 % 0-7 N [facility] Eosinophils [#/volume] in Blood by Automated count 0.0 U 0.0-0.5 N [facility] Basophils/100 leukocytes in Blood by Automated count 0.4 % 0.4-1 .3 N [facility] Basophils [#/volume] in Blood by Automated count 0.0 U 0.0-0.2 N [facility] NUCLEATED RED BLOOD CELL 0 % [facility] NUCLEATED RED BLOOD CELL# 0 [facility] Immature granulocytes [Presence] in Blood by Automated count 0-2 N [facility] Immature granulocytes [#/volume] in Blood by Automated count 0.0 U 0-0.1 N [facility] Manual Differential panel - Blood NO [facility] ID Date Data Source [id number] 03/15/2019 07:18:00 PM EST [facility] Name Value Range Interpretation Code Description Data Mirna rce(s) Supporting Document(s) Urea nitrogen [Mass/volume] in Serum or Plasma 11 mg/dL 9-23 N [facility] Sodium [Moles/volume] in Serum or Plasma 142 mmol/L 132-146 N [facility] Potassium [Moles/volume] in Serum or Plasma 3.5 mmol/L 3.5-5.5 [facility] Chloride [Moles/volume] in Serum or Plasma 112 mmol/L 99-109 Above high normal [facility] Carbon dioxide, total [Moles/volume] in Serum or Plasma 23 mmol/L 20 -31 N [facility] Anion gap in Serum or Plasma 11 mmol/L 8-16 N [facility] Glucose [Mass/volume] in Serum or Plasma 93 mg/dL 74-106 [facility] Creatinine 0.8 mg/dL 0.5-1.1 [facility] Glomerular filtration rate/1.73 sq M.pre dicted [Volume Rate/Area] in Serum or Plasma Greater Than 60 ABOVE 60 [facility] Alanine aminotransferase [Enzymatic acti vity/volume] in Serum or Plasma by With P-5'-P 13 U/L 10-49 N [facility] ital Aspartate aminotransferase [Enzymatic ac tivity/volume] in Serum or Plasma by With P-5'-P 14 U/L 0-33 N [facility] pital Alkaline phosphatase [Enzymatic activity/volume] in Serum or Plasma 100 U/L 45-129 N [facility] Calcium [Mass/volume] in Serum or Plasma 8.7 mg/dL 8.5-10.1 [facility] Bilirubin.total [Mass/volume] in Serum or Plasma 0.3 mg/dL 0.3-1.2 [facility] Albumin [Mass/volume] in Serum or Plasma by Bromocresol purple (BCP) dye binding method 3.9 g/dL 3.2-4.8 [facility] ital Protein [Mass/volume] in Serum or Plasma 7.6 g/dL 5.7-8.2 [facility] ID Date Data Source [id number] 03/15/2019 06:44:00 PM EST [facility] ([facility]) Name Value Range Interpretation Code Description Data Mirna rce(s) Supporting Document(s) Troponin I.cardiac [Mass/volume] in Serum or Plasma Laborato ry test result 0.00-0.09 [facility] ([facility]) ADBOMINAL PAIN Lipoprotein lipase [Enzymatic activity/volume] in Serum or P lasma 130 U/L 73-393 [facility] ([facility]) ADBOMINAL PAIN Amylase [Enzymatic activity/volume] in Serum or Plasma 53 U/L 30- 118 [facility] ([facility]) ADBOMINAL PAIN ID Date Data Source [id number] 03/15/2019 06:44:00 PM EST [facility] ([facility]) Name Value Range Interpretation Code Description Data Mirna rce(s) Supporting Document(s) Sodium [Moles/volume] in Serum or Plasma 142 mmol/L 132-146 [facility] ([facility]) ADBOMINAL PAIN Urea nitrogen [Mass/volume] in Serum or Plasma 11 mg/dL 9-23 [facility] ([facility]) ADBOMINAL PAIN Chloride [Moles/volume] in Serum or Plasma 112 mmol/L 99-109 [facility] ([facility]) ADBOMINAL PAIN Carbon dioxide, total [Moles/volume] in Serum or Plasma 23 mmol/L 20 -31 [facility] ([facility]) ADBOMINAL PAIN Potassium [Moles/volume] in Serum or Plasma 3.5 mmol/L 3.5-5.5 [facility] ([facility]) ADBOMINAL PAIN Creatinine 0.8 mg/dL 0.5-1.1 [facility]) ADBOMINAL PAIN Glucose [Mass/volume] in Serum or Plasma 93 mg/dL 74-106 [facility] ([facility]) ADBOMINAL PAIN Anion gap in Serum or Plasma 11 mmol/L 8-16 M [facility] ([facility]) ADBOMINAL PAIN Alkaline phosphatase [Enzymatic activity/volume] in Serum or Plasma 100 U/L 45-129 [facility] ([facility]) ADBOMINAL PAIN Aspartate aminotransferase [Enzymatic ac tivity/volume] in Serum or Plasma by With P-5'-P 14 U/L 0-33 [facility] ([facility]) ADBOMINAL PAIN Glomerular filtration rate/1.73 sq M.pre dicted [Volume Rate/Area] in Serum or Plasma Laboratory test result [facility] ADBOMINAL PAIN Alanine aminotransferase [Enzymatic acti vity/volume] in Serum or Plasma by With P-5'-P 13 U/L 10-[facility] ADBOMINAL PAIN Calcium [Mass/volume] in Serum or Plasma 8.7 mg/dL 8.5-10.1 [facility] ([facility]) ADBOMINAL PAIN Bilirubin.total [Mass/volume] in Serum or Plasma 0.3 mg/dL 0.3-1.2 [facility] ([facility]) ADBOMINAL PAIN Albumin [Mass/volume] in Serum or Plasma by Bromocresol purple (BCP) dye binding method 3.9 g/dL 3.2-4.8 [facility] ADBOMINAL PAIN Protein [Mass/volume] in Serum or Plasma 7.6 g/dL 5.7-8.2 [facility] ([facility]) ADBOMINAL PAIN ID Date Data Source [id number] 03/15/2019 06:44:00 PM EST [facility] Name Value Range Interpretation Code Description Data Mirna rce(s) Supporting Document(s) Leukocytes [#/volume] in Blood by Automated count 7.2 10*3/uL 4.45-10 .71 [facility] ADBOMINAL PAIN Hematocrit [Volume Fraction] of Blood by Automated count 41.3 % 3 7-47 [facility] ([facility]) ADBOMINAL PAIN Erythrocytes [#/volume] in Blood by Automated count 4.26 10*6/uL 4.20 -5.40 [facility] ([facility]) ADBOMINAL PAIN Hemoglobin [Moles/volume] in Blood 13.4 g/dL 10.7-15.4 [facility] ([facility]) ADBOMINAL PAIN Erythrocyte mean corpuscular volume [Ent itic volume] in Cord blood by Automated count 96.9 fL 80-96 [facility] ADBOMINAL PAIN Erythrocyte mean corpuscular hemoglobin concentration [Mass/volume] in Cord blood 32.4 g/dL 33-37 [facility] ADBOMINAL PAIN Erythrocyte distribution width [Entitic volume] by Automated count 12 % 11-15 [facility] ([facility]) ADBOMINAL PAIN Erythrocyte mean corpuscular hemoglobin [Entitic mass] by Automated count 31.5 pg 27-31 [facility] ([facility] ) ADBOMINAL PAIN Platelet mean volume [Entitic volume] in Blood 9.3 fL 9.1-13.1 [facility] ([facility]) ADBOMINAL PAIN Platelets [#/volume] in Blood by Automated count 236 10*3/uL 130-472 [facility] ([facility]) ADBOMINAL PAIN Neutrophils/100 leukocytes in Blood by Automated count 78.5 % 41- 77 [facility] ([facility]) ADBOMINAL PAIN Monocytes/100 leukocytes in Blood by Automated count 7.6 % 4-12 [facility] ([facility]) ADBOMINAL PAIN Neutrophils [#/volume] in Blood by Automated count 5.7 U 1.7-7.6 [facility] ([facility]) ADBOMINAL PAIN Lymphocytes [#/volume] in Blood by Automated count 0.9 U 0.6-4.6 [facility] ([facility]) ADBOMINAL PAIN Lymphocytes/100 leukocytes in Blood by Automated count 12.6 % 14- 46 [facility] ([facility]) ADBOMINAL PAIN Eosinophils [#/volume] in Blood by Automated count 0.0 U 0.0-0.5 [facility] ([facility]) ADBOMINAL PAIN Eosinophils/100 leukocytes in Blood by Automated count 0.6 % 0-7 [facility] ([facility]) ADBOMINAL PAIN Monocytes [#/volume] in Blood by Automated count 0.6 U 0.2-1.2 [facility] ([facility]) ADBOMINAL PAIN Nucleated Red Blood Cell 0 % [facility] ([facility]) ADBOMINAL PAIN Basophils/100 leukocytes in Blood by Automated count 0.4 % 0.4-1 .3 [facility] ([facility]) ADBOMINAL PAIN Basophils [#/volume] in Blood by Automated count 0.0 U 0.0-0.2 [facility] ([facility]) ADBOMINAL PAIN Manual Differential panel - Blood Laboratory test result [facility] ([facility]) ADBOMINAL PAIN Immature granulocytes [Presence] in Blood by Automated count 0.3 0-2 [facility] ([facility]) ADBOMINAL PAIN Immature granulocytes [#/volume] in Blood by Automated count 0.0 U 0-0.1 [facility] ([facility]) ADBOMINAL PAIN Laboratory test finding (navigational concept) 0 U [facility] ([facility]) ADBOMINAL PAIN ID Date Data Source [id number] 03/15/2019 06:43:[address] [facility] ED Physician Documentation NAME: PETROS HERRING : 1990 AGE: 28 MR#: [id number] SERVICE DATE: 03/15/[address]: Reynold Jeffrey PRIMARY CARE DR: Rebecca Hanks RNC ANP ROOM#: HPI (Adult, General) General Chief Complaint: GI Stated Complaint: ADBOMINAL PAIN Time Seen by Provider: 03/15/19 18:18 Source: patient Exam Limitations: no limitations History of Present Illness Narrative: Patient is a 28-year-old female who presents to [facility] ED on 03/15/2019, for abdominal pain x36 hours. Resident states she experienced the onset of right abdominal pain yesterday morning that progressively worsened throughout the day, described as sharp, stabbing and burning, rated 8/10. Patient reports nausea and the inability to comfortable. Last night she went to [facility] ER where she states she received a test, abdominal/pelvic CT that were both negative and told to follow-up with her [employer]. Patient states she had the onset of chest pain in the center of her chest over her sternum that radiated to her right side. Patient states she went to see her [employer] who told her to go to the ER. Patient denies dysuria though states she has pressure whenshe pees. She reports she has had little to no appetite since yesterday morning. Reports the onsetof diarrhea this morning with 34 loose/watery BMs. Patient also reports the onset of mild to moderate headache for the last few hours that is throughout her whole head and throbbing. History of Present Illness Timing/Duration: getting worse and other (36 hours) Place Injury/Event Occurred (if applicable): home Allergies/Home Meds Allergies Allergy/AdvReac Type Severity Reaction Status Date / Time Sulfa (Sulfonamide Allergy Mild Hives Verified 03/15/19 17:27 Antibiotics) tramadol Allergy Mild itching Verified 03/15/19 17:27 Home Medications Medication Instructions Recorded Confirmed Last Taken Type duloxetine 30 mg capsule,delayed 30 mg PO QDAY 10/12/18 03/15/19 03/15/19 History release Erenumab-Aooe [Aimovig 140 mg SUBCUT Q30D #1 box 03/15/19 03/15/19 02/19/19 History Autoinjector] norgestrel-ethinyl estradiol 1 tab PO DAILY 03/15/19 03/15/19 03/15/19 History [Low-Ogestrel (28)] topiramate 50 mg tablet 150 mg PO DAILY tab 03/15/19 03/15/19 03/15/19 History ER plan Plan of care and ER treatment: An ER treatment plan was discussed with patient and family, Patient encouraged to ask questions about plan and ER treatments and Patient agrees with ER plan of care Plan: CBC, CMP, UA, gallbladder ultrasound, EKG, troponin PMH (from Triage) Patient Medical History PMH Reviewed/Updated as Needed: Yes PMH/PSH from Triage: Medical History (Updated 06/07/18 @ 17:50 by Miriam Encinas NP) Anxiety (Medical) migranes (Medical) Surgical History (Updated 10/21/18 @ 13:19 by Debbi Pinto) History of - surgery (Surgical 05/26/18) failed D C D C 10/13/18 History of - surgery (Surgical 01/20/17) LEEP [place] teeth extraction (Surgical) Medical History (Updated 06/07/18 @ 17:50 by Miriam Encinas NP) Anxiety (Medical) migranes (Medical) Surgical History (Updated 10/21/18 @ 13:19 by Debbi Pinto) History of - surgery (Surgical 05/26/18) failed D C D C 10/13/18 History of - surgery (Surgical 01/20/17) LEEP [place] teeth extraction (Surgical) Female History LMP:: Amenorrhea : No Hx Drug Resistant Infections Hx MRSA: (Methicillin- resistant Staphylococcus aureus): No Hx VRE (Vancomycin-resistant enterococci): No Hx C.Diff: No Hx CRKP: No Hx Other Resistant Infection?: No Isolation: Standard precautions Hx Recent Travel Out of the country within 10 days (where): No Hx Fever: No Hx Fever with a rash?: No Social History Does patient have suicidal/homicidal thoughts or ideation?: No Are you in a relationship with/Does anyone hit you, yell/swear at you, steal from you?: No Substance Use Hx Alcohol Use: No Hx Substance Use: No Hx Substance Use Treatment: No Smoking Status: Never smoker Tobacco Use Hx Chewing Tobacco Use: No Vaccination History Hx/Date of Tetanus, Diphtheria Vaccination: No Hx/Date of Influenza Vaccination: Yes Hx/Date of Pneumococcal Vaccination: No ROS Review of Systems Constitutional: Reports fever and chills Eyes: Denies vision change and eye pain ENT: Denies ear pain, nasal discharge, nasal congestion and throat pain Respiratory: Denies cough, sputum and SOB Cardiovascular: Reports chest pain and palpitations; Denies light headedness Ga strointestinal: Reports nausea, abdominal pain and diarrhea; Denies vomiting and constipation Genitourinary-Female: Reports other (Pressure when peeing); Denies dysuria and frequency Musculoskeletal: Denies neck pain, shoulder pain, arm pain, back pain and leg pain Skin/Breasts: Denies rash and pruritus Neurologic: Reports headache; Denies weakness, numbness, incoordination, change in speech, confusion, dizziness and lightheadedness Psychiatric: Denies anxiety and depression Endocrine: Reports Loss of appetite Allergic/Immunologic: Denies rash and fever Physical Exam General Limitations: no limitations General appearance: alert and anxious Head Head exam: Present atraumatic, normocephalic and normal inspection Eye Eye exam: Present normal apperance, PERRL and EOMI; Absent scleral icterus, conjunctival injection, nystagmus, periorbital swelling and periorbital tenderness Pupils: Present normal accommodation ENT ENT exam: Present normal orophraynx, mucous membranes moist and normal external ear exam Neck Neck exam: Present normal inspection, full ROM and supple; Absent tenderness and lymphadenopathy Respiratory Respiratory exam: Present normal lung sounds bilaterally; Absent respiratory distress, wheezes, rales and rhonchi Cardiovascular Cardiovascular Exam: Present tachycardia GI/Abdominal GI/Abdominal exam: Present tenderness (RUQ and RLQ, RUQ severe pain with palpation, RLQ moderate to severe pain with palpation), guarding (RUQ) and diminished bowel sounds; Absent rebound Extremities Exam Extremities exam: Present Full ROM without tenderness, capillary refill brisk; Absent pedal edema and calf tenderness Back Exam Back exam: Present full ROM; Absent tenderness, CVA tenderness (R), CVA tenderness (L), paraspinal tenderness and vertebral tenderness Neurological Exam Neurological exam: Present alert, oriented X3, CN II-XII intact, normal gait and reflexes normal Psychiatric Psychiatric exam: Present normal affect and normal mood Skin Skin exam: Prese nt warm, dry and intact Vital Signs Vital Signs: Vital Signs 03/15/19 17:24 03/15/19 22:14 03/15/19 23:04 Temperature 100.1 F H 98.2 F 98.2 F Pulse Rate 114 H 93 76 Respiratory Rate 16 17 14 Blood Pressure 111/73 118/84 110/56 O2 Sat by Pulse Oximetry 98 100 99 MDM (comprehensive) Lab Data Labs: 03/15/19 18:44 03/15/19 18:44 Laboratory Results Last 24 hours 03/15/19 18:35: Urine Color Yellow, Urine Appearance Clear, Urine pH 7.0, Ur Specific [place] 1.016,Urine Protein Negative, Urine Ketones Negative, Urine Blood Negative, Urine Nitrate Negative, Urine Bilirubin Negative, Urine Urobilinogen 1 eu/dl, Ur Leukocyte Esterase Negative, Add Ur MicroanalysisNo, Urine Glucose Negative 03/15/19 18:44: WBC 7.2, RBC 4.26, Hgb 13.4, Hct 41.3, MCV 96.9 H, MCH 31.5 H, MCHC 32.4 L, RDW 12, Plt Count 236, MPV 9.3, Immature Gran % (Auto) 0.3, Neut % (Auto) 78.5 H, Lymph % (Auto) 12.6 L, [place] % (Auto) 7.6, Eos % (Auto) 0.6, Baso % (Auto) 0.4, Lymph # (Auto) 0.9, Abs Immat Gran (auto) 0.0, Add Manual Diff No, Absolute Neutrophils 5.7, Monocytes # 0.6, Absolute Eosinophils 0.0, Absolute Basophils 0.0 03/15/19 18:44: Sodium 142, Potassium 3.5, Chloride 112 H, Carbon Dioxide 23, Anion Gap 11, BUN 11, Creatinine 0.8, GFR Calculation Greater than 60, Glucose 93, Calcium 8.7, Total Bilirubin 0.3, AST 14, ALT 13, Alkaline Phosphatase 100, Serum Total Protein 7.6, Albumin 3.9 03/15/19 18:44: Troponin I Less than 0.010 03/15/19 18:44: Lipase 130 03/15/19 18:44: Amylase 53 Plan Plan Plan: Labs are unremarkable with WBC WNL at 7.2 however neutrophil elevated at 78.5%, chloride elevated 112. Troponin negative. RUQ ultrasound revealed no acute findings. EKG revealed normal sinus rhythm. Discharge Plan Admission/Discharge Dx Primary DC Diagnosis: Abdominal pain ED Provider: Reynold Jeffrey ED Status: Discharged Time Seen by Provider: 03/15/19 18:18 Triaged At: 03/15/19 16:30 Condition Condition: Stable Discharge Detail Disposition: Home, Self-Care Med Rec New Prescriptions: No Action duloxetine 30 mg capsule,delayed release(DR/EC) 30 mg PO QDAY RF: 0 Low-Ogestrel (28) 0.3-30 mg-mcg tablet 1 tab PO DAILY RF: 0 Outpatient Orders (Lab/Xray/ect): NM HIDA Scan W/Ejection Fract (Stat) Timeframe: [id number] Facility: [facility] - Location: Radiology Ordered By: Reynold Jeffrey Follow Up Care/Instructions Diet/Activity/Wound Care..: Diet: As tolerated, simple bland foods such as rice, toast, applesauce and banana Activity: As tolerated Medications Percocet (4 tablets provided) take 1 tablet by mouth every 6 hours as needed for pain Zofran 8 mg tablet, place 1 tablet in mouth and allowed to dissolve last up to 8 hours Resume home medications as prescribed Follow-up With primary care physician within 7 to 10 days Return to [facility] for HIDA scan tomorrow morning Return to the emergency room With returning or worsening of symptoms to include but not limited to severe abdominal pain, nausea, vomiting, blood in stool, black tarry stools As needed Quality Indicators Conditions Present During Course of Hospitalization: None Apply *Discharge Patient* Discharge Orders: Discharge Order (Routine); Ordered 03/15/19 Ordered By: Reynold Jeffrey Discharge Date/Time: 03/15/19 23:07 Interventions Interventions: ED Discharge Instructions Last Done: 03/15/19 23:06 ED GI Gastrointestinal Last Done: 03/15/19 17:25 Report Signers: <Electronically signed by Reynold ABBASI> Reynold ABBASI 03/15/19 2155 Reynold Jeffrey SIGNATURE DA Report Cosigners: <<Signature on File>> Po Pozo MD 03/16/19425 <Electronically signed by Po Pozo MD> Po Pozo MD 03/16/19425 D: SHOSHANA 03/15/191842 T: SHOSHANA 03/15/191842 CC: Rebecca Ocasio RNC ANP Deidre Name Value Range Interpretation Code Description Data Mirna rce(s) Supporting Document(s) ID Date Data Source [id number] 03/15/2019 07:10:00 PM EST [facility] Reason for ordering culture: Abnormal fi ndings UAMethod of Collection:: Clean Catch Name Value Range Interpretation Code Description Data Mirna rce(s) Supporting Document(s) Color of Urine [facility] Appearance of Urine CLEAR [facility] pH of Urine by Test strip 7.0 5-8 [facility] Specific gravity of Urine by Refractometry 1.016 1.005-1.030 [facility] Leukocyte esterase [Presence] in Urine by Test strip NEGAT TRUNG [facility] Nitrite [Presence] in Urine by Test strip NEGATIVE [facility] Protein [Presence] in Urine by Test strip NEGATIVE [facility] Glucose [Mass/volume] in Urine by Automated test strip NEGATIVE NEG ATIVE [facility] Ketones [Presence] in Urine by Test strip NEGATIVE [facility] Urobilinogen [Presence] in Urine 0.2-1 EU/dl [facility] Bilirubin.total [Presence] in Urine by Automated test strip NEGATIVE [facility] Erythrocytes [#/volume] in Urine by Test strip NEGATIVE NEGATIVE [facility] URINE MICROSCOPIC? (CIF) NO [facility] ID Date Data Source [id number] 03/15/2019 06:35:00 PM EST [facility] ([facility]) Name Value Range Interpretation Code Description Data Mirna rce(s) Supporting Document(s) Color of Urine Laboratory test result [facility] ([facility]) Appearance of Urine Laboratory test result [facility] ([facility]) pH of Urine by Test strip 7.0 5-8 [facility] NT ([facility]) Specific gravity of Urine by Refractometry 1.016 1.005-1.030 [facility] ([facility]) Leukocyte esterase [Presence] in Urine by Test strip Laboratory anuel t result [facility] ([facility]) Protein [Presence] in Urine by Test strip Laboratory test result [facility] ([facility]) Nitrite [Presence] in Urine by Test strip Laboratory test result [facility] ([facility]) Glucose [Mass/volume] in Urine by Automated test strip Laborator y test result [facility] ([facility]) Ketones [Presence] in Urine by Test strip Laboratory test result [facility] ([facility]) Urobilinogen [Presence] in Urine Laboratory test result 0.2-1 [facility] ([facility]) Bilirubin.total [Presence] in Urine by Automated test strip Laboratory test result [facility] ([facility] ) Urine Microscopic? (Cif) Laboratory test result [facility] ([facility]) Erythrocytes [#/volume] in Urine by Test strip Laboratory test result [facility] ([facility]) ID Date Data Source [id number] 03/15/2019 04:37:00 PM [facility] [address] [place] [id number] [phone] NAME SEX PT STATUS ACCOUNT NUMBER PETROS HERRING [facility] ER [id number] ORDERING PHYSICIAN LOCATION MEDICAL RECORD NO. Reynodl BECERRA [id number] ATTENDING PHYSICIAN DATE OF DATE OF EXAM/TIME Rebecca Hanks, RNC 1990 03/15/19 / 190 TYPE / EXAM US Abd single organ/quadrant [...] findings REPORT SIGNATURE ON FILE 03/15/2019 (16:37 [place] Time ) Signed by: Sigrid Shaw M.D. Reported By Sigrid Shaw MD on 03/15/191636 Signed By Sigrid Shaw MD on 03/15 163 Date Time CC: Sigrid Shaw MD; Rebecca Hanks Techn: TABSA Trans Dt/Tm: Trans by: DT Prt Dt/Tm: 0115- 0029: Total DLP = 0.00 mGy-cm 8024-9293: Total Radiation Dose = 0.0000 mSv Lifetime Dose: 0 mSv Name Value Range Interpretation Code Description Data Mirna rce(s) Supporting Document(s) ID Date Data Source [id number] 03/15/2019 03:39:[address] [facility] Patient Name: PETROS HERRING : 1990 Sex: F Pt Unit #: [id number] Location:[facility] Provider: Visit Date/Time: 03/15/19 Primary Insurance: /BS [facility] Secondary Insurance: Self Pay Intake Vital Signs 03/15/19 15:40 Current Height 5 ft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
--- OUTSIDE RECORDS SUMMARY | 2020-04-05 11:52 | CCD ---
Author Author [facility] Organization [facility] Address Unknown Phone Unavailable Care Team Providers Care Assistant To The Vice President Name Role Phone Nkechi [phone] MD Golden LOZA Unavailable Unavailable Nkechi [phone] MD Golden LOZA Unavailable Unavailable Nkechi [phone] MD Golden LOZA Unavailable Unavailable Schrader II, [...] Po Pozo MD Unavailable Unavailable Maxwell, Mouna ENVIRONMENTAL CONSTRUCTION ENGINEER Unavailable Unavailable Maxwell, Mouna ENVIRONMENTAL CONSTRUCTION ENGINEER Unavailable Unavailable Maxwell, Mouna ENVIRONMENTAL CONSTRUCTION ENGINEER Unavailable Unavailable Maxwell, Mouna ENVIRONMENTAL CONSTRUCTION ENGINEER Unavailable Unavailable Maxwell, Mouna ENVIRONMENTAL CONSTRUCTION ENGINEER Unavailable Unavailable Maxwell, Mouna ENVIRONMENTAL CONSTRUCTION ENGINEER Unavailable Unavailable Maxwell, Mouna ENVIRONMENTAL CONSTRUCTION ENGINEER Unavailable Unavailable Maxwell, Mouna ENVIRONMENTAL CONSTRUCTION ENGINEER Unavailable Unavailable Maxwell, Mouna ENVIRONMENTAL CONSTRUCTION ENGINEER Unavailable Unavailable Maxwell, Mouna ENVIRONMENTAL CONSTRUCTION ENGINEER Unavailable Unavailable Maxwell, Mouna ENVIRONMENTAL CONSTRUCTION ENGINEER Unavailable Unavailable Maxwell, Mouna ENVIRONMENTAL CONSTRUCTION ENGINEER Unavailable Unavailable Maxwell, Mouna ENVIRONMENTAL CONSTRUCTION ENGINEER Unavailable Unavailable Maxwell, Mouna ENVIRONMENTAL CONSTRUCTION ENGINEER Unavailable Unavailable Maxwell, Mouna ENVIRONMENTAL CONSTRUCTION ENGINEER Unavailable Unavailable Maxwell, Mouna ENVIRONMENTAL CONSTRUCTION ENGINEER Unavailable Unavailable Maxwell, Mouna ENVIRONMENTAL CONSTRUCTION ENGINEER Unavailable Unavailable Maxwell, Mouna ENVIRONMENTAL CONSTRUCTION ENGINEER Unavailable Unavailable Maxwell, Mouna ENVIRONMENTAL CONSTRUCTION ENGINEER Unavailable Unavailable Maxwell, Mouna ENVIRONMENTAL CONSTRUCTION ENGINEER Unavailable Unavailable Maxwell, Mouna ENVIRONMENTAL CONSTRUCTION ENGINEER Unavailable Unavailable Maxwell, Mouna ENVIRONMENTAL CONSTRUCTION ENGINEER Unavailable Unavailable Maxwell, Mouna ENVIRONMENTAL CONSTRUCTION ENGINEER Unavailable Unavailable Maxwell, Mouna ENVIRONMENTAL CONSTRUCTION ENGINEER Unavailable Unavailable Maxwell, Mouna ENVIRONMENTAL CONSTRUCTION ENGINEER Unavailable Unavailable Maxwell, Mouna ENVIRONMENTAL CONSTRUCTION ENGINEER Unavailable Unavailable Maxwell, Mouna ENVIRONMENTAL CONSTRUCTION ENGINEER Unavailable Unavailable Luthringer, O Esau MD Unavailable [...] Unavailable Luthringer, O Esau MD Unavailable Unavailable LuthrKeith mejia MD Unavailable Unavailable Luthringer, Keith Lyn MD Unavailable Unavailable LuthrKeith mejia MD Unavailable Unavailable Luthringer O Esau LOZA Unavailable Unavailable Luthringer, Keith Lyn MD Unavailable Unavailable LuthrKeith mejia MD Unavailable Unavailable Luthrjackie, Keith Lyn MD Unavailable Unavailable Luthringer, O Esau MD Unavailable Unavailable Malgorzata, K Skyler Unavailable Unavailable Malgorzata, K Skyler Unavailable Unavailable Malgorzata, K Skyler MD Unavailable [...] Anna De Guzman MD Unavailable Unavailable DEIDRE, Amarjit Rebecca ANP Unavailable Unavailable DEIDRE, J Rebecca [...] Unavailable DEIDRE, J Rebecca ANP Unavailable Unavailable EDIDRE, J Rebecca ANP Unavailable Unavailable DEIDRE, J [...] Unavailable Unavailable Hardy Rosario MD Unavailable Unavailable [place], Rebecca J Unavailable Unavailable Violet Farris MD [...] J Rebecca ANP Unavailable Unavailable DEIDRE, J Rebceca ANP Unavailable Unavailable DEIDRE, J Rebecca ANP [...] is protected by Article 27-F of the [facility] Public Health law. If you continue you may have access to information: Regarding HIV / AIDS; Provided by facilities licensed or operated by the [facility] Office of Mental Health; or Provided by the [facility] Office for People With Developmental Disabilities. If such information is present, then the following [facility] mandated warning applies: This information has been [...] law may result in a fine or [place] health [place] sentence or both. A general authorization for the release of medical or other information is NOT sufficient authorization for further disc losure. Allergies and Adverse Reactions Type Description Substance Reaction Status Data Source(s ) Drug allergy tramadol Tramadol itching [facility] Drug allergy Sulfa (Sulfonamide Antibiotics) Sulfa (Sulfonami de Antibiotics) Hives [facility] l Family History Family Member Name Family Member Gender Family Member Status Date o f Status Description Data Source(s) Unknown Condition [facility] Unknown Condition [facility] Unknown Condition [facility] Unknown Condition [facility] Unknown Condition [facility] Unknown Condition [facility] Unknown Condition [facility] Unknown Condition [facility] Unknown Condition [facility] Unknown Condition [facility] Unknown Condition [facility] Unknown Male Problem [facility] ([employer] Encounters Encounter Providers Location Date Indications Data Source(s ) Outpatient Attender: KEIKO FONG MD 05/15/2020 12:0 0:00 AM [facility] Outpatient Attender: KEIKO FONG MDReferrer: KEIKO FONG MD 04/17/2020 12:00:00 AM [facility] Outpatient Attender: ANNA resendiz 03/26/2020 07:30:00 AM EST [facility] ([facility]) Outpatient Attender: Mouna ELDER Lizton Vandrahuljoseph 12:00:00 PM EST [facility] ([facility] ) Outpatient Attender: Matthew Abad MDReferrer: Rebecca MARCIAL ANP 03/12/2020 10:38:00 AM EST - 03/12/2020 11:21:00 AM EST [facility] Outpatient Attender: ANNA resendiz 02/02/2020 11:15:00 AM EST [facility] ([facility]) Outpatient Attender: Matthew Abad MD 01/18/2020 05:44: 00 PM [facility] Outpatient Attender: Matthew Abad MDReferrer: Rebecca MARCIAL ANP 01/18/2020 02:40:00 PM EST - 01/18/2020 04:23:00 PM EST [facility] Outpatient Attender: Zachery Schrader IIReferrer: Rebecca [facility] ANP 12/18/2019 09:04:00 AM EDT - 12/18/2019 10:01:00 AM EDT [facility] Outpatient Attender: KEIKO FONG MDReferrer: Mouna ELDER [id number] 11/14/2019 12:00:00 AM EDT - 11/14/2019 11:52:03 AM ED T Chronic migraine without aura, not intractable, without status migrainosus [facility] Chronic migraine without aura, not intra ctable, without status migrainosus Attender: AVINASH PRAJAPATI MD 10/13/19 06:16:51 PM EDT [facility] Outpatient Attender: KEIKO FONG MD 10/13/2019 12:0 0:00 AM EDT [facility] ( in Healthcare facility) Attender: Esau Talbert MDAdmitter: Esau Talbert MDConsultant: Rebecca Hanks 020 07:07:00 AM EDT - 10/12/2019 05:56:00 PM EDT [facility] Outpatient Attender: Esau Talbert MDAdmitter: Esau rader MD 10/12/2019 07:07:00 AM EDT - 10/12/2019 05:56:00 PM EDT DYSPAREUNIA (N94.1) AND IRREGULAR MENSES (N92.6) [facility] DYSPAREUNIA (N94.1) AND IRREGULAR MENSES (N92.6) Patient discharged. Outpatient Attender: Violet Farris MD 08/31/2019 0 4:46:00 PM EDT Z01.419, Z12.4 [facility] Z01.419, Z12.4 Outpatient Attender: Violet Farris MDReferrer: Rebecca DEL RIO ER ANP 08/31/2019 01:28:00 PM EDT - 08/31/2019 02:33:00 PM EDT [facility] Outpatient Attender: Mouna Casper 10:40:00 AM EDT [facility] ([facility] ) Outpatient Attender: Stone Agarwal MDReferrer: Rebecca HANKS ANP 03/29/2019 11:49:00 AM EST [facility] Outpatient Attender: [id number] Golden rAboleda MDAttender: Bryant De Guzman MD 03/20/2019 03:12:00 PM EST - 03/21/2019 04:00:00 PM EST 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 Emergency Attender: Hardy Rosario MD 12:05:00 PM EST - 03/17/2019 01:43:00 PM EST SIDE PAIN [facility] SIDE PAIN Patient discharged. Outpatient Attender: Reynold ABBASI 03/17/2019 09:00:00 AM EST RUQ PAIN [facility] RUQ PAIN Emergency Attender: Skyler Mcgarry MDAtten krysta: Reynold Jeffrey PAConsultant: Po Pozo MD 03/15/2019 04:30:00 PM EST - 03/15/2019 11:07:00 PM EST ADBOMINAL PAIN [facility] ADBOMINAL PAIN Patient discharged. Outpatient Attender: Gunner Woods DOReferrer: Rebecca MARCIAL ANP 03/15/2019 03:31:00 PM EST - 03/15/2019 04:29:00 PM EST [facility] Outpatient Referrer: Rebecca ENRIQUEZ 02/13/2019 09:33:00 AM EST [facility] Immunizations Vaccine Date Status Description Data Source(s) Influenza, injectable, MDCK, preservative free, adeel valent 12/18/2019 10:46:00 AM EDT completed [facility] ([facility]) Medications Medication Brand Name Start Date Product Form Dose Route Admi nistrative Instructions Pharmacy Instructions Status Indications Reaction Description Data Source(s) 800 mg 03/26/2020 12:00:00 AM EST tablet 50 TAKE 1 TABLET BY MOUTH EVERY 6-8 HOURS WITH FOOD TAKE 1 TABLET BY MOUTH EVERY 6-8 HOURS WITH FOOD SOLD: 03/27/2020 [facility] Cyclobenzaprine hydrochloride 10 MG Oral Tablet Cyclobenzapr ine HCL 03/26/2020 12:00:00 AM EST active M [facility]ENT ([facility]) Cyclobenzaprine hydrochloride 10 MG Oral Tablet CYCLOBENZAPR INE HCL 03/26/2020 12:00:00 AM EST tablet 14 TAKE ONE TABLET BY MOUTH EVERY DAY AT BEDTIME TAKE ONE TABLET BY MOUTH EVERY DAY AT BEDTIME SOLD: 03/27/2020 [facility] Phentermine Hydrochloride 15 MG Oral Capsule PHENTERMINE HCL 03/26/2020 12:00:00 AM EST capsule 30 TAKE ONE CAPSULE BY MOUTH EVERY MORNING 1/2 HOUR BEFORE BREAKFAST, MAXIMUM DAILY DOSE = 1 TAKE ONE CAPSULE BY MOUTH EVERY MORNING 1/2 HOUR BEFORE BREAKFAST, MAXIMUM DAILY DOSE = 1 SOLD: 03/27/2020 [facility] Ibuprofen 800 MG Oral Tablet Ibuprofen 03/26/2020 12:00:00 AM EST active [facility] ([facility]) Phentermine Hydrochloride 15 MG Oral Capsule Phentermine HCL 03/25/2020 12:00:00 AM EST ORAL active [facility]) 1-50 mg-mcg 12/21/2019 12:00:00 AM EDT tablet 84 TAKE ONE TABLET BY MOUTH TWICE A DAY X 4 DOSES THEN TAKE 1 DAILY ACTIVE PILLS ONLY TAKE ONE TABLET BY MOUTH TWICE A DAY X 4 DOSES THEN TAKE 1 DAILY ACTIVE PILLS ONLY SOLD: 12/27/2019 [facility] Ethynodiol Diac-Eth Estradiol 12/18/2019 09:57:53 AM EDT [address] [facility] Ethynodiol Diac-Eth Estradiol 12/18/2019 09:57:53 AM EDT [address] [facility] Ethynodiol Diac-Eth Estradiol 12/18/2019 09:57:53 AM EDT [address] [facility] Immunization Adminstration,1 Vaccine/Toxoid 12/18/2019 12:00 :00 AM [...] TAKE ONE TABLET BY MOUTH TWICE A DAY-AGNIESZKA DISLAG AND BEDTIME SOLD: 09/13/2019 [facility] 100 mg 09/03/2019 12:00:00 AM EDT tablet 60 TAKE ONE TABLET BY MOUTH TWICE A DAY-MORNING AND BEDTIME TAKE ONE TABLET BY MOUTH TWICE A DAY-AGNIESZKA DISLAG AND BEDTIME SOLD: 10/31/2019 [facility] [...] active Take 1 tablet by mouth daily [facility] 140 mg/mL 09/01/2019 12:00:00 AM EDT [...] 08/31/2019 02:27:26 PM EDT [address] [facility] Drospirenone-Ethinyl Estradiol 08/31/2019 02:27:26 PM EDT [address] [facility] Drospirenone-Ethinyl Estradiol 08/31/2019 02:27:26 PM EDT [address] [facility] Drospirenone-Ethinyl Estradiol 08/31/2019 02:27:26 PM EDT [address] [facility] topiramate 100 MG Oral Tablet Topiramate (Topamax) 100 mg tablet Topiramate (Topamax) 100 mg tablet 08/31/2019 01:49:02 PM EDT 300 MG active [facility] topiramate 100 MG Oral Tablet Topiramate (Topamax) 100 mg tablet Topiramate (Topamax) 100 mg tablet 08/31/2019 01:49:02 PM EDT 300 MG active [facility] topiramate 100 MG Oral Tablet Topiramate (Topamax) 100 mg tablet Topiramate (Topamax) 100 mg tablet 08/31/2019 01:49:02 PM EDT 300 MG completed [facility] topiramate 100 MG Oral Tablet Topiramate (Topamax) 100 mg tablet Topiramate (Topamax) 100 mg tablet 08/31/2019 01:49:02 PM EDT 300 MG active [facility] duloxetine 30 MG Delayed Release Oral Capsule Duloxetine Dul oxetine 08/31/2019 01:47:59 PM EDT 60 MG active [facility] duloxetine 30 MG Delayed Release Oral Capsule Duloxetine Dul oxetine 08/31/2019 01:47:59 PM EDT 60 MG completed [facility] duloxetine 30 MG Delayed Release Oral Capsule Duloxetine Dul oxetine 08/31/2019 01:47:59 PM EDT 60 MG active [facility] duloxetine 30 MG Delayed Release Oral Capsule Duloxetine Dul oxetine 08/31/2019 01:47:59 PM EDT 60 MG completed [facility] duloxetine 60 MG Delayed Release Oral Capsule Duloxetine HCL 08/31/2019 12:00:00 AM EDT ORAL active [facility] ([facility]) Acetaminophen 325 MG / Oxycodone Hydroch loride 5 MG Oral Tablet Oxycodone- Acetaminophen (Endocet) 5-325 mg tablet Oxycodone-Acetaminophen (Endocet) 5-325 mg tablet 03/21/2019 10:15:59 AM EST 1 TAB completed [facility] Acetaminophen 325 MG / Oxycodone Hydroch loride 5 MG Oral Tablet Oxycodone- Acetaminophen (Endocet) 5-325 mg tablet Oxycodone-Acetaminophen (Endocet) 5-325 mg tablet 03/21/2019 10:15:59 AM EST 1 TAB completed [facility] Acetaminophen 325 MG / Oxycodone Hydroch loride 5 MG Oral Tablet Oxycodone-Acetaminophen Oxycodone-Acetaminophen 03/21/2019 10:15:59 AM EST [address] [facility] Acetaminophen 325 MG / Oxycodone Hydroch loride 5 MG Oral Tablet Oxycodone-Acetaminophen Oxycodone-Acetaminophen 03/21/2019 10:15:59 AM EST [address] [facility] Acetaminophen 325 MG / Oxycodone Hydroch loride 5 MG Oral Tablet Oxycodone- Acetaminophen (Endocet) 5-325 mg tablet Oxycodone-Acetaminophen (Endocet) 5-325 mg tablet 03/21/2019 10:15:59 AM EST 1 TAB completed [facility] Acetaminophen 325 MG / Oxycodone Hydroch loride 5 MG Oral Tablet Oxycodone- Acetaminophen (Endocet) 5-325 mg tablet Oxycodone-Acetaminophen (Endocet) 5-325 mg tablet 03/21/2019 10:15:59 AM EST 1 TAB completed [facility] 5-325 mg 03/21/2019 12:00:00 AM EST [...] 03/20/2019 11:57:50 AM EST 650 MG active [facility] Ibuprofen 03/20/2019 11:57:50 AM EST 400 MG active [facility] Acetaminophen 325 MG Oral Tablet [Tyleno l] Acetaminophen (Tylenol) 325 mg Tablet Acetaminophen (Tylenol) 325 mg Tablet 03/20/2019 11:57:50 AM EST 650 MG active [facility] Ibuprofen 03/20/2019 11:57:50 AM EST 400 MG active [facility] Ibuprofen (Motrin Ib) 200 mg Capsule 03/20/2019 11:57:50 AM EST 400 MG completed [facility] Ibuprofen 03/20/2019 11:57:50 AM EST 400 MG active [facility] Acetaminophen 325 MG Oral Tablet [Tyleno l] Acetaminophen (Tylenol) 325 mg Tablet Acetaminophen (Tylenol) 325 mg Tablet 03/20/2019 11:57:50 AM EST 650 MG active [facility] Ibuprofen (Motrin Ib) 200 mg Capsule 03/20/2019 11:57:50 AM EST 400 MG completed [facility] Ibuprofen (Motrin Ib) 200 mg Capsule 03/20/2019 11:57:50 AM EST 400 MG completed [facility] Ibuprofen (Motrin Ib) 200 mg Capsule 03/20/2019 11:57:50 AM EST 400 MG completed [facility] Acetaminophen 325 MG Oral Tablet [Tylenol] Acetaminophen 03/20/2019 11:57:50 AM EST 650 MG active [facility] Acetaminophen 325 MG Oral Tablet [Tylenol] Acetaminophen 03/20/2019 11:57:50 AM EST 650 MG active [facility] Acetaminophen 325 MG Oral Tablet [Tylenol] Acetaminophen 03/20/2019 11:57:50 AM EST 650 MG active [facility] Acetaminophen 325 MG Oral Tablet [Tyleno l] Acetaminophen (Tylenol) 325 mg Tablet Acetaminophen (Tylenol) 325 mg Tablet 03/20/2019 11:57:50 AM EST 650 MG active [facility] Ondansetron 4 MG Oral Tablet Ondansetron Hcl Ondansetron Hcl 03/17/2019 01:08:59 PM EST 4 MG completed [facility] Ondansetron 4 MG Oral Tablet Ondansetron Hcl Ondansetron Hcl 03/17/2019 01:08:59 PM EST 4 MG completed [facility] Ondansetron 4 MG Oral Tablet Ondansetron Hcl Ondansetron Hcl 03/17/2019 01:08:59 PM EST 4 MG completed [facility] Ondansetron 4 MG Oral Tablet Ondansetron Hcl Ondansetron Hcl 03/17/2019 01:08:59 PM EST 4 MG completed [facility] Ondansetron 4 MG Oral Tablet Ondansetron Hcl Ondansetron Hcl 03/17/2019 01:08:59 PM EST 4 MG completed [facility] Ondansetron 4 MG Oral Tablet Ondansetron Hcl Ondansetron Hcl 03/17/2019 01:08:59 PM EST 4 MG completed [facility] Ondansetron 4 MG Oral Tablet Ondansetron Hcl Ondansetron Hcl 03/17/2019 01:08:59 PM EST 4 MG completed [facility] 4 mg 03/17/2019 12:00:00 AM EST tablet 20 TAKE ONE TABLET BY MOUTH EVERY 6 HOURS NEEDED FOR NAUSEA AND VOMITING TAKE ONE TABLET BY MOUTH EVERY 6 HOURS NEEDED FOR NAUSEA AND VOMITING SOLD: 03/21/2019 [facility] Norgestrel-Ethinyl Estradiol (Low-Ogestrel (28)) 0.3-30 mg-m cg tablet 03/15/2019 05:27:55 PM EST 1 TAB completed [facility] Norgestrel-Ethinyl Estradiol (Low-Ogestrel (28)) 0.3-30 mg-m cg tablet 03/15/2019 05:27:55 PM EST 1 TAB completed [facility] Norgestrel-Ethinyl Estradiol (Low-Ogestrel (28)) 0.3-30 mg-m cg tablet 03/15/2019 05:27:55 PM EST 1 TAB completed [facility] Norgestrel-Ethinyl Estradiol 03/15/2019 05:27:55 PM EST 1 T AB active [facility] Norgestrel-Ethinyl Estradiol 03/15/2019 05:27:55 PM EST 1 T AB active [facility] Norgestrel-Ethinyl Estradiol (Low-Ogestrel (28)) 0.3-30 mg-m cg tablet 03/15/2019 05:27:55 PM EST 1 TAB completed [facility] Norgestrel-Ethinyl Estradiol 03/15/2019 05:27:55 PM EST 1 T AB active [facility] topiramate 50 MG Oral Tablet Topiramate Topiramate 03/15/2019 03: 47:38 PM EST 150 MG completed [facility] topiramate 50 MG Oral Tablet Topiramate Topiramate 03/15/2019 03: 47:38 PM EST 150 MG completed [facility] topiramate 50 MG Oral Tablet Topiramate Topiramate 03/15/2019 03: 47:38 PM EST 150 MG completed [facility] Erenumab-Aooe (Aimovig Autoinjector) 70 MG/1 ML AUTO.INJCT 03/15/2019 03:46:50 PM EST 140 MG active [facility] Erenumab-Aooe 03/15/2019 03:46:50 PM EST 140 MG co mpleted [facility] Erenumab-Aooe (Aimovig Autoinjector) 70 MG/1 ML AUTO.INJCT 03/15/2019 03:46:50 PM EST 140 MG completed [facility] Erenumab-Aooe 03/15/2019 03:46:50 PM EST 140 MG co mpleted [facility] Erenumab-Aooe (Aimovig Autoinjector) 70 MG/1 ML AUTO.INJCT 03/15/2019 03:46:50 PM EST 140 MG active [facility] Erenumab-Aooe 03/15/2019 03:46:50 PM EST 140 MG co mpleted [facility] Erenumab-Aooe (Aimovig Autoinjector) 70 MG/1 ML AUTO.INJCT 03/15/2019 03:46:50 PM EST 140 MG active [facility] 140 mg/mL 03/10/2019 12:00:00 AM EST auto-injector [...] Aimovig 03/02/2019 12:00:00 AM EST active [facility] ([facility]) 30 mg 02/03/2019 12:00:00 AM EST [...] 10/18/2018 02:29:29 PM EDT 600 MG completed [facility] Ibuprofen 600 MG Oral Tablet Ibuprofen 10/18/2018 02:29:29 PM EDT 600 MG completed [facility] Ibuprofen 600 MG Oral Tablet Ibuprofen 10/18/2018 02:29:29 PM EDT 600 MG completed [facility] Ibuprofen 600 MG Oral Tablet Ibuprofen 10/18/2018 02:29:29 PM EDT 600 MG completed [facility] Ibuprofen 600 MG Oral Tablet Ibuprofen 10/18/2018 02:29:29 PM EDT 600 MG completed [facility] Ibuprofen 600 MG Oral Tablet Ibuprofen 10/18/2018 02:29:29 PM EDT 600 MG completed [facility] Ibuprofen 600 MG Oral Tablet Ibuprofen 10/18/2018 02:29:29 PM EDT 600 MG completed [facility] Metronidazole 500 MG Oral Tablet Metronidazole 10/18/2018 02:28:20 PM EDT 500 MG completed [facility] Metronidazole 500 MG Oral Tablet Metronidazole 10/18/2018 02:28:20 PM EDT 500 MG completed [facility] Metronidazole 500 MG Oral Tablet Metronidazole 10/18/2018 02:28:20 PM EDT 500 MG completed [facility] Metronidazole 500 MG Oral Tablet Metronidazole 10/18/2018 02:28:20 PM EDT 500 MG completed [facility] Metronidazole 500 MG Oral Tablet Metronidazole 10/18/2018 02:28:20 PM EDT 500 MG completed [facility] Metronidazole 500 MG Oral Tablet Metronidazole 10/18/2018 02:28:20 PM EDT 500 MG completed [facility] Metronidazole 500 MG Oral Tablet Metronidazole 10/18/2018 02:28:20 PM EDT 500 MG completed [facility] duloxetine 30 MG Delayed Release Oral Capsule Duloxetine Dul oxetine 10/12/2018 09:48:09 AM EDT 30 MG completed [facility] duloxetine 30 MG Delayed Release Oral Capsule Duloxetine Dul oxetine 10/12/2018 09:48:09 AM EDT 30 MG completed [facility] duloxetine 30 MG Delayed Release Oral Capsule Duloxetine Dul oxetine 10/12/2018 09:48:09 AM EDT 30 MG completed [facility] duloxetine 30 MG Delayed Release Oral Capsule Duloxetine Dul oxetine 10/12/2018 09:48:09 AM EDT 30 MG completed [facility] topiramate 50 MG Oral Tablet Topiramate Topiramate 10/12/2018 09: 44:22 AM EDT 200 MG completed [facility] topiramate 50 MG Oral Tablet Topiramate (Topamax) 50 m g tablet Topiramate (Topamax) 50 mg tablet 10/12/2018 09:44:22 AM EDT 200 MG completed [facility] topiramate 50 MG Oral Tablet Topiramate Topiramate 10/12/2018 09: 44:22 AM EDT 200 MG completed [facility] topiramate 50 MG Oral Tablet Topiramate (Topamax) 50 m g tablet Topiramate (Topamax) 50 mg tablet 10/12/2018 09:44:22 AM EDT 200 MG completed [facility] topiramate 50 MG Oral Tablet Topiramate (Topamax) 50 m g tablet Topiramate (Topamax) 50 mg tablet 10/12/2018 09:44:22 AM EDT 200 MG completed [facility] topiramate 50 MG Oral Tablet Topiramate Topiramate 10/12/2018 09: 44:22 AM EDT 200 MG completed [facility] topiramate 50 MG Oral Tablet Topiramate (Topamax) 50 m g tablet Topiramate (Topamax) 50 mg tablet 10/12/2018 09:44:22 AM EDT 200 MG completed [facility] 100 mg 10/03/2018 12:00:00 AM EDT tablet 60 TAKE ONE TABLET BY MOUTH TWICE A DAY, 1 IN THE MORNING AND 1 AT BEDTIME TAKE ONE TABLET BY MOUTH TWICE A DAY, 1 IN THE MORNING AND 1 AT BEDTIME SOLD: 07/02/2019 [facility] 100 mg 10/03/2018 12:00:00 AM [...] 05/26/2018 11:06:32 AM EDT 600 MG completed [facility] Ibuprofen 600 MG Oral Tablet Ibuprofen 05/26/2018 11:06:32 AM EDT 600 MG completed [facility] Ibuprofen 600 MG Oral Tablet Ibuprofen 05/26/2018 11:06:32 AM EDT 600 MG completed [facility] Ibuprofen 600 MG Oral Tablet Ibuprofen 05/26/2018 11:06:32 AM EDT 600 MG completed [facility] Ibuprofen 600 MG Oral Tablet Ibuprofen 05/26/2018 11:06:32 AM EDT 600 MG completed [facility] Ibuprofen 600 MG Oral Tablet Ibuprofen 05/26/2018 11:06:32 AM EDT 600 MG completed [facility] Ibuprofen 600 MG Oral Tablet Ibuprofen 05/26/2018 11:06:32 AM EDT 600 MG completed [facility] Erenumab-Aooe 04/06/2018 02:15:00 PM EST [facility] Erenumab-Aooe (Aimovig Autoinjector) 70 MG/1 ML AUTO.INJCT 04/06/2018 02:15:00 PM EST 70 MG completed [facility] Erenumab-Aooe (Aimovig Autoinjector) 70 MG/1 ML AUTO.INJCT 04/06/2018 02:15:00 PM EST 70 MG completed [facility] Erenumab-Aooe (Aimovig Autoinjector) 70 MG/1 ML AUTO.INJCT 04/06/2018 02:15:00 PM EST 70 MG completed [facility] Erenumab-Aooe 04/06/2018 02:15:00 PM EST 70 MG com [facility] Erenumab-Aooe 04/06/2018 02:15:00 PM EST 70 MG com [facility] Erenumab-Aooe (Aimovig Autoinjector) 70 MG/1 ML AUTO.INJCT 04/06/2018 02:15:00 PM EST 70 MG completed [facility] Insurance Providers Payer name Policy type / Coverage type Policy ID Covered alliance party ID Covered alliance party's relationship to mayes Policy Mayes Plan Information [place] 302/307 [id number] SP [id number] MVP [id number] [id number] SP [id number] [place] 302/307 [id number] SP [id number] EXCELLUS H [id number] Self [id number] EXCELLUS H [id number] Self [id number] MVP I [id number] Self [id number] [place] PPO 302/307 [id number] SP [id number] EXCELLUS H [id number] Self [id number] [place] 306/806 [id number] SP [id number] EXCELLUS H [id number] Self [id number] EXCELLUS BCBS B [id number] S [id number] [id number] [facility] O [id number] S [id number] [facility] HEA [id number] S [id number] EXCELLUS BLUE CROSS BLUE SHIELD HEA [id number] S [id number] P [id number] SP [id number] [place] 306/806 [id number] SP [id number] [place] 306/806 [id number] SP [id number] EXCELLUS BCBS B [id number] S [id number] [place] 306/806 [id number] SP [id number] BS [place] Trad/MX Commercial [id number] Family Dependen t [id number] BS [place] Trad/[place] Medigap Part B [id number] Self [id number] BS [place] Trad/[place] Medigap Part B [id number] Family Depe ndent [id number] BS [facility] Commercial [id number] Self [id number] EXCELLUS BLUE CROSS BLUE SHIELD HEA [id number] S [id number] EXCELLUS BLUE CROSS BLUE SHIELD HEA [id number] S [id number] [employer] Commercial Commercial [id number] Self [id number] BS [employer] Commercial [id number] Self [id number] [facility] [id number] EXCELLUS BCBS [id number] [place] [id number] [id number] EXCELLUS BCBS PI PI BS [place] Trad/MX Commercial [id number] Self [id number] BC[place] 306/806 [id number] SP [id number] [place] PPO 302/307 [id number] FA2 [id number] EXCELLUS BCBS B [id number] S [id number] EXCELLUS BCBS B [id number] C VYS [id number] EXCELLUS BCBS B [id number] C [id number] SPECIAL FUNDS [facility] [id number] SP [id number] [place] PPO 302/[id number] [facility] [id number] [employer] [id number] SP [id number] OTHER WORKERS COMPENSATION [id number] SP [id number] Problems, Conditions, and Diagnoses Code Display Name Description Problem Type Effective Dates Data Source(s) G43.709 Chronic migraine without aur a, not intractable, without status migrainosus Chronic migraine without aura, not intra ctable, without status migrainosus [facility] Procedure Description Date Indications Data Source(s) Ultrasonography of abdomen (procedure) 03/15/2019 07:0 1:00 PM [facility] Ultrasonography of abdomen (procedure) 03/15/2019 07:0 1:00 PM [facility] Ultrasonography of abdomen (procedure) 03/15/2019 07:0 1:00 PM [facility] Ultrasonography of abdomen (procedure) 03/15/2019 07:0 1:00 PM [facility] Ultrasonography of abdomen (procedure) 03/15/2019 07:0 1:00 PM [facility] Ultrasonography of abdomen (procedure) 03/15/2019 07:0 1:00 PM [facility] Ultrasonography of abdomen (procedure) 03/15/2019 07:0 1:00 PM [facility] Ultrasonography of abdomen (procedure) 03/15/2019 07:0 1:00 PM [facility] Ultrasonography of abdomen (procedure) 03/15/2019 07:0 1:00 PM [facility] Results ID Date Data Source [id number] 03/26/2020 12:00:00 AM [facility] Name Value Range Interpretation Code Description Data Mirna rce(s) Supporting Document(s) SARS coronavirus 2 Ag Negative [facility] This lab was ordered by [facility] and reported by [facility]. ID Date Data Source [id number] 03/12/2020 10:46:00 AM [facility] Patient Name: Petros Herring : 1990 Sex: F Pt Unit #: [id number] Location:[facility] Provider: Visit Date/Time: 03/12/20 Primary Insurance: BC/BS [facility] Secondary Insurance: [facility] ZA Intake Vital Signs 03/12/20 10:46 Current [...] a baby. no other questions or concerns. Asset Liability Analyst Required: No Accompanied by: Self / Same [...] Screening Screening Have you traveled outside of [facility] or [facility] in the last 14 days.: No Has patient experienced coronavirus symptoms: No PFSH Medical History Anxiety Endometriosis determined by laparoscopy History of hysterosalpingogram History of hysteroscopy Menstrual migraine migranes Surgical History History of - surgery (05/26/18) History of - surgery (01/20/17) History of cholecystectomy [place] teeth extraction Family History Mother Hyperlipidemia Father [...] wine substance use type: does not use sarabjit/religious: Anabaptist special sarabjit needs: No seatbelt use: always helmet use: Yes drive intox or ride w/ intox buggy driver: No working smoke detector in home: [...] well groomed Orientation: alert and oriented x3 HENWV Head: normocephalic and atraumatic Eyes General: appearance [...] The patient brought her complete file from [facility] and other institutions for us to abstracted [...] C[place] [address] Est Pt Limited Comp Patient Type Established History Expanded Problem Focused Exam Expanded Problem Focused Medical Decision Erica danielle Low Complexity Diagnoses Encounter for medication adjustment Z51.89 Time Spent (min) 20 <Electronically signed by Matthew Abad MD> 03/12/20 1244 Name Value Range Interpretation Code Description Data Mirna rce(s) Supporting Document(s) ID Date Data Source [id number] 02/05/2020 11:43:00 AM EST [facility] Name Value Range Interpretation Code Description Data Mirna rce(s) Supporting Document(s) SARS-CoV-2 (COVID-19) [facility] This lab was ordered by [facility] and reported by [employer]. ID Date Data Source [id number] 01/30/2020 05:41:00 PM [facility] Patient Name: Petros Herring : 1990 Sex: F Pt Unit #: [id number] Location:[facility] Provider: Visit Date/Time: 01/18/20 Primary Insurance: [facility] Secondary Insurance: Self Pay Provider Note I [...] told she had low ovarian reserve by C MD infertility, but they also indicated they did [...] <Electronically signed by Matthew Abad MD> 01/30/20 1743 Name Value Range Interpretation Code Description Data Mirna rce(s) Supporting Document(s) ID Date Data Source [id number] 01/29/2020 07:20:00 AM [facility] PATH SPEC #:: [id number] Name Value Range Interpretation Code Description Data Mirna rce(s) Supporting Document(s) Pathology studies (set) See scanned report [facility] ID Date Data Source [id number] 01/18/2020 03:23:00 PM [facility] Patient Name: Petros Herring : 1990 Sex: F Pt Unit #: [id number] Location:[facility] Provider: Visit Date/Time: 01/18/20 Primary Insurance: [facility] Secondary Insurance: Self Pay Intake Vital Signs [...] room air 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 She felt horrible when they did start and stopped the pills. She has had 2 periods since. She has endometriosis. She has pain on left side.. pain with intercourse and no libido. 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 Prior to that she had regular cycles [...] well groomed Orientation: alert and oriented x3 [facility] Head: normocephalic and atraumatic Eyes General: appearance [...] prepare for theexam and provider returned with roentgenologist to assist her into lithotomy position. A [...] Mirna rce(s) Supporting Document(s) SARS-CoV2 Rapid Antigen [facility] This lab was ordered by [facility] and reported by [facility]. ID Date Data Source [id number] 12/18/2019 09:23:00 AM EDT [facility] Patient Name: Petros Herring : 1990 Sex: F Pt Unit #: [id number] Location:[facility] Provider: Visit Date/Time: 12/18/19 Primary Insurance: [facility] Secondary Insurance: Self Pay Intake Vital [...] HX OVARIAN CYSTS AND HAD A HYSTERECTOMY. Asset Liability Analyst Required: No Is patient in pain?: No [...] Screening Screening Have you traveled outside of [facility] or [facility] in the last 14 days.: No Has patient experienced coronavirus symptoms: No PFSH Medical History (Updated 12/18/19 @ 10:25 by Zachery Schrader II, MD) Anxiety Endometriosis determined by laparoscopy History of hysterosalpingogram History of hysteroscopy Menstrual migraine migranes Surgical History History of - surgery (05/26/18) History of - surgery (01/20/17) History of cholecystectomy [place] teeth extraction Family H istory Mother Hyperlipidemia [...] wine substance use type: does not use sarabjit/religious: Anabaptist special sarabjit needs: No seatbelt use: always helmet use: Yes drive intox or ride w/ intox buggy driver: No working smoke detector in home: [...] ?PCOS found.She had recent laparoscopy done by [facility] with fulguration of minimal endometriosis and both tubes appeared patent. She has also had a LEEP done inthe past as well. Surgical report from [facility] reviewed.She was placed on Ken active only [...] at least 3 month trial of Zovia / and if not helpful either Oralissa or [...] oriented x3 Quality Reporting Sexual Activity Screening ([facility]) Sexually active?: Yes Assessment Plan Assessment Plan (1) Encounter for medication adjustment: Code(s): Z51.89 - Encounter for other specified aftercare (2) Hypomenorrhea/oligomenorrhea: Status: Acute Code(s): N91.5 - Oligomenorrhea, unspecified SNOMED Code(s): 746189396 Category: Medical (3) Contraception management: Status: Acute Code(s): Z30.9 - Encounter for contraceptive management, unspecified SNOMED Code(s): 733049960 Category: Medical Qualifiers: Contraceptive encounter type: initial [...] rce(s) Supporting Document(s) ID Date Data Source [id number] 11/14/2019 11:52:53 AM EDT [facility] Name Value Range Interpretation Code Description Data Mirna rce(s) Supporting Document(s) Progress Note [facility] [id number]/[id number] lbm [file] [id number]= ID Date Data Source [id number] 10/13/2019 06:16:51 PM EDT Lab [facility] [address] [address]# SURGICAL PATHOLOGY REPORTPatient Name:CK HERRINGOB:1990Received:10/12/2019Accession #:[id number](s) Received: A: Endometrial biopsyClinical Diagnosis and History: Dyspareunia/irregular menses. DIAGNOSIS:ENDOMETRIUM, BIOPSY - SECRETORY ENDOMETRIUM. GROSS DESCRIPTION: Specimen received in formalin labeled "endometrial biopsy" is 0.25 cc ofirregular turner-brown fragments of soft tissue, clotted blood, and mucuswhich are submitted in toto for microscopic examination. (1 block)jglrff/[facility] osteopathic clinicReported: 10/13/2019Electronically Signed Out By Fransico Bojorquez MD [facility] [place], [place] [address]Technical component performed at [facility], Histopathology, [address] [place] [address], [address].Reported at [facility], [address] [place] [address], [facility].This report may include immunohistochemical or in-situ hybridizationresults. Testing was developed and the performance characteristicsdetermined by [facility], as required byCLIA '88. The FDA has determined that approval for specific use is notnecessary for clinical use. The quality of Hematoxylin and Eosin stainsand as applicable, for all immunohistochemical and/or special stains,including positive and negative controls, were reviewed and consideredappropriate.ICD codes: N92.1 N94.10CPT4 codes: A: 92758C Name Value Range Interpretation Code Description Data Mirna rce(s) Supporting Document(s) ID Date Data Source [id number] 10/16/2019 01:55:00 PM EDT [place], [place] [address]PATIENT NAME: LUCRECIA HERRING OF : 1990REPORT: OPERATIONPATIENT NUMBER: [id number] STATUS: SDMEDICAL RECORD NUMBER: [id number] OF ADMISSION: 10/12/2019DATE OF DISCHARGE:ROOM: 01DATE OF [...] was carried out and sent to pathology, [facility] point *------* was inserted for uterine manipulation [...] ANGELITO Parkictated: 10/12/2019 13:16DT: 10/12/2019 13:24Job #: [id number]: Lauri FertilityNOTE: [facility] computer generated reports are not confirmed orauthenticated unless they are signed by the providerElectronically Authenticated by:ESAU TALBERT MD On 10/16/2019 01:55 PM EDT Name Value Range Interpretation Code Description Data Mirna rce(s) Supporting Document(s) ID Date Data Source [id number] 10/07/2019 09:30:00 AM EDT [facility] ([facility]) Name Value Range Interpretation Code Description Data Mirna rce(s) Supporting Document(s) Coronavirus 2019 Nasopharygeal Laboratory test result [facility] ([facility]) SARS-CoV-2, RADHA Not Detected Test was developed and its performance characteristics determined by [facility]. This test has not been FDA cleared [...] negative (not detected) result in this assay. [address] [address] Dir: Yajaira Moulton MD For inquiries, the physician may contact Branch: [phone] Lab: [phone] Testing performed at reference lab. Report copy to follow on a separate form. 11/15/19 REF LAB#:[id number] ID Date Data Source [id number] 10/04/2019 04:16:00 PM EDT [facility] ([facility]) Name Value Range Interpretation Code Description Data Mirna rce(s) Supporting Document(s) Choriogonadotropin.beta subunit [Moles/volume] in Seru m or Plasma Laboratory test result [facility] ([facility] ) GESTATIONAL AGE APPROXIMATE HCG RANGE (MIU/ML) [...] monitoring the treatment of cancer patients. Siemens ARI methodology. ID Date Data Source [id number] 10/04/2019 04:16:00 PM EDT [facility] ([facility]) Name Value Range Interpretation Code Description Data Mirna rce(s) Supporting Document(s) Blood Urea Nitrogen 11 mg/dL 7-18 [facility] ([facility]) Glucose, Fasting 93 mg/dL 70-100 [facility] ([facility]) Creatinine For GFR 0.85 mg/dL 0.55-1.30 [facility] ([facility]) Glomerular Filtration Rate [facility]) <content>Units are mL/min/1.73 m2</content>
<content></content>
<content>Chronic Kidney Disease Staging per NKF:</content>
<content></content>
<content>Stage I & II GFR >=60 Normal to Mildly Decreased</content>
<content>Stage III GFR 30- 59 Moderately Decreased</content>
<content>Stage IV GFR 15-29 Severely Decreased</content>
<content>Stage V GFR <15 Very Little GFR Left</content>
<content>ESRD GFR <15 on TECHNICAL SALES ASSOCIATE</content>
<content></content> Potassium Serum 3.7 meq/L 3.5-5.1 [facility] ([facility]) Sodium Level 141 meq/L 136-145 [facility] ([facility]) Chloride Level 111 meq/L 98-107 [facility] ([facility]) Anion Gap 6 meq/L 8-16 [facility]) Carbon Dioxide Level 24 meq/L 21-32 [facility] ([facility]) Calcium Level 8.8 mg/dL 8.5-10.1 [facility] ([facility]) Ast/Sgot 25 U/L 7-37 [facility] ([facility]) Alt/SGPT 44 U/L 12-78 [facility] ([facility]) Total Protein 7.0 GM/DL 6.4-8.2 [facility] ([facility]) Bilirubin,Total 0.3 mg/dL 0.2-1.0 [facility] ([facility]) Alkaline Phosphatase 92 U/L 45-117 [facility] ([facility]) Albumin 3.6 GM/DL 3.2-5.2 [facility] ([facility]) Albumin/Globulin Ratio 1.1 1.2-2.2 [facility] ([facility]) ID Date Data Source [id number] 10/04/2019 04:16:00 PM EDT [facility] ([facility]) Name Value Range Interpretation Code Description Data Mirna rce(s) Supporting Document(s) White Blood Count 7.5 10 4.0-10.0 [facility] ([facility]) Red Blood Count 4.11 10 4.00-5.40 [facility] ([facility]) Hemoglobin 13.0 g/dL 12.0-15.5 [facility] Hematocrit 39.3 % 36.0-47.0 [facility] Mean Corpuscular Volume 95.6 fl 80.0-96.0 [facility] ([facility]) Mean Corpuscular Hemoglobin 31.6 pg 27.0-33.0 [facility] ([facility]) Mean Corpuscular HGB Conc 33.1 g/dL 32.0-36.5 [facility] ([facility]) Platelet Count, Automated 279 10 150-450 [facility] ([facility]) Red Cell Distribution Width 11.8 % 11.5-14.5 [facility] ([facility]) Nucleated Red Blood Cell % 0.0 % 0-0 [facility] ([facility]) ID Date Data Source [id number] 09/26/2019 12:00:00 AM EDT [facility] Mouna Arreola Np Patient Name: PETROS HERRING [id number] [facility] Date of : 1990[place] [address] Date of Exam: 09/26/2019#: Fax: [phone] EXAM: [...] solid nodule is seen bilaterally.Accredited by the [employer] in General Ultrasound.Norm Cam, ISABEL/Ronnie you for referring PETROS HERRING to our office. Electronically Signed - NORM CAM MD 09/26/19 15:01 Name Value Range Interpretation Code Description Data [facility] rce(s) Supporting Document(s) ID Date Data Source [id number] 09/12/2019 11:30:00 AM EDT [facility] Name Value Range Interpretation Code Description Data [facility] rce(s) Supporting Document(s) Laboratory test finding (navigational concept) Laboratory test result [facility] ([facility]) A false negative result may occur if [...] pathogens. DISCLAIMER: Testing was performed using the [employer] SARS-CoV-2 test. This test was developed and its performance characteristics determined by [employer]. This test has not been FDA cleared [...] or revoked sooner. ID Date Data Source [id number] 09/11/2019 09:41:00 AM EDT [facility] ([facility]) Name Value Range Interpretation Code Description Data [facility](s) Supporting Document(s) Choriogonadotropin.beta subunit [Moles/volume] in Seru m or Plasma Laboratory test result [facility] ([facility] ) <content>QUANTITATIVE RESULT QU ALITATIVE INTERPRETATION</content>
<content> </content>
<content><5.0 IU/L NEGATIVE</content>
<content>5.0 - 25.0 IU/L INDETERMINATE</content>
<content>>25.0 IU/L POSITIVE</content>
<content></content> ID Date Data Source [id number] 09/11/2019 09:39:00 AM EDT [facility] ([facility]) Name Value Range Interpretation Code Description Data Mirna rce(s) Supporting Document(s) Laboratory test finding (navigational concept) 42.0 % 38.0-51.0 [facility] ([facility]) Laboratory test finding (navigational concept) 95 mg/dL 70-105 [facility] ([facility]) Laboratory test finding (navigational concept) 142 meq/L 136-145 [facility] ([facility]) Laboratory test finding (navigational concept) 4.1 meq/L 3.5-5.1 [facility] ([facility]) Laboratory test finding (navigational concept) 5.0 mg/dL 4.5-5.3 [facility] ([facility]) Laboratory test finding (navigational concept) 21.0 MM/L 23.0-27.0 [facility] ([facility]) Laboratory test finding (navigational concept) 109 meq/L 98-109 [facility] ([facility]) Laboratory test finding (navigational concept) 0.7 mg/dL 0.6-1.3 [facility] ([facility]) Laboratory test finding (navigational concept) 11 mg/dL 8-26 [facility] ([facility]) ID Date Data Source [id number] 09/11/2019 09:00:00 AM EDT [facility] Special Instructions: hx of LEEPLAST MEN STRUAL PERIOD unsure; hx [id number] 531Collection Technique: BRUSH-SPATULAPATIENT INFORMATION: [id number] CYTOLOGY: OTHERDATES AND RESULTS: per pt stage1 cerv CA '17PREVIOUS TREATMENT: COLP-BXBody Site: CERVIX Name Value Range Interpretation Code Description Data Mirna rce(s) Supporting Document(s) Microscopic observation [Identifier] in Cervix by Cyto stain.thin pre p [facility] ID Date Data Source [id number] 09/05/2019 12:07:00 AM EDT [facility] NegativeNegativePerformed at: RN - [facility] [address] [id number] Director: Yajaira Moulton MD, Phone: [phone] Method of Collection:: Clean Catch Name Value Range Interpretation Code Description Data Mirna rce(s) Supporting Document(s) Trichomonas vaginalis DNA [Presence] in Unspecified specimen by Probe and target amplification method Negative [facility] Performed at: RN - [facility] [address] [id number] Director: Yajaira Moulton MD, Phone: [phone] Gardnerella vaginalis rRNA [Presence] in Genital specimen by DNA probe Negative [facility] Alida sp rRNA [Presence] in Vaginal fluid by DNA probe N egative [facility] ID Date Data Source [id number] 09/05/2019 12:07:00 AM EDT [facility] NegativeNegativePerformed at: RN [facility] [address] [id number] Director: Yajaira Moulton MD, Phone: [phone] Method of Collection:: Clean Catch Name Value Range Interpretation Code Description Data Mirna rce(s) Supporting Document(s) ID Date Data Source [id number] 08/31/2019 05:59:[facility] NegativeNegativePerformed at: [facility]N [facility] [address] [id number] Director: Yajaira Moulton MD, Phone: [phone] Method of Collection:: Clean Catch Name Value Range Interpretation Code Description Data Mirna rce(s) Supporting Document(s) Color of Urine [facility] Appearance of Urine CLEAR [facility] pH of Urine by Test strip 6.5 5-8 [facility] Specific gravity of Urine by Refractometry 1.004 1.005 -1.030 Abnormal (applies to non-numeric results) [facility] Leukocyte esterase [Presence] in Urine by Test strip NEGAT TRUNG [facility] Nitrite [Presence] in Urine by Test strip NEGATIVE [facility] Protein [Presence] in Urine by Test strip NEGATIVE [facility] Glucose [Mass/volume] in Urine by Automated test strip NEGATIVE NEG ATIVE [facility] Ketones [Presence] in Urine by Test strip NEGATIVE [facility] Urobilinogen [Presence] in Urine 0.2-1 EU/dl [facility] Bilirubin.total [Presence] in Urine by Automated test strip NEGATIVE [facility] Erythrocytes [#/volume] in Urine by Test strip NEGATIVE NEGATIVE [facility] URINE MICROSCOPIC? 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 Pt was dx by LEEP in 2017 with Stage 1 cervical cancer,states that the LEEP got all of it, has not had a pap since then. Pt has a diagnostic lap set up in September 2019. Pt does her own self breast exams when she remembers. Pt has no concerns bowel or bladder function. No concerns. Asset Liability Analyst Required: No Accompanied by: boyfriend Is patient [...] and colleagues, with an educational joyce from [employer]. HIV Testing Offer - ages 13-64 HIV testing Offer: No SBIRT Annual Questionnaire Are you currently in recovery for alcohol or substance use?: No Do you need a note to return Do you need a note to return to daycare/school/sports/work: No Coronavirus Screening Screening Have you traveled outside of [facility] or [facility] in the last 14 days.: No Has patient experienced coronavirus symptoms: No [facility] Medical History Anxiety migranes Surgical History History of - surgery (05/26/18) History of - surgery (01/20/17) History of cholecystectomy [place] teeth extraction Family History Mother Hyperlipidemia Father [...] wine substance use type: does not use sarabjit/religious: Anabaptist special sarabjit needs: No seatbelt use: always helmet use: Yes drive intox or ride w/ intox buggy driver: No working smoke detector in home: [...] Ectopics: 0 Multiple births: 0 HPI Annual 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 For HUMAN RELATIONS TEACHER evaluation. Patient has history of abnormal Pap, had LEEP procedure, diagnosed stage I cervical CA. Told the margins of the LEEP were negative. Has not done a Pap since that time. After her LEEP, her HUMAN RELATIONS TEACHER then, placed her on Low-Ogestrel as contraception. Bled minimally on it. (That HUMAN RELATIONS TEACHER has since retired). Was evaluated in 2018, [...] of blood. Saw a fertility specialist this year 2019, on the phone visit, has an [...] nourished Orientation: alert, awake and oriented x3 HENMT Head: normal to inspection, normocephalic and atraumatic [...] findings Plan - Violet Farris MD: 1. HUMAN RELATIONS TEACHER evaluation: Irregular uterine bleeding, minimal flow, abnormal Pap and contraception. 2. Labs: Pap/HPV, GC/chlamydia, PCR swab vagina, UA/C S. (2) Abnormal Pap smear of cervix: Status: Acute Code(s): R87.619 - Unspecified abnormal cytological findings in specimens from cervix uteri SNOMED Code(s): 418017337 Category: Medical Qualifiers: Abnormal Pap typ e: high grade squamous intraepithelial lesion (HGSIL) Qualified Code(s): R87.613 - High grade squamous intraepithelial lesion on cytologic smear of cervix (HGSIL) Korey - Violet Farris MD: 1. Status post LEEP which revealed stage I cervical CA on 01/20/2017. Has not had a Pap since then. 2. Patient states she has had a long period of amenorrhea and several attempts to induce bleeding with her HUMAN RELATIONS TEACHER, in that process the Pap has not been done. 3. Labs: Pap/HPV. (3) Contraception management: Status: Acute Code(s): Z30.9 - Encounter for contraceptive management, unspecified SNOMED Code(s): 863181562 Category: Medical Qualifiers: Contraceptive encounter type: initial prescription Contraceptive type: pill Qualified Code(s): Z30.011 - Encounter for initial prescription of contraceptive pills Korey - Violet Farris MD: 1. Contraception: Patient [...] Code(s): N91.5 - Oligomenorrhea, unspecified SNOMED Code(s): 119188705 Category: Medical Plan - Violet Farris MD: 1. Amenorrhea, hypomenorrhea, oligomenorrhea: Patient states to date, her HUMAN RELATIONS TEACHER has not been able to explain her [...] rce(s) Supporting Document(s) ID Date Data Source [id number] 03/21/2019 05:24:00 PM [facility] Name: PETROS HERRING : 1990 Age: 28 MR#: [id number] Admit Date: 03/20/19 Provider: Golden Arboleda MD [...] 24 hrs [STATUS] Routine Outpatient Location: Ambulatory [facility] Primary diagnosis: Intractable pain from biliary dyskinesia [...] Golden Arboleda SIGNATURE DA Report Cosigners: D: TAMARAOSU 03/21/19 1724 T: TAMARAOSU 05/11/19 1424 CC: Name Value Range Interpretation Code Description Data Mirna rce(s) Supporting Document(s) ID Date Data Source [id number] 03/29/2019 11:52:00 AM [facility] Name: PETROS HERRING : 1990 Age: 28 MR#: [id number] Admit Date: 03/29/19 Provider: Stone Agarwal MD [...] Reasons: Hospital Discharge Follow-up Nurse Note: s/p lap shon 03/21/2019 Asset Liability Analyst Required: No Accompanied by: Mother Is patient in pain?: Yes (mid abdomen) Pain scale (1-10): 2 Allergies Sulfa (Sulfonamide Antibiotics) Allergy (Mild, Verified 03/20/19 17:37) Hives tramadol Allergy (Mild, Verified 03/20/19 17:37) itching HIV Testing Offer - ages 13-64 Requirement for HIV testing offer been met?: Patient reports past refusal [facility] Medical History Anxiety migranes Surgical History History of - surgery (05/26/18) History of - surgery (01/20/17) [place] teeth extraction Family History Mother Hyperlipidemia Father [...] wine substance use type: does not use sarabjit/religious: Anabaptist special sarabjit needs: No seatbelt use: always helmet use: Yes drive intox or ride w/ intox buggy driver: No working smoke detector in home: [...] rce(s) Supporting Document(s) ID Date Data Source [id number] 03/23/2019 02:45:00 PM [facility] PATH SPEC #:: [id number] Name Value Range Interpretation Code Description Data Mirna rce(s) Supporting Document(s) Pathology studies (set) See scanned report [facility] ID Date Data Source [id number] 03/21/2019 08:35:00 AM EST [facility] Name: PETROS HERRING : 1990 Age: 28 MR#: [id number] Admit Date: 03/20/19 Provider: Golden Arboleda MD [...] > Golden Arboleda 03/21/19 1013 Golden Koch SIGNATURE DA Report Cosigners: D: ANJANA 03/21/19834 T: ANJANA 03/21/19834 CC: Name Value Range Interpretation Code Description Data Mirna rce(s) Supporting Document(s) ID Date Data Source [id number] 03/20/2019 03:05:00 PM [facility] Name: PETROS HERRING : 1990 Age: 28 MR#: [id number] Admit Date: 03/20/19 Provider: Golden Arboleda MD [...] wine substance use type: does not use sarabjit/religious: Anabaptist special sarabjit needs: No seatbelt use: always helmet use: Yes drive intox or ride w/ intox buggy driver: No working smoke detector in home: [...] Arboleda SIGNATURE DA Report Cosigners: D: KWOSU 03/20/19 1505 T: KWOSU 03/20/19 1505 CC: Name Value Range Interpretation Code Description Data Mirna rce(s) Supporting Document(s) ID Date Data Source [id number] 03/20/2019 11:51:00 AM [facility] ED Physician Documentation NAME: PETROS HERRING : 1990 AGE: 28 MR#: [id number] SERVICE DATE: 03/20/[address]: Anna De [...] History of - surgery (Surgical 01/20/17) LEEP [place] teeth extraction (Surgical) Female History : No [...] Discharge Detail Disposition: Admit to Critical Access [facility] Medications Medication reconciliation performed by provider at discharge: Yes *Discharge Patient* Discharge Orders: Provider hand off (NOW); Ordered 03/20/19 Ordered By: Anna De Guzman Discharge Date/Time: 03/20/19 16:18 Interventions Interventions: ED Admission/Handoff Last Done: 03/20/19 16:17 ED GI Gastrointestinal Last Done: 03/20/19 11:55 Report Signers: <Electronically signed by Anna D eGuzman MD> Anna De Guzman MD 03/20/19 1853 Anna De Guzman MD SIGNATURE DA Report Cosigners: D: COREY 03/20/191150 T: COREY 03/20/191150 CC: Rebecca Ocasio RNC ANP Deidre Name Value Range Interpretation Code Description Data Mirna rce(s) Supporting Document(s) ID Date Data Source [id number] 03/17/2019 12:54:00 PM EST [facility] Name Value Range Interpretation Code Description Data Mirna rce(s) Supporting Document(s) Urea nitrogen [Mass/volume] in Serum or Plasma 10 mg/dL 9-23 N [facility] Sodium [Moles/volume] in Serum or Plasma 141 mmol/L 132-146 [facility] Potassium [Moles/volume] in Serum or Plasma 3.9 mmol/L 3.5-5.5 [facility] Chloride [Moles/volume] in Serum or Plasma 112 mmol/L 99-109 Above high normal [facility] Carbon dioxide, total [Moles/volume] in Serum or Plasma 23 mmol/L 20 -31 N [facility] Anion gap in Serum or Plasma 10 mmol/L 8-[address] [facility] Glucose [Mass/volume] in Serum or Plasma 96 mg/dL 74-106 [facility] Creatinine 0.8 mg/dL 0.5-1.1 [facility] Glomerular filtration rate/1.73 sq M.pre dicted [Volume Rate/Area] in Serum or Plasma Greater Than 60 ABOVE 60 [facility] Alanine aminotransferase [Enzymatic acti vity/volume] in Serum or Plasma by With P-5'-P 21 U/L 10-49 N [facility] ital Aspartate aminotransferase [Enzymatic ac tivity/volume] in Serum or Plasma by With P-5'-P 21 U/L 0-[address] [facility] pital Alkaline phosphatase [Enzymatic activity/volume] in Serum or Plasma 94 U/L 45-129 N [facility] Calcium [Mass/volume] in Serum or Plasma 8.8 mg/dL 8.5-10.1 [facility] Bilirubin.total [Mass/volume] in Serum or Plasma 0.3 mg/dL 0.3-1.2 [facility] Albumin [Mass/volume] in Serum or Plasma by Bromocresol purple (BCP) dye binding method 3.8 g/dL 3.2-4.8 N [facility] ital Protein [Mass/volume] in Serum or Plasma 7.6 g/dL 5.7-8.2 [facility] ID Date Data Source [id number] 03/17/2019 12:54:00 PM [facility] Name Value Range Interpretation Code Description Data Mirna rce(s) Supporting Document(s) Amylase [Enzymatic activity/volume] in Serum or Plasma 52 U/L 30- 118 N [facility] ID Date Data Source [id number] 03/17/2019 12:54:00 PM [facility] Name Value Range Interpretation Code Description Data Mirna rce(s) Supporting Document(s) Lipase [Enzymatic activity/volume] in Serum or Plasma 126 U/L 73-3 93 N [facility] ID Date Data Source [id number] 03/17/2019 12:31:00 PM [facility] Name Value Range Interpretation Code Description Data Mirna rce(s) Supporting Document(s) Leukocytes [#/volume] in Blood by Automated count 6.9 10*3/uL 4.45-10 .71 [facility] Erythrocytes [#/volume] in Blood by Automated count 4.34 10*6/uL 4.20 -5.40 [facility] Hemoglobin [Moles/volume] in Blood 13.6 g/dL 10.7-15.4 [facility] Hematocrit [Volume Fraction] of Blood by Automated count 41.6 % 3 7-47 [facility] Erythrocyte mean corpuscular volume [Ent itic volume] in Cord blood by Automated count 95.9 fL 80-96 N [facility] ital Erythrocyte mean corpuscular hemoglobin [Entitic mass] by Automated count 31.3 pg 27-31 Above high normal [facility] spital Erythrocyte mean corpuscular hemoglobin concentration [Mass/volume] in Cord blood 32.7 g/dL 33-37 Below low normal [facility] Erythrocyte distribution width [Entitic volume] by Automated count 12 % 11-15 [facility] Platelets [#/volume] in Blood by Automated count 224 10*3/uL 130-472 N [facility] Platelet mean volume [Entitic volume] in Blood 9.1 fL 9.1-13.1 N [facility] Neutrophils/100 leukocytes in Blood by Automated count 62.8 % 41- 77 N [facility] Neutrophils [#/volume] in Blood by Automated count 4.3 U 1.7-7.6 N [facility] Lymphocytes/100 leukocytes in Blood by Automated count 26.2 % 14- 46 N [facility] Lymphocytes [#/volume] in Blood by Automated count 1.8 U 0.6-4.6 N [facility] Monocytes/100 leukocytes in Blood by Automated count 9.3 % 4-12 N [facility] Monocytes [#/volume] in Blood by Automated count 0.6 U 0.2-1.2 N [facility] Eosinophils/100 leukocytes in Blood by Automated count 1.3 % 0-7 N [facility] Eosinophils [#/volume] in Blood by Automated count 0.1 U 0.0-0.5 N [facility] Basophils/100 leukocytes in Blood by Automated count 0.3 % 0.4-1.3 Below low normal [facility] Basophils [#/volume] in Blood by Automated count 0.0 U 0.0-0.2 N [facility] NUCLEATED RED BLOOD CELL 0 % [facility] NUCLEATED RED BLOOD CELL# 0 U [facility] Immature granulocytes [Presence] in Blood by Automated count 0-2 N [facility] Immature granulocytes [#/volume] in Blood by Automated count 0.0 U 0-0.1 N [facility] Manual Differential panel - Blood NO [facility] ID Date Data Source [id number] 03/17/2019 12:23:00 PM EST [facility] ([facility]) Name Value Range Interpretation Code Description Data Mirna rce(s) Supporting Document(s) Amylase [Enzymatic activity/volume] in Serum or Plasma 52 U/L 30- 118 [facility] ([facility]) SIDE PAIN Lipoprotein lipase [Enzymatic activity/volume] in Serum or P lasma 126 U/L 73-393 [facility] ([facility]) SIDE PAIN ID Date Data Source [id number] 03/17/2019 12:23:00 PM EST [facility] ([facility]) Name Value Range Interpretation Code Description Data Mirna e(s) Supporting Document(s) Urea nitrogen [Mass/volume] in Serum or Plasma 10 mg/dL 9-23 [facility] ([facility]) SIDE PAIN Potassium [Moles/volume] in Serum or Plasma 3.9 mmol/L 3.5-5.5 [facility] ([facility]) SIDE PAIN Sodium [Moles/volume] in Serum or Plasma 141 mmol/L 132-146 [facility] ([facility]) S[facility] PAIN Glucose [Mass/volume] in Serum or Plasma 96 mg/dL 74-106 [facility] ([facility]) SIDE PAIN Anion gap in Serum or Plasma 10 mmol/L 8-16 [facility] ([facility]) SIDE PAIN Carbon dioxide, total [Moles/volume] in Serum or Plasma 23 mmol/L 20 -31 [facility] ([facility]) SIDE PAIN Chloride [Moles/volume] in Serum or Plasma 112 mmol/L 99-109 [facility] ([facility]) SIDE PAIN Glomerular filtration rate/1.73 sq M.pre dicted [Volume Rate/Area] in Serum or Plasma Laboratory test result [facility] ([facility]) SIDE PAIN Alanine aminotransferase [Enzymatic acti vity/volume] in Serum or Plasma by With P-5'-P 21 U/L 10-49 [facility] ([facility] [place]note 2]) SIDE PAIN Creatinine 0.8 mg/dL 0.5-1.1 [facility] Calcium [Mass/volume] in Serum or Plasma 8.8 mg/dL 8.5-10.1 [facility] ([facility]) SIDE PAIN Aspartate aminotransferase [Enzymatic ac tivity/volume] in Serum or Plasma by With P-5'-P 21 U/L 0-33 [facility] SIDE PAIN Alkaline phosphatase [Enzymatic activity/volume] in Serum or Plasma 94 U/L 45-129 [facility] ([facility]) SIDE PAIN Albumin [Mass/volume] in Serum or Plasma by Bromocresol purple (BCP) dye binding method 3.8 g/dL 3.2-4.8 [facility] ([facility] [place]note 2[facility] SIDE PAIN Bilirubin.total [Mass/volume] in Serum or Plasma 0.3 mg/dL 0.3-1.2 [facility] ([facility]) SIDE PAIN Protein [Mass/volume] in Serum or Plasma 7.6 g/dL 5.7-8.2 [facility] SIDE [facility]IN ID Date Data Source [id number] 03/17/2019 12:23:00 PM EST [facility] ([facility]) Name Value Range Interpretation Code Description Data Mirna rce(s) Supporting Document(s) Leukocytes [#/volume] in Blood by Automated count 6.9 10*3/uL 4.45-10 .71 [facility] ([facility]) SIDE PAIN Hemoglobin [Moles/volume] in Blood 13.6 g/dL 10.7-15.4 [facility] Erythrocytes [#/volume] in Blood by Automated count 4.34 10*6/uL 4.20 -5.40 [facility] S[facility]IN Erythrocyte mean corpuscular volume [Ent itic volume] in Cord blood by Automated count 95.9 fL 80-96 [facility] ([facility] [place]note 2[facility] SIDE PAIN Hematocrit [Volume Fraction] of Blood by Automated count 41.6 % 3 7-47 [facility] S[facility]IN Erythrocyte mean corpuscular hemoglobin concentration [Mass/volume] in Cord blood 32.7 g/dL 33-37 [facility] ([facility] [place]note 2[facility] SIDE PAIN Erythrocyte mean corpuscular hemoglobin [Entitic mass] by Automated count 31.3 pg 27-31 [facility] SIDE PAIN Platelets [#/volume] in Blood by Automated count 224 10*3/uL 130-472 [facility] SIDE PAIN Erythrocyte distribution width [Entitic volume] by Automated count 12 % 11-15 [facility] SIDE PAIN Platelet mean volume [Entitic volume] in Blood 9.1 fL 9.1-13.1 [facility] SIDE PAIN Neutrophils/100 leukocytes in Blood by Automated count 62.8 % 41- 77 [facility] S[facility] PAIN Lymphocytes/100 leukocytes in Blood by Automated count 26.2 % 14- 46 [facility] ([facility]) SIDE PAIN Neutrophils [#/volume] in Blood by Automated count 4.3 U 1.7-7.6 [facility] ([facility]) SIDE PAIN Lymphocytes [#/volume] in Blood by Automated count 1.8 U 0.6-4.6 [facility] ([facility]) SIDE PAIN Monocytes/100 leukocytes in Blood by Automated count 9.3 % 4-12 [facility] ([facility]) SIDE PAIN Monocytes [#/volume] in Blood by Automated count 0.6 U 0.2-1.2 [facility] ([facility]) SIDE PAIN Eosinophils/100 leukocytes in Blood by Automated count 1.3 % 0-7 [facility] ([facility]) SIDE PAIN Eosinophils [#/volume] in Blood by Automated count 0.1 U 0.0-0.5 [facility] ([facility]) SIDE PAIN Basophils/100 leukocytes in Blood by Automated count 0.3 % 0.4-1 .3 [facility] ([facility]) SIDE PAIN Basophils [#/volume] in Blood by Automated count 0.0 U 0.0-0.2 [facility] ([facility]) SIDE PAIN Laboratory test finding (navigational concept) 0 U [facility] ([facility]) SIDE PAIN Nucleated Red Blood Cell 0 % [facility] ([facility]) SIDE PAIN Immature granulocytes [Presence] in Blood by Automated count 0.1 0-2 [facility] ([facility]) SIDE PAIN Immature granulocytes [#/volume] in Blood by Automated count 0.0 U 0-0.1 [facility] ([facility]) SIDE PAIN Manual Differential panel - Blood Laboratory test result [facility] ([facility]) SIDE PAIN ID Date Data Source [id number] 03/17/2019 12:23:00 PM [facility] [address] [place] [address] [phone] NAME SEX PT STATUS ACCOUNT NUMBER PETROS HERRING REF [id number] ORDERING PHYSICIAN LOCATION MEDICAL RECORD NO. Reynold GALAVIZ [id number] ATTENDING PHYSICIAN DATE OF DATE OF EXAM/TIME Rebecca Hanks, RNC 1990 03/17/19 / 09 TYPE / EXAM NM HIDA Scan [...] Marquis Fabian MD; Stone Agarwal MD; Rebecca Hanks Techn: GRAMR Trans Dt/Tm: Trans by: DT Prt Dt/Tm: [id number]: Total DLP = 0.00 mGy-cm [id number]: Total Radiation Dose = 0.0000 mSv Lifetime Dose: 0 mSv Name Value Range Interpretation Code Description Data Mirna rce(s) Supporting Document(s) ID Date Data Source [id number] 03/17/2019 12:15:00 PM [facility] ED Physician Documentation NAME: PETROS HERRING : 1990 AGE: 28 MR#: [id number] SERVICE DATE: 03/17/[address]: Hardy Rosario MD PRIMARY CARE DR: Rebecca Hanks RNC ANP ROOM#: HPI (Adult, General) General Chief Complaint: GI Stated Complaint: SIDE PAIN Resident LT, travel outisde home, exposure to [...] History of - surgery (Surgical 01/20/17) LEEP [place] teeth extraction (Surgical) Female History : No [...] % (Auto) 62.8, Lymph % (Auto) 26.2, Porter % (Auto) 9.3, Eos % (Auto) 1.3, [...] T: DAFNE 03/17/195 CC: Rebecca Ocasio RNC ANP Deidre Name Value Range Interpretation Code Description Data Mirna rce(s) Supporting Document(s) ID Date Data Source [id number] 03/15/2019 08:26:00 PM [facility] Name Value Range Interpretation Code Description Data Mirna rce(s) Supporting Document(s) Amylase [Enzymatic activity/volume] in Serum or Plasma 53 U/L 30- 118 N [facility] ID Date Data Source [id number] 03/15/2019 08:12:00 PM [facility] Name Value Range Interpretation Code Description Data Mirna rce(s) Supporting Document(s) Lipase [Enzymatic activity/volume] in Serum or Plasma 130 U/L 73-3 93 N [facility] ID Date Data Source [id number] 03/15/2019 07:30:00 PM [facility] Name Value Range Interpretation Code Description Data Mirna rce(s) Supporting Document(s) Troponin I.cardiac [Mass/volume] in Serum or Plasma Less Than 0.010 0.00-0.09 [facility] Less than 0.09 NG/ML Negative0.10 - 0.77 NG/ML High Risk0.78 NG/ML or Greater PositiveThe WHO defined the cutoff (definition for diagnosis of DC)for this method as 0.78 ng/ml. ID Date Data Source [id number] 03/15/2019 06:54:00 PM EST [facility] Name Value Range Interpretation Code Description Data Mirna rce(s) Supporting Document(s) Leukocytes [#/volume] in Blood by Automated count 7.2 10*3/uL 4.45-10 .71 N [facility] Erythrocytes [#/volume] in Blood by Automated count 4.26 10*6/uL 4.20 -5.40 N [facility] Hemoglobin [Moles/volume] in Blood 13.4 g/dL 10.7-15.4 N [facility] Hematocrit [Volume Fraction] of Blood by Automated count 41.3 % 3 7-47 N [facility] Erythrocyte mean corpuscular volume [Ent itic volume] in Cord blood by Automated count 96.9 fL 80-96 Above high normal [facility] Erythrocyte mean corpuscular hemoglobin [Entitic mass] by Automated count 31.5 pg 27-31 Above high normal [facility] spital Erythrocyte mean corpuscular hemoglobin concentration [Mass/volume] in Cord blood 32.4 g/dL 33-37 Below low normal [facility] Erythrocyte distribution width [Entitic volume] by Automated count 12 % 11-15 N [facility] Platelets [#/volume] in Blood by Automated count 236 10*3/uL 130-472 N [facility] Platelet mean volume [Entitic volume] in Blood 9.3 fL 9.1-13.1 N [facility] Neutrophils/100 leukocytes in Blood by Automated count 78.5 % 41-77 Above high normal [facility] Neutrophils [#/volume] in Blood by Automated count 5.7 U 1.7-7.6 N [facility] Lymphocytes/100 leukocytes in Blood by Automated count 12.6 % 14-46 Below low normal [facility] Lymphocytes [#/volume] in Blood by Automated count 0.9 U 0.6-4.6 N [facility] Monocytes/100 leukocytes in Blood by Automated count 7.6 % 4-12 N [facility] Monocytes [#/volume] in Blood by Automated count 0.6 U 0.2-1.2 N [facility] Eosinophils/100 leukocytes in Blood by Automated count 0.6 % 0-7 N [facility] Eosinophils [#/volume] in Blood by Automated count 0.0 U 0.0-0.5 N [facility] Basophils/100 leukocytes in Blood by Automated count 0.4 % 0.4-1 .3 N [facility] Basophils [#/volume] in Blood by Automated count 0.0 U 0.0-0.2 N [facility] NUCLEATED RED BLOOD CELL 0 % [facility] NUCLEATED RED BLOOD CELL# 0 [facility] Immature granulocytes [Presence] in Blood by Automated count 0-2 N [facility] Immature granulocytes [#/volume] in Blood by Automated count 0.0 U 0-0.1 N [facility] Manual Differential panel - Blood NO [facility] ID Date Data Source [id number] 03/15/2019 07:18:00 PM EST [facility] Name Value Range Interpretation Code Description Data Mirna rce(s) Supporting Document(s) Urea nitrogen [Mass/volume] in Serum or Plasma 11 mg/dL 9-23 N [facility] Sodium [Moles/volume] in Serum or Plasma 142 mmol/L 132-146 [facility] Potassium [Moles/volume] in Serum or Plasma 3.5 mmol/L 3.5-5.5 [facility] Chloride [Moles/volume] in Serum or Plasma 112 mmol/L 99-109 Above high normal [facility] Carbon dioxide, total [Moles/volume] in Serum or Plasma 23 mmol/L 20 -31 [facility] Anion gap in Serum or Plasma 11 mmol/L 8-16 [facility] Glucose [Mass/volume] in Serum or Plasma 93 mg/dL 74-106 N [facility] Creatinine 0.8 mg/dL 0.5-1.1 [facility] Glomerular filtration rate/1.73 sq M.pre dicted [Volume Rate/Area] in Serum or Plasma Greater Than 60 ABOVE 60 [facility] Alanine aminotransferase [Enzymatic acti vity/volume] in Serum or Plasma by With P-5'-P 13 U/L 10-49 [facility] ital Aspartate aminotransferase [Enzymatic ac tivity/volume] in Serum or Plasma by With P-5'-P 14 U/L 0-[address] [facility] pital Alkaline phosphatase [Enzymatic activity/volume] in Serum or Plasma 100 U/L 45-129 N [facility] Calcium [Mass/volume] in Serum or Plasma 8.7 mg/dL 8.5-10.1 N [facility] Bilirubin.total [Mass/volume] in Serum or Plasma 0.3 mg/dL 0.3-1.2 [facility] Albumin [Mass/volume] in Serum or Plasma by Bromocresol purple (BCP) dye binding method 3.9 g/dL 3.2-4.8 N [facility] ital Protein [Mass/volume] in Serum or Plasma 7.6 g/dL 5.7-8.2 [facility] ID Date Data Source [id number] 03/15/2019 06:44:00 PM EST [facility] ([facility]) Name Value Range Interpretation Code Description Data Mirna rce(s) Supporting Document(s) Troponin I.cardiac [Mass/volume] in Serum or Plasma Laborato ry test result 0.00-0.09 [facility] ([facility]) ADBOMINAL PAIN Lipoprotein lipase [Enzymatic activity/volume] in Serum or P lasma 130 U/L 73-393 [facility] ([facility]) ADBOMINAL PAIN Amylase [Enzymatic activity/volume] in Serum or Plasma 53 U/L 30- 118 [facility] ([facility]) ADBOMINAL PAIN ID Date Data Source [id number] 03/15/2019 06:44:00 PM EST [facility] ([facility]) Name Value Range Interpretation Code Description Data Mirna rce(s) Supporting Document(s) Sodium [Moles/volume] in Serum or Plasma 142 mmol/L 132-146 [facility] ([facility]) ADBOMINAL PAIN Urea nitrogen [Mass/volume] in Serum or Plasma 11 mg/dL 9-23 [facility] ([facility]) ADBOMINAL PAIN Chloride [Moles/volume] in Serum or Plasma 112 mmol/L 99-109 [facility] ([facility]) ADBOMINAL PAIN Carbon dioxide, total [Moles/volume] in Serum or Plasma 23 mmol/L 20 -31 [facility] ([facility]) ADBOMINAL PAIN Potassium [Moles/volume] in Serum or Plasma 3.5 mmol/L 3.5-5.5 [facility] ([facility]) ADBOMINAL PAIN Creatinine 0.8 mg/dL 0.5-1.1 [facility] ADBOMINAL PAIN Glucose [Mass/volume] in Serum or Plasma 93 mg/dL 74-106 [facility] ([facility]) ADBOMINAL PAIN Anion gap in Serum or Plasma 11 mmol/L 8-16 M [facility] ([facility]) ADBOMINAL PAIN Alkaline phosphatase [Enzymatic activity/volume] in Serum or Plasma 100 U/L 45-129 [facility] ([facility]) ADBOMINAL PAIN Aspartate aminotransferase [Enzymatic ac tivity/volume] in Serum or Plasma by With P-5'-P 14 U/L 0-33 [facility] ([facility]) ADBOMINAL PAIN Glomerular filtration rate/1.73 sq M.pre dicted [Volume Rate/Area] in Serum or Plasma Laboratory test result [facility] ([facility]) ADBOMINAL PAIN Alanine aminotransferase [Enzymatic acti vity/volume] in Serum or Plasma by With P-5'-P 13 U/L 10-49 [facility] ([facility] [place]note 2[place] ADBOMINAL PAIN Calcium [Mass/volume] in Serum or Plasma 8.7 mg/dL 8.5-10.1 [facility] ([facility]) ADBOMINAL PAIN Bilirubin.total [Mass/volume] in Serum or Plasma 0.3 mg/dL 0.3-1.2 [facility] ([facility]) ADBOMINAL PAIN Albumin [Mass/volume] in Serum or Plasma by Bromocresol purple (BCP) dye binding method 3.9 g/dL 3.2-4.8 [facility] ADBOMINAL PAIN Protein [Mass/volume] in Serum or Plasma 7.6 g/dL 5.7-8.2 [facility] ([facility]) ADBOMINAL PAIN ID Date Data Source [id number] 03/15/2019 06:44:00 PM EST [facility] ([facility]) Name Value Range Interpretation Code Description Data Mirna rce(s) Supporting Document(s) Leukocytes [#/volume] in Blood by Automated count 7.2 10*3/uL 4.45-10 .71 [facility] ([facility]) ADBOMINAL PAIN Hematocrit [Volume Fraction] of Blood by Automated count 41.3 % 3 7-47 [facility] ([facility]) ADBOMINAL PAIN Erythrocytes [#/volume] in Blood by Automated count 4.26 10*6/uL 4.20 -5.40 [facility] ([facility]) ADBOMINAL PAIN Hemoglobin [Moles/volume] in Blood 13.4 g/dL 10.7-15.4 [facility] ([facility]) ADBOMINAL PAIN Erythrocyte mean corpuscular volume [Ent itic volume] in Cord blood by Automated count 96.9 fL 80-96 [facility] ([facility] [place][note 2]) ADBOMINAL PAIN Erythrocyte mean corpuscular hemoglobin concentration [Mass/volume] in Cord blood 32.4 g/dL 33-37 [facility] ([facility] [place][note 2[place] ADBOMINAL PAIN Erythrocyte distribution width [Entitic volume] by Automated count 12 % 11-15 [facility] ([facility]) ADBOMINAL PAIN Erythrocyte mean corpuscular hemoglobin [Entitic mass] by Automated count 31.5 pg 27-31 [facility] ([facility] ) ADBOMINAL PAIN Platelet mean volume [Entitic volume] in Blood 9.3 fL 9.1-13.1 [facility] ([facility]) ADBOMINAL PAIN Platelets [#/volume] in Blood by Automated count 236 10*3/uL 130-472 [facility] ([facility]) ADBOMINAL PAIN Neutrophils/100 leukocytes in Blood by Automated count 78.5 % 41- 77 [facility] ([facility]) ADBOMINAL PAIN Monocytes/100 leukocytes in Blood by Automated count 7.6 % 4-12 [facility] ([facility]) ADBOMINAL PAIN Neutrophils [#/volume] in Blood by Automated count 5.7 U 1.7-7.6 [facility] ([facility]) ADBOMINAL PAIN Lymphocytes [#/volume] in Blood by Automated count 0.9 U 0.6-4.6 [facility] ([facility]) ADBOMINAL PAIN Lymphocytes/100 leukocytes in Blood by Automated count 12.6 % 14- 46 [facility] ([facility]) ADBOMINAL PAIN Eosinophils [#/volume] in Blood by Automated count 0.0 U 0.0-0.5 [facility] ([facility]) ADBOMINAL PAIN Eosinophils/100 leukocytes in Blood by Automated count 0.6 % 0-7 [facility] ([facility]) ADBOMINAL PAIN Monocytes [#/volume] in Blood by Automated count 0.6 U 0.2-1.2 [facility] ([facility]) ADBOMINAL PAIN Nucleated Red Blood Cell 0 % [facility] T ([facility]) ADBOMINAL PAIN Basophils/100 leukocytes in Blood by Automated count 0.4 % 0.4-1 .3 [facility] ([facility]) ADBOMINAL PAIN Basophils [#/volume] in Blood by Automated count 0.0 U 0.0-0.2 [facility] ([facility]) ADBOMINAL PAIN Manual Differential panel - Blood Laboratory test result [facility] ([facility]) ADBOMINAL PAIN Immature granulocytes [Presence] in Blood by Automated count 0.3 0-2 [facility] ([facility]) ADBOMINAL PAIN Immature granulocytes [#/volume] in Blood by Automated count 0.0 U 0-0.1 [facility] ([facility]) ADBOMINAL PAIN Laboratory test finding (navigational concept) 0 U [facility] ([facility]) ADBOMINAL PAIN ID Date Data Source [id number] 03/15/2019 06:43:00 PM [facility] ED Physician Documentation NAME: PETROS HERRING : 1990 AGE: 28 MR#: [id number] SERVICE DATE: 03/15/[address]: Reynold Jeffrey PRIMARY CARE DR: Rebecca Hanks RNC ANP ROOM#: HPI (Adult, General) General Chief Complaint: GI Stated Complaint: ADBOMINAL PAIN Time Seen by Provider: 03/15/19 18:18 Source: patient Exam Limitations: no limitations History of Present Illness Narrative: Patient is a 28-year-old female who presents to [facility] ED on 03/15/2019, for abdominal pain x36 hours. Resident states she experienced the onset of right abdominal pain yesterday morning that progressively worsened throughout the day, described as sharp, stabbing and burning, rated 8/10. Patient reports nausea and the inability to comfortable. 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 Patient states she had the onset of chest pain in the center of her chest over her sternum that radiated to her right side. Patient states she went to see her PHOTOGRAPHY MANAGER who told her to go to the [...] History of - surgery (Surgical 01/20/17) LEEP [place] teeth extraction (Surgical) Medical History (Updated 06/07/18 @ 17:50 by Miriam Encinas NP) Anxiety (Medical) migranes (Medical) Surgical History (Updated 10/21/18 @ 13:19 by Debbi Pinto) History of - surgery (Surgical 05/26/18) failed D C D C 10/13/18 History of - surgery (Surgical 01/20/17) LEEP [place] teeth extraction (Surgical) Female History LMP:: Amenorrhea [...] Appearance Clear, Urine pH 7.0, Ur Specific [place] 1.016,Urine Protein Negative, Urine Ketones Negative, Urine [...] 78.5 H, Lymph % (Auto) 12.6 L, Porter % (Auto) 7.6, Eos % (Auto) 0.6, [...] Scan W/Ejection Fract (Stat) Timeframe: [id number] Facility: [facility] - Location: Radiology Ordered By: Reynold [...] within 7 to 10 days Return to [facility] for HIDA scan tomorrow morning Return [...] SHOSHANA 03/15/191842 CC: Rebecca Ocasio RNC ANP [place] Name Value Range Interpretation Code Description Data Mirna rce(s) Supporting Document(s) ID Date Data Source [id number] 03/15/2019 07:10:00 PM EST [facility] Reason for ordering culture: Abnormal fi ndings UAMethod of Collection:: Clean Catch Name Value Range Interpretation Code Description Data Mirna rce(s) Supporting Document(s) Color of Urine [facility] Appearance of Urine CLEAR [facility] pH of Urine by Test strip 7.0 5-8 Lewi [facility] Specific gravity of Urine by Refractometry 1.016 1.005-1.030 [facility] Leukocyte esterase [Presence] in Urine by Test strip NEGAT TRUNG [facility] Nitrite [Presence] in Urine by Test strip NEGATIVE [facility] Protein [Presence] in Urine by Test strip NEGATIVE [facility] Glucose [Mass/volume] in Urine by Automated test strip NEGATIVE NEG ATIVE [facility] Ketones [Presence] in Urine by Test strip NEGATIVE [facility] Urobilinogen [Presence] in Urine 0.2-1 EU/dl [facility] Bilirubin.total [Presence] in Urine by Automated test strip NEGATIVE [facility] Erythrocytes [#/volume] in Urine by Test strip NEGATIVE NEGATIVE [facility] URINE MICROSCOPIC? (CIF) NO [facility] ID Date Data Source [id number] 03/15/2019 06:35:00 PM EST [facility] ([facility]) Name Value Range Interpretation Code Description Data Mirna rce(s) Supporting Document(s) Color of Urine Laboratory test result [facility] ([facility]) Appearance of Urine Laboratory test result [facility] ([facility]) pH of Urine by Test strip 7.0 5-8 [facility] NT ([facility]) Specific gravity of Urine by Refractometry 1.016 1.005-1.030 [facility] ([facility]) Leukocyte esterase [Presence] in Urine by Test strip Laboratory anuel t result [facility] ([facility]) Protein [Presence] in Urine by Test strip Laboratory test result [facility] ([facility]) Nitrite [Presence] in Urine by Test strip Laboratory test result [facility] ([facility]) Glucose [Mass/volume] in Urine by Automated test strip Laborator y test result [facility] ([facility]) Ketones [Presence] in Urine by Test strip Laboratory test result [facility] ([facility]) Urobilinogen [Presence] in Urine Laboratory test result 0.2-1 [facility] ([facility]) Bilirubin.total [Presence] in Urine by Automated test strip Laboratory test result [facility] ([facility] ) Urine Microscopic? (Cif) Laboratory test result [facility] ([facility]) Erythrocytes [#/volume] in Urine by Test strip Laboratory test result [facility] ([facility]) ID Date Data Source [id number] 03/15/2019 04:37:00 PM [facility] [address] [place] [address] [phone] NAME SEX PT STATUS ACCOUNT NUMBER BERNYPETROS Adams [facility] [id number] ORDERING PHYSICIAN LOCATION MEDICAL RECORD NO. Reynold [facility] [id number] ATTENDING PHYSICIAN DATE OF DATE OF EXAM/TIME [...] findings REPORT SIGNATURE ON FILE 03/15/2019 (16:37 [place] Time ) Signed by: Sigrid Shaw M.D. Reported By Sigrid Shaw MD on 03/15/191636 Signed By Sigrid Shaw MD on 03/15 Date Time CC: Sigrid Shaw MD; Rebecca Hanks Techn: TABSA Trans Dt/Tm: Trans by: DT Prt Dt/Tm: 28: Total DLP = 0.00 mGy-cm 7523-0193: Total Radiation Dose = 0.0000 mSv Lifetime Dose: 0 mSv Name Value Range Interpretation Code Description Data Mirna rce(s) Supporting Document(s) ID Date Data Source [id number] 03/15/2019 03:39:00 PM [facility] Patient Name: PETROS HERRING : 1990 Sex: F Pt Unit #: [id number] Location:[facility] Provider: Visit Date/Time: 03/15/19 Primary Insurance: BC/BS [facility] Secondary Insurance: Self Pay Intake [...] follow up from ER last night in [place]. She did get a ct and ultrasound last night. She has r ight lower abdominal pain. She was sent home with no diagnosis. Spoke to fertility and they wanted her to follow up with us. Asset Liability Analyst Required: No Accompanied by: Friend Is patient [...] surgery (05/26/18) History of - surgery (01/20/17) [place] teeth extraction Family History Mother Hyperlipidemia Father [...] wine substance use type: does not use sarabjit/religious: Anabaptist special sarabjit needs: No seatbelt use: always helmet use: Yes drive intox or ride w/ intox buggy driver: No working smoke detector in home: [...] rce(s) Supporting Document(s) ID Date Data Source [id number] 03/14/2019 08:03:00 PM EST [facility] ([facility]) Name Value Range Interpretation Code Description Data Mirna rce(s) Supporting Document(s) Reflex Urine Culture Laboratory test result [facility] ([facility]) FULL REPORT IN LAB NOTES (eCW and [facility] ). NO GROWTH ID Date Data Source [id number] 03/14/2019 08:03:00 PM EST [facility] ([facility]) Name Value Range Interpretation Code Description Data Mirna rce(s) Supporting Document(s) Appearance, Urine RFX Laboratory test result [facility] [facility] Color, Urine RFX Laboratory test result [facility] ([facility]) PH,Urine RFX 7.0 units 5.0-9.0 [facility] ([facility]) Specific [place] Ur Auto RFX 1.006 1.002-1.035 [facility] ([facility]) Protein, Urine Auto RFX Laboratory test result [facility] ([facility]) Urobilinogen, Urine Auto RFX 0.2 mg/dL 0.0-2.0 [facility] ([facility]) Bilirubin, Urine Auto RFX Laboratory test result [facility] ([facility]) Glucose, Urine (Ua) Auto RFX Laboratory test result [facility] ([facility]) Ketone, Urine Auto RFX Laboratory test result [facility] ([facility]) Leukocyte Esterase Ur Auto RFX Laboratory test result [facility] ([facility]) Blood, Urine Blood RFX Laboratory test result [facility] ([facility]) Nitrite, Urine Auto RFX Laboratory test result [facility] ([facility]) Bacteria, Urine Auto RFX Laboratory test result [facility] ([facility]) RBC, Urine Auto RFX 1 /HPF 0-3 [facility] WBC, Urine Auto RFX 2 /HPF 0-3 [facility] ([facility]) Hyaline Cast, Urine Auto RFX 0 /LPF 0-1 M [facility] ([facility]) Squam Epithelial Cell Ur Aurfx 3 /HPF 0-6 [facility] ([facility]) ID Date Data Source [id number] 03/14/2019 06:55:00 PM EST [facility] ([facility]) Name Value Range Interpretation Code Description Data Mirna rce(s) Supporting Document(s) Choriogonadotropin.beta subunit [Moles/volume] in Seru m or Plasma Laboratory test result [facility] ([facility] ) <content>QUANTITATIVE RESULT QU ALITATIVE INTERPRETATION</content>
<content> </content>
<content><5.0 IU/L NEGATIVE</content>
<content>5.0 - 25.0 IU/L INDETERMINATE</content>
<content>>25.0 IU/L POSITIVE</content>
<content></content> ID Date Data Source [id number] 03/14/2019 06:53:00 PM EST [facility] ([facility]) Name Value Range Interpretation Code Description Data Mirna rce(s) Supporting Document(s) Laboratory test finding (navigational concept) 96 mg/dL 70-105 [facility] ([facility]) Laboratory test finding (navigational concept) 43.0 % 38.0-51.0 [facility] [facility] Laboratory test finding (navigational concept) 5.0 mg/dL 4.5-5.3 [facility] Laboratory test finding (navigational concept) 3.4 meq/L 3.5-5.1 [facility] Laboratory test finding (navigational concept) 141 meq/L 136-145 [facility] [facility] Laboratory test finding (navigational concept) 13 mg/dL 8-26 [facility] ([facility]) Laboratory test finding (navigational concept) 0.8 mg/dL 0.6-1.3 [facility] ([facility] [facility] Laboratory test finding (navigational concept) 106 meq/L 98-109 [facility] [facility] Laboratory test finding (navigational concept) 23.0 MM/L 23.0-27.0 [facility] [facility] ID Date Data Source [id number] 03/14/2019 06:47:00 PM EST [facility] ([facility] Name Value Range Interpretation Code Description Data Mirna rce(s) Supporting Document(s) Lipoprotein lipase [Enzymatic activity/volume] in Serum or P lasma 240 U/L 73-393 [facility] ([place] [facility] ID Date Data Source [id number] 03/14/2019 06:47:00 PM EST [facility] ([facility] Name Value Range Interpretation Code Description Data Mirna rce(s) Supporting Document(s) Ast/Sgot 9 U/L 7-37 [facility] ([place] [facility]) Alt/SGPT 12 U/L 12-78 [facility] ([place] [facility]) Bilirubin,Total 0.3 mg/dL 0.2-1.0 [facility] ([facility]) Alkaline Phosphatase 102 U/L 45-117 [facility] ([facility]) Albumin 4.0 GM/DL 3.2-5.2 [facility] ([place] [facility]) Albumin/Globulin Ratio 1.21 1.00-1.93 [facility] ([facility]) Total Protein 7.3 GM/DL 6.4-8.2 [facility] ([facility]) Bilirubin,Direct Laboratory test result 0.0-0.2 [facility] ([facility]) ID Date Data Source [id number] 03/14/2019 06:47:00 PM EST [facility] ([facility]) Name Value Range Interpretation Code Description Data Mirna rce(s) Supporting Document(s) Red Blood Count 4.59 10 4.00-5.40 [facility] ([facility]) Hematocrit 44.5 % 36.0-47.0 [facility] ([place] [facility]) Hemoglobin 14.2 g/dL 12.0-15.5 [facility] ([place] [facility]) White Blood Count 9.2 10 4.0-10.0 [facility] ([facility]) Mean Corpuscular Volume 96.9 fl 80.0-96.0 [facility] ([facility]) Mean Corpuscular Hemoglobin 30.9 pg 27.0-33.0 [facility] ([facility]) Mean Corpuscular HGB Conc 31.9 g/dL 32.0-36.5 [facility] NT ([facility]) Red Cell Distribution Width 11.8 % 11.5-14.5 [facility] ([facility]) Platelet Count, Automated 254 10 150-450 [facility] NT ([facility]) Neutrophils % 68.3 % 36.0-66.0 [facility] ([facility]) Lymph % 24.8 % 24.0-44.0 [facility] [facility]) Porter % 5.3 % 0.0-5.0 [facility] [facility] Eos % 1.1 % 0.0-3.0 [facility] [facility] Baso % 0.3 % 0.0-1.0 [facility] [facility] Immature Granulocyte % 0.2 % 0-3.0 [facility] ([facility]) Neutrophils # 6.3 10 1.5-8.5 [facility] ([facility]) Lymph # 2.3 10 1.5-5.0 [facility] [facility] Nucleated Red Blood Cell % 0.0 % 0-0 [facility] ([facility]) Eos # 0.1 10 0.0-0.5 [facility] [facility] Porter # 0.5 10 0.0-0.8 [facility] [facility] Baso # 0.0 10 0.0-0.2 [facility] [facility] ID Date Data Source [id number] 02/16/2019 08:28:00 AM EST [facility] ([facility]) Name Value Range Interpretation Code Description Data Mirna rce(s) Supporting Document(s) Triglyceride [Mass/volume] in Serum or Plasma 62 mg/dL 30-150 [facility] ([facility]) Cholesterol [Mass/volume] in Serum or Plasma 184 mg/dL 131-200 [facility] ([facility]) Cholesterol in HDL [Mass/volume] in Serum or Plasma 46 mg/dL 35-60 [facility] ([facility]) Cholesterol in LDL [Mass/volume] in Serum or Plasma by calcu lation 126 CALC 50-159 [facility] ([facility]) ID Date Data Source [id number] 02/16/2019 08:28:00 AM EST [facility] ([facility]) Name Value Range Interpretation Code Description Data Mirna rce(s) Supporting Document(s) Glucose [Mass/volume] in Serum or Plasma 88 mg/dL 74-99 [facility] ([facility]) 100-125 mg/dL PRE-DIABETES/FASTING >126 mg/dL DIABETES/FASTING Urea nitrogen [Mass/volume] in Serum or Plasma 12 mg/dL 7-18 [facility] ([facility]) Potassium [Moles/volume] in Serum or Plasma 3.9 meq/L 3.5-5.1 [facility] ([facility]) Sodium [Moles/volume] in Serum or Plasma 144 meq/L 136-145 [facility] ([facility]) Creatinine 0.9 mg/dL 0.6-1.3 [facility] Calcium [Mass/volume] in Serum or Plasma 9.3 mg/dL 8.5-10.1 [facility] ([facility]) Chloride [Moles/volume] in Serum or Plasma 109 meq/L 98-107 [facility] ([facility]) Alkaline phosphatase isoenzyme [Units/volume] in Serum or Pl asma 103 mg/dL 46-116 [facility] ([facility]) Carbon dioxide, total [Moles/volume] in Serum or Plasma 27 meq/L 21 -32 [facility] ([facility] [facility]) Total Bilirubin 0.5 mg/dL 0.2-1.0 [facility] ([facility]) Aspartate aminotransferase [Enzymatic activity/volume] in Serum or Plasma 11 U/L 15-37 [facility] ([facility] ) Alanine aminotransferase [Enzymatic activity/volume] in Seru m or Plasma 17 U/L 12-78 [facility] ([facility] [facility]) Glomerular filtration rate/1.73 sq M pre dicted among non-blacks [Volume Rate/Area] in Serum or Plasma by Creatinine-based formula (MDRD) >= 60 mL/min [facility] ([facility]) Albumin [Mass/volume] in Serum or Plasma 4.0 g/dL 3.4-5.0 [facility] ([facility]) A/G Ratio 1.29 CALC 1.00-1.90 [facility] ([place] [facility]) Proteinase 3 Ab [Units/volume] in Serum 7.1 g/dL 6.4-8.2 [facility] ([facility]) Glomerular filtration rate/1.73 sq M pre dicted among blacks [Volume Rate/Area] in Serum or Plasma by Creatinine-based formula (MDRD) >= 60 mL/min [facility] ([place] [facility] <content>CHRONIC KIDNEY DISEASE STAGING PER NKF</content>
<content></content>
<content>STAGE I & II GFR >= 60 NORMAL TO MILDLY DECREASED</content>
<content>STAGE III GFR 30-59 MODERATELY DECREASED</content>
<content>STAGE IV GFR 15-29 SEVERELY DECREASED</content>
<content>STAGE V GFR <15 VERY LITTLE GFR LEFT</content>
<content>ESRD GFR <15 ON TECHNICAL SALES ASSOCIATE</content>
<content></content> ID Date Data Source [id number] 02/16/2019 08:28:00 AM EST [facility] ([facility]) Name Value Range Interpretation Code Description Data Mirna rce(s) Supporting Document(s) Erythrocytes [#/volume] in Blood by Automated count 4.64 x10*6/UL 4.2 0-6.30 [facility] ([place] [facility] Hemoglobin [Mass/volume] in Blood 14.4 g/dL 12.0-18.0 [facility] ([place] [facility] Leukocytes [#/volume] in Blood by Automated count 7.0 x10*3/UL 4.1-10 .9 [facility] [facility]) MCH 30.9 pg 26.0-32.0 [facility] ([facility]) MCV 91.7 fL 80.0-97.0 [facility] ([facility]) Hematocrit [Volume Fraction] of Blood by Automated count 42.6 % 3 7.0-51.0 [facility] ([place] [facility] MPV 8.5 FL 7.8-11.0 [facility] ([facility]) MCHC 33.7 g/dL 31.0-38.0 [facility] ([facility]) Erythrocyte distribution width [Ratio] by Automated count 11.8 % 11.6-13.7 [facility] ([facility]) Platelets [#/volume] in Blood by Automated count 280 x10*3/UL 140-440 [facility] ([facility]) Mid % 8.1 % 1.7-9.3 [facility] Neut % 60.6 % 37.0-92.0 [facility] Lymph % 31.3 % 10.0-58.5 [facility] ([facility] Lymph # 2.2 x10*3/UL 0.6-4.1 [facility] ([facility]) Neut # 4.2 x10*3/UL 2.0-7.8 [facility] ([facility]) Mid # 0.6 x10*3/UL 0.1-0.6 [facility] ([facility]) Procedure Social History Code Duration Value Status Description Data Source(s ) Alcohol intake 11/14/2019 12:00:00 AM EDT Current drinker of al cohol (finding) completed Current drinker of alcohol (finding) [facility] Tobacco use and exposure 11/14/2019 12:00:00 AM EDT Never used co mpleted Never used [facility] Smoking 11/14/2019 12:00:00 AM EDT Never smoker completed Never [facility] 03/20/2019 05:29:00 PM EST Never smoker completed Never [facility] Smoking 03/20/2019 05:29:00 PM EST Never smoker completed Never [facility] 03/20/2019 05:29:00 PM EST Never smoker completed Never [facility] Smoking 03/20/2019 05:29:00 PM EST Never smoker completed Never [facility] 03/20/2019 05:29:00 PM EST Never smoker completed Never [facility] 03/20/2019 05:29:00 PM EST Never smoker completed Never [facility] 03/20/2019 05:29:00 PM EST Never smoker completed Never [facility] Smoking 03/20/2019 05:29:00 PM EST Never smoker completed Never [facility] 03/20/2019 05:29:00 PM EST Never smoker completed Never [facility] Smoking 03/20/2019 05:29:00 PM EST Never smoker completed Never [facility] Smoking 03/20/2019 04:29:00 PM EST Never smoker completed Never s [facility] Smoking 03/20/2019 04:29:00 PM EST Never smoker completed Never s [facility] 03/20/2019 11:55:00 AM EST Never smoker completed Never s [facility] Smoking 03/20/2019 11:55:00 AM EST Never smoker completed Never s [facility] 03/20/2019 11:53:22 AM EST No completed No [facility] 03/20/2019 11:53:22 AM EST No completed No [facility] 03/20/2019 11:53:22 AM EST No completed No [facility] 03/20/2019 11:53:22 AM EST No completed No [facility] 03/20/2019 11:53:22 AM EST No completed No [facility] 03/20/2019 11:53:22 AM EST No completed No [facility] 03/17/2019 12:13:00 PM EST Never smoker completed Never s [facility] 03/17/2019 12:13:00 PM EST Never smoker completed Never s [facility] 03/17/2019 12:13:00 PM EST Never smoker completed Never s [facility] 03/17/2019 12:13:00 PM EST Never smoker completed Never s [facility] 03/17/2019 12:13:00 PM EST Never smoker completed Never s [facility] Smoking 03/17/2019 12:13:00 PM EST Never smoker completed Never s [facility] 03/15/2019 06:47:11 PM EST Never smoker completed Never s [facility] 03/15/2019 06:47:11 PM EST Never smoker completed Never s [facility] 03/15/2019 06:47:11 PM EST Never smoker completed Never s [facility] 03/15/2019 06:47:11 PM EST Never smoker completed Never s [facility] 03/15/2019 06:47:11 PM EST Never smoker completed Never s [facility] 03/15/2019 06:47:11 PM EST Never smoker completed Never s [facility] Smoking 03/15/2019 06:47:00 PM EST Never smoker completed Never s [facility] Vital Signs ID Date Data Source UNK Name Value Range Interpretation Code Description Data Source(s) Body mass index (BMI) [Ratio] 29.3 kg/m2 29.3 k g/m2 [facility], [facility]) Body height 60 [in_i] 60 [in_i] [facility] ([facility], [facility]) 5'0" Body weight 150.00 [lb_av] 150.00 [lb_av] [facility] ([facility], [facility]) Body temperature 98.9 [degF] 98.9 [degF] [facility] ([facility], [facility]) Oxygen saturation in Arterial blood by Pulse oximetry 98 % 98 % [facility] ([facility], [facility]) Respiratory rate 16 /min 16 /min [facility] ( [facility], [facility]) Heart rate 93 /min 93 /min [facility] ([facility], [facility]) Diastolic blood pressure 76 mm[Hg] 76 mm[Hg] [facility] ([facility], [facility]) Systolic blood pressure 107 mm[Hg] 107 mm[Hg] [facility], [facility]) Body mass index (BMI) [Ratio] 29.7 kg/m2 29.7 k g/m2 [facility] ([facility]) Body weight 152.00 [lb_av] 152.00 [lb_av] [facility] ([facility]) Body height 60 [in_i] 60 [in_i] [facility] ([facility]) 5'0" Body mass index (BMI) [Ratio] 26.8 kg/m2 26.8 k g/m2 [facility] ([facility], [facility]) Body height 60 [in_i] 60 [in_i] [facility] ([facility], [facility]) 5'0" Body weight 137.00 [lb_av] 137.00 [lb_av] [facility] ([facility], [facility]) Body temperature 98.2 [degF] 98.2 [degF] [facility] ([facility], [facility]) Oxygen saturation in Arterial blood by Pulse oximetry 98 % 98 % [facility] ([facility], [facility]) Respiratory rate 12 /min 12 /min [facility] ( [facility], [facility]) Heart rate 75 /min 75 /min [facility] ([facility], [facility]) Diastolic blood pressure 80 mm[Hg] 80 mm[Hg] [facility] ([facility], [facility]) Systolic blood pressure 120 mm[Hg] 120 mm[Hg] [facility], [facility]) Body mass index (BMI) [Ratio] 27.3 kg/m2 27.3 k g/m2 [facility] ([facility]) Oxygen saturation in Arterial blood by Pulse oximetry 99 % 99 % [facility] ([facility]) RM Air Body weight 140.00 [lb_av] 140.00 [lb_av] [facility] ([facility]) Body height 60 [in_i] 60 [in_i] [facility] ([facility]) 5'0" Heart rate 70 /min 70 /min [facility] ([facility]) Diastolic blood pressure 70 mm[Hg] 70 mm[Hg] [facility] ([facility]) Systolic blood pressure 114 mm[Hg] 114 mm[Hg] [facility] ([facility]) Body mass index (BMI) [Ratio] 26.0 kg/m2 26.0 k g/m2 [facility] ([facility]) Oxygen saturation in Arterial blood by Pulse oximetry 98 % 98 % [facility] ([facility]) RM Air Body weight 133.00 [lb_av] 133.00 [lb_av] [facility] ([facility]) Body height 60 [in_i] 60 [in_i] [facility] ([facility]) 5'0" Heart rate 88 /min 88 /min [facility] ([facility]) Diastolic blood pressure 80 mm[Hg] 80 mm[Hg] [facility] ([facility]) Systolic blood pressure 120 mm[Hg] 120 mm[Hg] [facility] ([facility]) ID Date Data Source [id number] 11/24/2019 03:22:18 PM [facility] Name Value Range Interpretation Code Description Data Source(s) WEIGHT RECORDED 137.6 lb 137.6 lb [facility] Body height Measured 60 in 60 in [facility] Patient Treatment Plan of Care Planned Activity Planned Date Details Description Data Source (s) drospirenone 3 MG / Ethinyl Estradiol 0.03 MG Oral Tab let 09/01/2019 12:00:00 AM EDT [facility]
[2020-04-05 11:55] LABS: BASO % 0.6 % (0.0-1.0); EOS # 0.2 10^3/uL (0.0-0.5); EOS % 3.9 % (0.0-3.0); HEMATOCRIT 42.4 % (36.0-47.0); HEMOGLOBIN 13.7 g/dl (12.0-15.5); LYMPH # 1.4 10^3/uL (1.5-5.0); LYMPH % 26.4 % (24.0-44.0); MEAN CORPUSCULAR HEMOGLOBIN 30.6 pg (27.0-33.0); MEAN CORPUSCULAR HGB CONC 32.3 g/dl (32.0-36.5); MEAN CORPUSCULAR VOLUME 94.6 fl (80.0-96.0); MONO # 0.6 10^3/uL (0.0-0.8); MONO % 10.8 % (0.0-5.0); NEUTROPHILS # 3.1 10^3/uL (1.5-8.5); NEUTROPHILS % 58.1 % (36.0-66.0); PLATELET COUNT, AUTOMATED 262 10^3/uL (150-450); RED BLOOD COUNT 4.48 10^6/uL (4.00-5.40); WHITE BLOOD COUNT 5.4 10^3/uL (4.0-10.0)
--- NOTE | 2020-04-05 12:06 | REP ---
INDICATION: CHEST PAIN. COMPARISON: 12/15/2010. TECHNIQUE: SINGLE PORTABLE AP VIEW OF THE CHEST WAS PERFORMED. FINDINGS: THERE IS NO ACUTE INFILTRATE OR PULMONARY EDEMA. LUNGS ARE CLEAR. HEART IS NOT SIGNIFICANTLY ENLARGED. MEDIASTINAL SILHOUETTE IS UNREMARKABLE. THE VISUALIZED OSSEOUS STRUCTURES ARE INTACT. IMPRESSION: NO ACUTE PULMONARY DISEASE. <Electronically signed by Norm Cam > 04/05/20 [id number]
[2020-04-05 12:28] LABS: ALBUMIN 3.4 GM/DL (3.2-5.2); ALT/SGPT 19 U/L (12-78); BILIRUBIN,DIRECT 0.1 MG/DL (0.0-0.2); BILIRUBIN,TOTAL 0.3 MG/DL (0.2-1.0); BLOOD UREA NITROGEN 9 MG/DL (7-18); CALCIUM LEVEL 9.4 MG/DL (8.5-10.1); CARBON DIOXIDE LEVEL 28 MEQ/L (21-32); CHLORIDE LEVEL 111 MEQ/L (98-107); CK-MB VALUE MASS < 1.0 NG/ML (<3.6); CPK CREATINE PHOSPHOKINASE 51 U/L (26-192); CREATININE FOR GFR 0.68 MG/DL (0.55-1.30); GLOMERULAR FILTRATION RATE > 60.0 (>60); GLUCOSE, FASTING 80 MG/DL (70-100); LIPASE 138 U/L (73-393); MB/CK RELATIVE INDEX 1.96 (< OR =4); POTASSIUM SERUM 3.6 MEQ/L (3.5-5.1); SODIUM LEVEL 143 MEQ/L (136-145); TOTAL PROTEIN 6.9 GM/DL (6.4-8.2); TROPONIN I < 0.02 NG/ML (< 0.10)
[2020-04-05 12:45] VITALS: BP 120/86
[2020-04-05] MEDS ORDERED: ISOVUE-370 76% 100ML VIAL As Ordered ONE (12:51)
--- NOTE | 2020-04-05 13:18 | REP ---
INDICATION: pleuritic chest pain. COMPARISON: Comparison chest CT 11 September 2019.. TECHNIQUE: Contrast dose: 75 ML of Isovue [address] technique: Helical scanning is acquired and overlapping 1.5 mm and contiguous 3 mm axial images are reformatted. In addition, maximum intensity projection and multiplanar re-formation images are generated in sagittal and coronal imaging projections. FINDINGS: There is good opacification in the pulmonary arterial tree. There is no evidence of vessel cut off or filling defect to suggest pulmonary embolus. Homogeneous opacity is seen in the thoracic aorta. There is no evidence of aneurysm or dissection. Lung window settings demonstrate no evidence of infiltrate, mass, or atelectasis. No pleural or pericardial effusion is seen. No hilar or mediastinal mass or adenopathy is observed. In the upper abdomen, normal adrenal glands. Post cholecystectomy clips are noted. There is a tiny 2 mm cyst in the tail of the pancreas unchanged from comparison study 14 March 2019. Visualized upper abdominal structures are otherwise unremarkable. No rib fracture or bony destructive lesion is seen. IMPRESSION: No CT evidence of pulmonary embolus. No active cardiopulmonary disease. <Electronically signed by Myke Harp > 04/05/20 [id number]
[2020-04-05 13:50] VITALS: O2SAT 100
[2020-04-05 13:51] LABS: CK-MB VALUE MASS < 1.0 NG/ML (<3.6); CPK CREATINE PHOSPHOKINASE 40 U/L (26-192); TROPONIN I < 0.02 NG/ML (< 0.10)
--- NOTE | 2020-04-05 19:51 | ECGEPIP ---
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
--- NOTE | 2020-04-05 20:10 | ECGEPIP ---
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
== END 2020-04-05 14:39 | disposition home or self-care (01) ==
LOC: M ED 11:20
DX: R07.9 Chest pain, unspecified (principal); R61 Generalized hyperhidrosis; R06.02 Shortness of breath; R07.1 Chest pain on breathing; Z79.899 Other long term (current) drug therapy; Z88.2 Allergy status to sulfonamides; Z88.5 Allergy status to narcotic agent
CPT/HCPCS: 71045; 71275; 80053; 82248; 82550; 82553; 83690; 84484; 85025; 93005; 93041; 94760; 99285; Q9967

== ENCOUNTER → 2020-06-06 | Outpatient (REF) | payer MEDICAID ==
[~2020-06-06] MED LIST changes: +PHEN15CA
[2020-06-06 17:34] LABS: BASO # 0.1 10^3/uL (0.0-0.2); BASO % 0.5 % (0.0-1.0); EOS # 0.1 10^3/uL (0.0-0.5); EOS % 1.4 % (0.0-3.0); HEMATOCRIT 45.1 % (36.0-47.0); HEMOGLOBIN 14.4 g/dl (12.0-15.5); LYMPH # 2.8 10^3/uL (1.5-5.0); LYMPH % 30.7 % (24.0-44.0); MEAN CORPUSCULAR HEMOGLOBIN 30.8 pg (27.0-33.0); MEAN CORPUSCULAR HGB CONC 31.9 g/dl (32.0-36.5); MEAN CORPUSCULAR VOLUME 96.6 fl (80.0-96.0); MONO # 0.4 10^3/uL (0.0-0.8); MONO % 4.6 % (2.0-8.0); NEUTROPHILS # 5.7 10^3/uL (1.5-8.5); NEUTROPHILS % 62.5 % (36.0-66.0); PLATELET COUNT, AUTOMATED 307 10^3/uL (150-450); RED BLOOD COUNT 4.67 10^6/uL (4.00-5.40); WHITE BLOOD COUNT 9.2 10^3/uL (4.0-10.0)
== END ==
LOC: M LAB REF 16:24
PROVIDERS: ATTEND Nurse Practitioner Adult Health
DX: G43.901 Migraine, unspecified, not intractable, with status migrainosus (principal); Z11.1 Encounter for screening for respiratory tuberculosis

== ENCOUNTER 2020-08-09 16:31 | Emergency (ER) | payer MEDICAID, OTHER ==
[~2020-08-09] VITALS: Ht 152.4 cm; Wt 78.1 kg
[2020-08-09] MEDS ORDERED: NS 1,000 ML IV ONE (19:30)
[2020-08-09 19:48] LABS: BASO # 0.1 10^3/uL (0.0-0.2); BASO % 0.5 % (0.0-1.0); EOS # 0.2 10^3/uL (0.0-0.5); EOS % 1.3 % (0.0-3.0); HEMATOCRIT 46.3 % (36.0-47.0); HEMOGLOBIN 15.1 g/dl (12.0-15.5); LYMPH # 3.8 10^3/uL (1.5-5.0); LYMPH % 26.6 % (24.0-44.0); MEAN CORPUSCULAR HEMOGLOBIN 30.6 pg (27.0-33.0); MEAN CORPUSCULAR HGB CONC 32.6 g/dl (32.0-36.5); MEAN CORPUSCULAR VOLUME 93.7 fl (80.0-96.0); MONO # 0.8 10^3/uL (0.0-0.8); MONO % 5.8 % (2.0-8.0); NEUTROPHILS # 9.3 10^3/uL (1.5-8.5); NEUTROPHILS % 65.2 % (36.0-66.0); PLATELET COUNT, AUTOMATED 321 10^3/uL (150-450); RED BLOOD COUNT 4.94 10^6/uL (4.00-5.40); WHITE BLOOD COUNT 14.3 10^3/uL (4.0-10.0)
--- NOTE | 2020-08-09 20:01 | ECGEPIP ---
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
[2020-08-09 20:20] LABS: HCG, SERUM QUALITATIVE NEGATIVE (NEGATIVE)
[2020-08-09 20:26] LABS: ALT/SGPT 23 U/L (12-78); BILIRUBIN,DIRECT 0.1 MG/DL (0.0-0.2); BILIRUBIN,TOTAL 0.3 MG/DL (0.2-1.0); BLOOD UREA NITROGEN 12 MG/DL (7-18); CALCIUM LEVEL 9.4 MG/DL (8.5-10.1); CARBON DIOXIDE LEVEL 23 MEQ/L (21-32); CHLORIDE LEVEL 109 MEQ/L (98-107); CK-MB VALUE MASS < 1.0 NG/ML (<3.6); CPK CREATINE PHOSPHOKINASE 65 U/L (26-192); CREATININE FOR GFR 0.83 MG/DL (0.55-1.30); FREE T4 0.86 NG/DL (0.76-1.46); GLOMERULAR FILTRATION RATE > 60.0 (>60); GLUCOSE, FASTING 89 MG/DL (70-100); MB/CK RELATIVE INDEX 1.54 (< OR =4); NT-PRO BNP 14 PG/ML (<125); POTASSIUM SERUM 4.2 MEQ/L (3.5-5.1); SODIUM LEVEL 141 MEQ/L (136-145); TOTAL PROTEIN 8.2 GM/DL (6.4-8.2); TROPONIN I < 0.02 NG/ML (< 0.10)
[2020-08-09] MEDS ORDERED: PANTOPRAZOLE 40MG VIAL (C9113 PER 1) IV ONE (20:50)
[2020-08-09 21:10] LABS: INR 0.92; PROTHROMBIN TIME 12.6 SECONDS (12.5-14.3)
[2020-08-09 21:13] LABS: D-DIMER QUANT 413.7 ng/ml (<500)
--- NOTE | 2020-08-09 22:12 | REPVR ---
PROCEDURE INFORMATION: Exam: XR Chest Exam date and time: 08/09/2020 9:14 PM Age: 30 years old Clinical indication: Other: Chest pain TECHNIQUE: Imaging protocol: XR of the chest. Views: 1 view. COMPARISON: CA PORTABLE CHEST X-RAY 04/05/2020 11:57 AM FINDINGS: Lungs: There is decreased inflation of the lungs. There are no interval infiltrates. Pleural spaces: Unremarkable. No pleural effusion. No pneumothorax. Heart/Mediastinum: The heart and mediastinum are unchanged. Bones/joints: Unremarkable. IMPRESSION: Negative poor inspiratory chest without change from 04/05/2020. Electronically signed by: Clayton Enciso On 08/09/2020 22:12:19 PM
[2020-08-09 23:00] VITALS: BP 119/72
[2020-08-10 00:05] LABS: CK-MB VALUE MASS < 1.0 NG/ML (<3.6); CPK CREATINE PHOSPHOKINASE 53 U/L (26-192); MB/CK RELATIVE INDEX 1.89 (< OR =4); TROPONIN I < 0.02 NG/ML (< 0.10)
--- NOTE | 2020-08-12 16:27 | ECGEPIP ---
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
== END 2020-08-10 00:48 | disposition home or self-care (01) ==
LOC: M ED 16:31
DX: R07.89 Other chest pain (principal); Z79.899 Other long term (current) drug therapy; Z82.49 Family history of ischemic heart disease and other diseases of the circulatory system; Z88.5 Allergy status to narcotic agent; Z88.2 Allergy status to sulfonamides
CPT/HCPCS: 71045; 80048; 80076; 82550; 82553; 83880; 84439; 84443; 84703; 85025; 85379; 85610; 85730; 93005; 93041; 94760; 96374; 99285; C9113

== ENCOUNTER → 2020-09-20 | Outpatient (CLI) | payer OTHER ==
[~2020-09-20] MED LIST changes: +ISOVUE-370 76% 100ML VIAL As Ordered ONE
--- NOTE | 2020-09-20 18:13 | REPVR ---
PROCEDURE INFORMATION: Exam: CT Abdomen With Contrast Exam date and time: 09/20/2020 5:26 PM Age: 30 years old Clinical indication: Abdominal pain; Flank; Right upper quadrant (ruq); Additional info: RT flank pain TECHNIQUE: Imaging protocol: Computed tomography images of the abdomen with intravenous contrast. Axial, coronal and sagittal reformatted images were created and reviewed. Radiation optimization: All CT scans at this facility use at least one of these dose optimization techniques: automated exposure control; mA and/or kV adjustment per patient size (includes targeted exams where dose is matched to clinical indication); or iterative reconstruction. Contrast material: ISOVUE 370; Contrast volume: 100 ml; Contrast route: INTRAVENOUS (IV); COMPARISON: CT ABD/PEL W/IV ORAL CONTRAS 03/14/2019 9:45 PM FINDINGS: Liver: Mild hepatic steatosis. 6 mm low-density lesion in the right hepatic lobe, too small to characterize. Gallbladder and bile ducts: Status post cholecystectomy. No biliary ductal dilatation. Pancreas: Normal. No ductal dilation. Spleen: Normal. No splenomegaly. Adrenals: Normal. No mass. Kidneys and ureters: Normal. No hydronephrosis. Stomach and bowel: Visualized stomach and bowel are unremarkable. No obstruction. No mucosal thickening. Intraperitoneal space: Unremarkable. No free air. No significant fluid collection. Lymph nodes: Unremarkable. No enlarged lymph nodes. Vasculature: Unremarkable. No abdominal aortic aneurysm. Bones/joints: Unremarkable. No acute fracture. No dislocation. Soft tissues: Small, fat containing umbilical hernia. IMPRESSION: 1. No CT evidence of acute intra-abdominal pathology. 2. Additional findings, as above. Electronically signed by: Chi Nelson On 09/20/2020 18:12:28 PM
== END ==
LOC: M RAD 17:02
PROVIDERS: ATTEND Obstetrics & Gynecology
DX: R10.31 Right lower quadrant pain (principal); K76.0 Fatty (change of) liver, not elsewhere classified; K76.89 Other specified diseases of liver
CPT/HCPCS: 74160; Q9967

== ENCOUNTER → 2020-11-08 | Outpatient (REF) | payer OTHER ==
[~2020-11-08] MED LIST changes: -ISOVUE-370 76% 100ML VIAL As Ordered ONE
== END ==
LOC: M LAB REF 16:24
PROVIDERS: ATTEND Nurse Practitioner Adult Health
DX: N91.2 Amenorrhea, unspecified (principal)

== ENCOUNTER → 2020-11-13 | Outpatient (CLI) | payer OTHER | LOC: M LAB 17:37 | PROVIDERS: ATTEND Nurse Practitioner Adult Health | DX: N91.2 Amenorrhea, unspecified (principal) ==

== ENCOUNTER → 2020-11-20 | Outpatient (REF) | payer OTHER | LOC: M LAB REF 16:20 | PROVIDERS: ATTEND Nurse Practitioner Adult Health | DX: Z34.90 Encounter for supervision of normal pregnancy, unspecified, unspecified trimester (principal); N91.2 Amenorrhea, unspecified ==

== ENCOUNTER 2021-04-14 19:12 | Observation (INO) | payer BC, OTHER ==
[~2021-04-14] VITALS: Ht 152.4 cm; Wt 78.6 kg
[~2021-04-14 19:12] MED LIST changes: +ACET-907 PO; +OMEP40CA4 PO; -PHEN15CA; +PHEN15CA6; +PRENTAB9 PO
[2021-04-14] MEDS ORDERED: ACETAMINOPHEN TAB 650MG DOSE (2X325MG) PO ONE (22:15)
[2021-04-14] MEDS ORDERED: PERCOCET 5MG/325MG TAB PO ONE (22:30)
[2021-04-14] MEDS ORDERED: UNIS25TA5 PO (23:56)
[2021-04-14] MEDS ORDERED: OMEP1CAP73 PO (23:56)
[2021-04-15] MEDS ORDERED: HOME MED LIST COMPLETE! XX SCH
[2021-04-15] MEDS ORDERED: SLF 3 ML SYR IV PRN (02:20)
[2021-04-15 03:18] VITALS: BP 119/73
[2021-04-15] MEDS: PERCOCET 5MG/325MG TAB PO PRN ×4 (04:36→23:32)
[2021-04-15] MEDS: SLF 3 ML SYR IV SCH ×3 (04:36→20:20)
[2021-04-15 06:00] VITALS: BP 112/62
[2021-04-15 09:54] VITALS: BP_SYST 128; BP_SYST 131; BP_DIAS 60; BP_DIAS 75
[2021-04-15] MEDS: OMEPRAZOLE 20MG CAP PO SCH (11:36)
[2021-04-15] MEDS: MORPHINE 4 MG/ML 1ML VIAL/SYRINGE IV PRN ×2 (14:52→21:52)
[2021-04-15 18:00] VITALS: BP 113/72
[2021-04-15] MEDS: DOCUSATE SODIUM 100MG CAPSULE PO PRN (20:20)
[2021-04-16] VITALS (7 sets, daily range): BP systolic 113–125; BP diastolic 59–84
[2021-04-16] MEDS: PERCOCET 5MG/325MG TAB PO PRN ×2 (05:49→19:07)
[2021-04-16] MEDS: SLF 3 ML SYR IV SCH ×3 (05:50→21:16)
[2021-04-16] MEDS: MORPHINE 4 MG/ML 1ML VIAL/SYRINGE IV PRN ×3 (06:29→21:16)
[2021-04-16] MEDS: OMEPRAZOLE 20MG CAP PO SCH (08:45)
[2021-04-16] MEDS ORDERED: propofoL 200 MG/20 ML VIAL As Ordered ONE ×2 (13:46→16:29)
[2021-04-16] MEDS ORDERED: LIDOCAINE 2% 100MG/5ML SDV (FOR ANES.) As Ordered ONE (13:46)
[2021-04-16] MEDS ORDERED: LIDOCAINE 1% MDV 20ML VIAL XX ONE (13:50)
[2021-04-16] MEDS ORDERED: fentaNYL 100 MCG/2 ML INJECTION IV ONE (13:50)
[2021-04-16] MEDS ORDERED: ROPIvacaine 0.5% 30ML INJECTION (J2795 PER 1MG) XX ONE (13:50)
[2021-04-16] MEDS ORDERED: BUPIVACAINE HCL 0.25% 30ML VIAL As Ordered ONE (14:27)
[2021-04-16] MEDS ORDERED: fentaNYL 100 MCG/2 ML INJECTION As Ordered ONE (14:53)
[2021-04-16] MEDS ORDERED: PHENYLephrine 500MCG 5ML (100MCG/ML) SYRINGE As Ordered ONE (15:14)
[2021-04-16] MEDS ORDERED: ceFAZolin 2 GM/D5W 50 ML IV BAG (J0690 PER 500MG) As Ordered ONE (15:16)
[2021-04-16] MEDS ORDERED: LR 1,000 ML IV SCH (16:55)
[2021-04-16] MEDS ORDERED: fentaNYL 100 MCG/2 ML INJECTION IV PRN (16:55)
[2021-04-16] MEDS ORDERED: ONDANSETRON 4MG/2ML VIAL IV PRN (16:55)
[2021-04-16] MEDS: CALCIUM CARBONATE 500 MG CHEW U/D PO PRN (19:07)
[2021-04-17] MEDS: PERCOCET 5MG/325MG TAB PO PRN ×4 (00:29→17:24)
[2021-04-17] MEDS: MORPHINE 4 MG/ML 1ML VIAL/SYRINGE IV PRN ×4 (00:38→15:40)
[2021-04-17] MEDS: ceFAZolin SOD 1 GM in D5W MINI-BAG PLUS 50 ML IV SCH ×3 (01:02→15:41)
[2021-04-17 02:00] VITALS: BP 115/69
[2021-04-17 06:00] VITALS: BP 105/63
[2021-04-17] MEDS: SLF 3 ML SYR IV SCH ×3 (06:36→21:55)
[2021-04-17] MEDS: OMEPRAZOLE 20MG CAP PO SCH (09:01)
[2021-04-17] MEDS: ENOXAPARIN 40MG/0.4ML SYRINGE (J1650 PER 10MG) SC SCH (09:02)
[2021-04-17] MEDS: DOCUSATE SODIUM 100MG CAPSULE PO PRN ×2 (09:11→21:55)
[2021-04-17] MEDS: CALCIUM CARBONATE 500 MG CHEW U/D PO PRN (09:11)
[2021-04-17 10:00] VITALS: BP 110/66
[2021-04-17 14:00] VITALS: BP 112/86
[2021-04-18] MEDS: PERCOCET 5MG/325MG TAB PO PRN ×3 (02:26→14:20)
[2021-04-18 06:00] VITALS: BP 94/65
[2021-04-18] MEDS: SLF 3 ML SYR IV SCH ×2 (06:41→14:00)
[2021-04-18] MEDS: DOCUSATE SODIUM 100MG CAPSULE PO PRN (08:10)
[2021-04-18] MEDS: OMEPRAZOLE 20MG CAP PO SCH (08:11)
[2021-04-18] MEDS: ENOXAPARIN 40MG/0.4ML SYRINGE (J1650 PER 10MG) SC SCH (08:12)
[2021-04-18] MEDS ORDERED: LOVE1INJ SC (10:44)
[2021-04-18] MEDS ORDERED: PERCOCET PO (10:44)
== END 2021-04-18 17:00 | disposition home or self-care (01) ==
LOC: M ED 19:12 → INTOOBSV 22:50 → M ED INP 22:50 → M OBS 04-15 03:09 → M MS5PR 04-16 17:20
PROVIDERS: ADMIT Specialist; ATTEND Specialist
DX: O9A.212 Injury, poisoning and certain other consequences of external causes complicating pregnancy, second trimester (principal); S82.62XA Displaced fracture of lateral malleolus of left fibula, initial encounter for closed fracture; W01.0XXA Fall on same level from slipping, tripping and stumbling without subsequent striking against object, initial encounter; Y92.512 Supermarket, store or market as the place of occurrence of the external cause; Y93.89 Activity, other specified; Y99.8 Other external cause status; Z3A.26 26 weeks gestation of pregnancy; Z79.899 Other long term (current) drug therapy; Z79.01 Long term (current) use of anticoagulants; Z88.2 Allergy status to sulfonamides; Z88.5 Allergy status to narcotic agent
CPT/HCPCS: 27792; 64450; 73610; 76000; 87798; 96372; 96374; 96375; 96376; 97116; 97161; 97162; 97530; 99284; C1713; J0690; J1650; J2270; J2370; J3010

== ENCOUNTER → 2021-04-23 | Outpatient (CLI) | payer BC ==
[~2021-04-23] MED LIST changes: +LOVE1INJ SC; +OMEP1CAP73 PO; +PERCOCET PO; +UNIS25TA5 PO
== END ==
LOC: M SOG 09:07
PROVIDERS: ATTEND Orthopaedic Surgery Hand Surgery
DX: Z48.89 Encounter for other specified surgical aftercare (principal)

== ENCOUNTER → 2021-05-15 | Outpatient (CLI) | payer BC ==
[2021-05-15 17:58] LABS: BASO % 0.2 % (0.0-1.0); EOS # 0.1 10^3/uL (0.0-0.5); EOS % 0.6 % (0.0-3.0); HEMATOCRIT 35.8 % (36.0-47.0); HEMOGLOBIN 11.5 g/dl (12.0-15.5); LYMPH % 15.9 % (24.0-44.0); MEAN CORPUSCULAR HEMOGLOBIN 30.7 pg (27.0-33.0); MEAN CORPUSCULAR HGB CONC 32.1 g/dl (32.0-36.5); MEAN CORPUSCULAR VOLUME 95.7 fl (80.0-96.0); MONO # 0.7 10^3/uL (0.0-0.8); MONO % 5.2 % (2.0-8.0); NEUTROPHILS % 77.6 % (36.0-66.0); PLATELET COUNT, AUTOMATED 267 10^3/uL (150-450); RED BLOOD COUNT 3.74 10^6/uL (4.00-5.40); WHITE BLOOD COUNT 12.8 10^3/uL (4.0-10.0)
== END ==
LOC: M PLALAB 13:16
PROVIDERS: ATTEND Obstetrics & Gynecology
DX: Z36.89 Encounter for other specified antenatal screening (principal); Z3A.28 28 weeks gestation of pregnancy

== ENCOUNTER → 2021-05-29 | Outpatient (CLI) | payer BC | LOC: M LAB 08:20 | PROVIDERS: ATTEND Obstetrics & Gynecology | DX: R73.09 Other abnormal glucose (principal) ==

== ENCOUNTER → 2021-05-30 | Outpatient (CLI) | payer BC | LOC: M SOG 14:50 | PROVIDERS: ATTEND Physician Assistant | DX: S82.62XD Displaced fracture of lateral malleolus of left fibula, subsequent encounter for closed fracture with routine healing (principal); W18.30XD Fall on same level, unspecified, subsequent encounter ==

== ENCOUNTER → 2021-06-12 | Outpatient (CLI) | payer BC ==
[2021-06-12 15:18] LABS: HEMATOCRIT 36.5 % (36.0-47.0); HEMOGLOBIN 11.6 g/dl (12.0-15.5); MEAN CORPUSCULAR HEMOGLOBIN 30.1 pg (27.0-33.0); MEAN CORPUSCULAR HGB CONC 31.8 g/dl (32.0-36.5); MEAN CORPUSCULAR VOLUME 94.6 fl (80.0-96.0); PLATELET COUNT, AUTOMATED 245 10^3/uL (150-450); RED BLOOD COUNT 3.86 10^6/uL (4.00-5.40); WHITE BLOOD COUNT 12.1 10^3/uL (4.0-10.0)
[2021-06-12 15:26] LABS: ALBUMIN 2.5 GM/DL (3.2-5.2); ALT/SGPT 12 U/L (12-78); BILIRUBIN,TOTAL 0.3 MG/DL (0.2-1.0); BLOOD UREA NITROGEN 6 MG/DL (7-18); CALCIUM LEVEL 9.1 MG/DL (8.5-10.1); CARBON DIOXIDE LEVEL 22 MEQ/L (21-32); CHLORIDE LEVEL 108 MEQ/L (98-107); CREATININE FOR GFR 0.63 MG/DL (0.55-1.30); GLOMERULAR FILTRATION RATE > 60.0 (>60); GLUCOSE, FASTING 108 MG/DL (70-100); POTASSIUM SERUM 4.2 MEQ/L (3.5-5.1); SODIUM LEVEL 140 MEQ/L (136-145); TOTAL PROTEIN 6.1 GM/DL (6.4-8.2)
[2021-06-12 17:41] LABS: TOTAL PROTEIN,RANDOM URINE 26.9 MG/DL (0.0-12.0)
== END ==
LOC: M PLALAB 13:45
PROVIDERS: ATTEND Obstetrics & Gynecology
DX: O16.3 Unspecified maternal hypertension, third trimester (principal)

== ENCOUNTER 2021-06-20 16:39 | Outpatient (CLI) | payer BC ==
[~2021-06-20] VITALS: Ht 152.4 cm; Wt 84.5 kg
[2021-06-20] VITALS (9 sets, daily range): BP systolic 119–141; BP diastolic 66–83
[~2021-06-20 16:39] MED LIST changes: -ACET325C5 PO
[2021-06-20] MEDS ORDERED: ACET325C5 PO (17:16)
== END 2021-06-20 19:22 | disposition home or self-care (01) ==
LOC: M LDO 16:39
PROVIDERS: ATTEND Specialist
DX: O16.3 Unspecified maternal hypertension, third trimester (principal); O26.893 Other specified pregnancy related conditions, third trimester; R51.9 Headache, unspecified; Z3A.35 35 weeks gestation of pregnancy
CPT/HCPCS: 59025; G0463

== ENCOUNTER → 2021-06-20 | Outpatient (CLI) | payer BC ==
[~2021-06-20] MED LIST changes: +ACET325C5 PO
[2021-06-20 18:06] LABS: HEMATOCRIT 34.9 % (36.0-47.0); HEMOGLOBIN 11.3 g/dl (12.0-15.5); MEAN CORPUSCULAR HEMOGLOBIN 30.5 pg (27.0-33.0); MEAN CORPUSCULAR HGB CONC 32.4 g/dl (32.0-36.5); MEAN CORPUSCULAR VOLUME 94.1 fl (80.0-96.0); PLATELET COUNT, AUTOMATED 256 10^3/uL (150-450); RED BLOOD COUNT 3.71 10^6/uL (4.00-5.40); WHITE BLOOD COUNT 9.9 10^3/uL (4.0-10.0)
[2021-06-20 18:17] LABS: CREATININE,RANDOM URINE 79.2 MG/DL; TOTAL PROTEIN,RANDOM URINE 23.5 MG/DL (0.0-12.0)
[2021-06-20 18:26] LABS: ALT/SGPT 13 U/L (12-78); BILIRUBIN,TOTAL 0.2 MG/DL (0.2-1.0); GLOMERULAR FILTRATION RATE > 60.0 (>60); LDH LACTATE DEHYDROGENASE 169 U/L (84-246); URIC ACID 5.3 MG/DL (2.6-6.0)
== END ==
LOC: M PLALAB 14:56
PROVIDERS: ATTEND Advanced Practice Midwife
DX: O13.9 Gestational [pregnancy-induced] hypertension without significant proteinuria, unspecified trimester (principal); Z3A.00 Weeks of gestation of pregnancy not specified

== ENCOUNTER 2021-06-24 07:44 | Inpatient (IN) | payer BC ==
[~2021-06-24] VITALS: Ht 152.4 cm; Wt 84.4 kg
[2021-06-24] VITALS (45 sets, daily range): BP systolic 114–174; BP diastolic 61–103
[~2021-06-24 07:44] MED LIST changes: +ACET325C5 PO
[2021-06-24 08:39] LABS: HEMATOCRIT 34.9 % (36.0-47.0); HEMOGLOBIN 11.3 g/dl (12.0-15.5); MEAN CORPUSCULAR HEMOGLOBIN 30.1 pg (27.0-33.0); MEAN CORPUSCULAR HGB CONC 32.4 g/dl (32.0-36.5); MEAN CORPUSCULAR VOLUME 92.8 fl (80.0-96.0); PLATELET COUNT, AUTOMATED 236 10^3/uL (150-450); RED BLOOD COUNT 3.76 10^6/uL (4.00-5.40)
[2021-06-24] MEDS ORDERED: METHYLERGONOVINE MALEATE 0.2 MG/ML VIAL (J2210) IM PRN (08:45)
[2021-06-24] MEDS ORDERED: OXYTOCIN DRIP 30 UNITS in IV 1 EA IV PRN ×4 (08:45)
[2021-06-24] MEDS ORDERED: TRANEXAMIC ACID INJection 1,000 MG in NS 100 ML IV PRN (08:45)
[2021-06-24] MEDS ORDERED: PENICILLIN G POTASSIUM IV 5 MU in D5W MINI-BAG PLUS 100 ML IV STA (08:45)
[2021-06-24] MEDS ORDERED: CARBOPROST TROMETHAMINE 250 MCG/ML AMP IM PRN (08:45)
[2021-06-24] MEDS ORDERED: OXYTOCIN DRIP 30 UNITS in IV 1 EA IV SCH (08:45)
[2021-06-24] MEDS ORDERED: OMEP10CASR PO (09:03)
[2021-06-24 09:10] LABS: ALBUMIN 2.4 GM/DL (3.2-5.2); ALT/SGPT 14 U/L (12-78); BILIRUBIN,TOTAL 0.3 MG/DL (0.2-1.0); BLOOD UREA NITROGEN 7 MG/DL (7-18); CALCIUM LEVEL 9.5 MG/DL (8.5-10.1); CARBON DIOXIDE LEVEL 21 MEQ/L (21-32); CHLORIDE LEVEL 112 MEQ/L (98-107); CREATININE FOR GFR 0.55 MG/DL (0.55-1.30); GLOMERULAR FILTRATION RATE > 60.0 (>60); GLUCOSE, FASTING 96 MG/DL (70-100); SODIUM LEVEL 142 MEQ/L (136-145)
[2021-06-24] MEDS: LR 1,000 ML IV SCH ×2 (09:39→13:37)
[2021-06-24 12:13] LABS: HIV 1&2 SCREEN CENTAUR NEGATIVE (NEGATIVE)
[2021-06-24] MEDS ORDERED: BETAMETHASONE SOLUSPAN 6MG/ML 5ML VIAL (J0702 PER 3MG) IM SCH (12:35)
[2021-06-24] MEDS ORDERED: ePHEDrine SULFATE 25 MG/5 ML(5MG/ML) SYRINGE IV PRN (13:28)
[2021-06-24] MEDS ORDERED: EPIDURAL/PCA KEYS XX PRN (13:28)
[2021-06-24] MEDS ORDERED: NALOXONE INJ 0.4MG/1ML VIAL (J2310 PER 1MG) IV PRN (13:28)
[2021-06-24] MEDS ORDERED: FENTANYL/ROPIVACAINE/NACL BAG 100 ML EPIDURAL SCH (13:28)
[2021-06-24] MEDS ORDERED: ONDANSETRON 4MG/2ML VIAL IV PRN (13:28)
[2021-06-24] MEDS ORDERED: EPIDURAL COMMENT XX SCH (13:28)
[2021-06-24] MEDS ORDERED: LACTATED RINGER'S 1000 ML IV PRN (13:28)
[2021-06-24] MEDS ORDERED: diphenhydrAMINE 50MG/ML VIAL (J1200) IV PRN (13:28)
[2021-06-24] MEDS ORDERED: REFRIGERATOR IV KEYS XX PRN (13:28)
[2021-06-24] MEDS ORDERED: FENTANYL 2MCG/ML ROPIVACAINE 0.2% IN 0.9% NACL 100ML IVBAG As Ordered ONE (13:29)
[2021-06-24] MEDS ORDERED: PENICILLIN G POTASSIUM IV 2.5 MU in IV 1 EA IV SCH (14:00)
[2021-06-24] MEDS ORDERED: DOCUSATE SODIUM 100MG CAPSULE PO PRN (18:30)
[2021-06-24] MEDS ORDERED: MEASLES,MUMPS,RUBELLA VACCINE INJ (MMR-II) (90707) SC SCH (18:30)
[2021-06-24] MEDS ORDERED: DIBUCAINE 1% OINTMENT 30GM TOP PRN (18:30)
[2021-06-24] MEDS ORDERED: METHYLERGONOVINE MALEATE 0.2 MG TAB PO PRN (18:30)
[2021-06-24] MEDS ORDERED: RHOGAM 300 MCG (1500 IU) INJ (J2790) IM SCH (18:30)
[2021-06-24] MEDS: ACETAMINOPHEN 500 MG TAB PO PRN (22:21)
[2021-06-25] MEDS: IBUPROFEN 600MG TAB PO PRN ×2 (04:06→15:36)
[2021-06-25 06:00] VITALS: BP 119/59
[2021-06-25 07:16] LABS: HEMATOCRIT 30.1 % (36.0-47.0); HEMOGLOBIN 9.9 g/dl (12.0-15.5); MEAN CORPUSCULAR HEMOGLOBIN 30.4 pg (27.0-33.0); MEAN CORPUSCULAR HGB CONC 32.9 g/dl (32.0-36.5); MEAN CORPUSCULAR VOLUME 92.3 fl (80.0-96.0); PLATELET COUNT, AUTOMATED 228 10^3/uL (150-450); RED BLOOD COUNT 3.26 10^6/uL (4.00-5.40); WHITE BLOOD COUNT 14.9 10^3/uL (4.0-10.0)
[2021-06-25 07:58] LABS: ALBUMIN 2.2 GM/DL (3.2-5.2); ALT/SGPT 12 U/L (12-78); BILIRUBIN,TOTAL 0.2 MG/DL (0.2-1.0); BLOOD UREA NITROGEN 6 MG/DL (7-18); CALCIUM LEVEL 9.3 MG/DL (8.5-10.1); CARBON DIOXIDE LEVEL 22 MEQ/L (21-32); CHLORIDE LEVEL 113 MEQ/L (98-107); CREATININE FOR GFR 0.52 MG/DL (0.55-1.30); GLOMERULAR FILTRATION RATE > 60.0 (>60); GLUCOSE, FASTING 101 MG/DL (70-100); POTASSIUM SERUM 4.2 MEQ/L (3.5-5.1); SODIUM LEVEL 143 MEQ/L (136-145); TOTAL PROTEIN 5.3 GM/DL (6.4-8.2)
[2021-06-25] MEDS: OMEPRAZOLE 20MG CAP PO SCH (09:22)
[2021-06-25] MEDS: ACETAMINOPHEN 500 MG TAB PO PRN (09:22)
[2021-06-25] MEDS: PRENATAL VITAMINS CHEWABLE TABLET PO SCH (09:22)
[2021-06-25] MEDS ORDERED: OMEP1CAP73 PO (10:14)
[2021-06-25 18:00] VITALS: BP 137/84
[2021-06-26] MEDS: IBUPROFEN 600MG TAB PO PRN (02:18)
[2021-06-26 06:00] VITALS: BP 150/84
[2021-06-26] MEDS ORDERED: BOOSTRIX/ADACEL VACCINE (DIPHTH/PERTUSS/ACELL/TETANUS) 0.5ML SYR IM ONE (09:00)
[2021-06-26] MEDS ORDERED: INFLUENZA QUADRIVALENT PF VACCINE 0.5ML SYRINGE IM ONE (09:00)
[2021-06-26] MEDS: OMEPRAZOLE 20MG CAP PO SCH (09:19)
[2021-06-26] MEDS: PRENATAL VITAMINS CHEWABLE TABLET PO SCH (09:20)
[2021-06-26] MEDS: ACETAMINOPHEN 500 MG TAB PO PRN (09:20)
[2021-06-26] MEDS ORDERED: IBUP-1022 PO (10:35)
[2021-06-26] MEDS ORDERED: ACET-683 PO (10:35)
== END 2021-06-26 13:05 | disposition home or self-care (01) | DRG 560 ==
LOC: M LDO 07:44 → M LDI 08:15 → M OBS 21:34
PROVIDERS: ADMIT Obstetrics & Gynecology; ATTEND Obstetrics & Gynecology
PROC: 10E0XZZ Delivery of Products of Conception, External Approach (ICD-10-PCS; principal; 2021-06-24)
PROC: 0HQ9XZZ Repair Perineum Skin, External Approach (ICD-10-PCS; 2021-06-24)
PROC: 3E033VJ Introduction of Other Hormone into Peripheral Vein, Percutaneous Approach (ICD-10-PCS; 2021-06-24)
DX: O42.013 Preterm premature rupture of membranes, onset of labor within 24 hours of rupture, third trimester (principal); O70.0 First degree perineal laceration during delivery; Z3A.35 35 weeks gestation of pregnancy; Z37.0 Single live birth

== ENCOUNTER → 2021-07-02 | Outpatient (CLI) | payer BC ==
[~2021-07-02] MED LIST changes: +ACET-683 PO; +IBUP-1022 PO; +OMEP10CASR PO
== END ==
LOC: M SOG 08:24
PROVIDERS: ATTEND Physician Assistant
DX: S82.62XD Displaced fracture of lateral malleolus of left fibula, subsequent encounter for closed fracture with routine healing (principal); W18.30XD Fall on same level, unspecified, subsequent encounter

== ENCOUNTER → 2021-08-28 | Outpatient (RCR) | payer BC | LOC: M PT 14:47 | PROVIDERS: ATTEND Orthopaedic Surgery Hand Surgery | DX: S82.62XD Displaced fracture of lateral malleolus of left fibula, subsequent encounter for closed fracture with routine healing (principal) ==

== ENCOUNTER 2021-09-23 12:09 | Outpatient (RCR) | payer BC | END 2021-09-28 | LOC: M PT 12:09 | PROVIDERS: ATTEND Orthopaedic Surgery Hand Surgery | DX: S82.62XD Displaced fracture of lateral malleolus of left fibula, subsequent encounter for closed fracture with routine healing (principal) ==

== ENCOUNTER 2021-10-07 16:00 | Outpatient (RCR) | payer BC | END 2021-10-29 | LOC: M PT 16:00 | PROVIDERS: ATTEND Orthopaedic Surgery Hand Surgery | DX: S82.62XD Displaced fracture of lateral malleolus of left fibula, subsequent encounter for closed fracture with routine healing (principal); W18.30XD Fall on same level, unspecified, subsequent encounter; Y92.009 Unspecified place in unspecified non-institutional (private) residence as the place of occurrence of the external cause ==

== ENCOUNTER → 2021-10-27 | Outpatient (REF) | LOC: M LABSMTC 11:06 | PROVIDERS: ATTEND Family Medicine | DX: Z11.52 Encounter for screening for COVID-19 (principal) ==

== ENCOUNTER → 2021-11-02 | Outpatient (REF) | LOC: M LABSMTC 10:04 | PROVIDERS: ATTEND Family Medicine | DX: Z00.00 Encounter for general adult medical examination without abnormal findings (principal) ==

== ENCOUNTER 2021-11-18 16:45 | Outpatient (RCR) | payer BC | END 2021-11-28 | LOC: M PT 16:45 | PROVIDERS: ATTEND Orthopaedic Surgery Hand Surgery | DX: S82.62XD Displaced fracture of lateral malleolus of left fibula, subsequent encounter for closed fracture with routine healing (principal); W18.30XD Fall on same level, unspecified, subsequent encounter; Y92.009 Unspecified place in unspecified non-institutional (private) residence as the place of occurrence of the external cause ==

== ENCOUNTER → 2022-02-08 | Outpatient (REF) ==
[2022-02-08 13:20] LABS: RSV AMPLIFICATION NEGATIVE (NEGATIVE)
== END ==
LOC: M LABSMTC 10:18
PROVIDERS: ATTEND Family Medicine
DX: Z20.828 Contact with and (suspected) exposure to other viral communicable diseases (principal)

== ENCOUNTER → 2022-03-05 | Outpatient (CLI) | payer BC | LOC: M SOG 15:25 | PROVIDERS: ATTEND Physician Assistant | DX: S82.62XD Displaced fracture of lateral malleolus of left fibula, subsequent encounter for closed fracture with routine healing (principal); W18.30XD Fall on same level, unspecified, subsequent encounter ==

== ENCOUNTER → 2022-04-18 | Outpatient (CLI) | payer BC | LOC: M RAD 09:02 | PROVIDERS: ATTEND Orthopaedic Surgery Hand Surgery | DX: S82.62XA Displaced fracture of lateral malleolus of left fibula, initial encounter for closed fracture (principal) ==

== ENCOUNTER 2022-06-22 14:13 | Outpatient (RCR) | payer BC ==
[~2022-06-22 14:13] MED LIST changes: +TOPI-254 PO; -TOPI50TA9 PO
== END 2022-06-28 ==
LOC: M PT 14:13
PROVIDERS: ATTEND Orthopaedic Surgery
DX: Z87.81 Personal history of (healed) traumatic fracture (principal)

== ENCOUNTER 2022-07-01 15:33 | Outpatient (RCR) | payer BC | END 2022-07-29 | LOC: M PT 15:33 | PROVIDERS: ATTEND Orthopaedic Surgery | DX: Z87.81 Personal history of (healed) traumatic fracture (principal) ==

== ENCOUNTER → 2022-10-28 | Outpatient (REF) | LOC: M EMP 09:43 | PROVIDERS: ATTEND Family Medicine | DX: Z11.52 Encounter for screening for COVID-19 (principal) ==

== ENCOUNTER → 2022-12-02 | Outpatient (CLI) | payer BC | LOC: M LAB 12:39 | PROVIDERS: ATTEND Obstetrics & Gynecology | DX: N91.0 Primary amenorrhea (principal) ==

== ENCOUNTER → 2023-02-12 | Outpatient (REF) ==
[~2023-02-12] MED LIST changes: +TOPI-21 PO; -TOPI-254 PO
== END ==
LOC: M EMP 10:27
PROVIDERS: ATTEND Family Medicine
DX: Z11.52 Encounter for screening for COVID-19 (principal)

== ENCOUNTER → 2023-04-12 | Outpatient (CLI) | payer BC | LOC: M SOG 09:17 | PROVIDERS: ATTEND Physician Assistant | DX: S82.454A Nondisplaced comminuted fracture of shaft of right fibula, initial encounter for closed fracture (principal); Y93.9 Activity, unspecified; Y92.9 Unspecified place or not applicable ==

== ENCOUNTER → 2023-04-14 | Outpatient (CLI) | payer BC | LOC: M SOG 15:00 | PROVIDERS: ATTEND Orthopaedic Surgery | DX: S82.64XA Nondisplaced fracture of lateral malleolus of right fibula, initial encounter for closed fracture (principal); W18.30XA Fall on same level, unspecified, initial encounter; Y92.009 Unspecified place in unspecified non-institutional (private) residence as the place of occurrence of the external cause ==

== ENCOUNTER → 2023-04-21 | Outpatient (CLI) | payer BC | LOC: M SOG 07:54 | PROVIDERS: ATTEND Orthopaedic Surgery | DX: S82.64XA Nondisplaced fracture of lateral malleolus of right fibula, initial encounter for closed fracture (principal); W18.30XA Fall on same level, unspecified, initial encounter; Y92.009 Unspecified place in unspecified non-institutional (private) residence as the place of occurrence of the external cause ==

== ENCOUNTER → 2023-04-26 | Outpatient (CLI) | payer BC | LOC: M SOG 09:34 | PROVIDERS: ATTEND Orthopaedic Surgery | DX: S82.64XD Nondisplaced fracture of lateral malleolus of right fibula, subsequent encounter for closed fracture with routine healing (principal) ==

== ENCOUNTER 2023-05-25 14:51 | Outpatient (RCR) | payer BC | END 2023-05-30 | LOC: M PT 14:51 | PROVIDERS: ATTEND Orthopaedic Surgery | DX: S82.891A Other fracture of right lower leg, initial encounter for closed fracture (principal) ==

== ENCOUNTER → 2023-08-31 | Outpatient (CLI) | payer BC | LOC: M LAB 16:23 | PROVIDERS: ATTEND Student in an Organized Health Care Education/Training Program | DX: N91.2 Amenorrhea, unspecified (principal) ==

== ENCOUNTER → 2023-09-03 | Outpatient (CLI) | payer BC ==
[2023-09-03 17:25] LABS: HCG, SERUM QUALITATIVE POSITIVE (NEGATIVE)
[2023-09-04 13:27] LABS: HCG, SERUM QUANTITATIVE 224.5 MIU/ML (<4.2)
== END ==
LOC: M LAB 16:18
PROVIDERS: ATTEND Nurse Practitioner Family
DX: O20.0 Threatened abortion (principal)

== ENCOUNTER → 2023-12-22 | Outpatient (REF) | payer BC, MEDICAID ==
[~2023-12-22] MED LIST changes: +HYDR-3713 PO; +LAXA15TA PO; +SENN-188 PO; +UBRO100T PO
== END ==
LOC: M LAB REF 16:41
PROVIDERS: ATTEND Nurse Practitioner Adult Health
DX: R10.13 Epigastric pain (principal)

== ENCOUNTER 2023-12-24 07:51 | Emergency (ER) | payer BC, MEDICAID ==
[~2023-12-24] VITALS: Ht 152.4 cm; Wt 82.9 kg
[~2023-12-24 07:51] MED LIST changes: -HYDR-3713 PO; -LAXA15TA PO; -SENN-188 PO; -UBRO100T PO
[2023-12-24] MEDS ORDERED: HYDR-3713 PO (08:04)
[2023-12-24] MEDS ORDERED: LAXA15TA PO (08:04)
[2023-12-24 08:42] LABS: BASO % 0.4 % (0.0-1.0); EOS # 0.2 10^3/uL (0.0-0.5); EOS % 2.1 % (0.0-3.0); HEMATOCRIT 41.9 % (36.0-47.0); LYMPH # 2.2 10^3/uL (1.5-5.0); LYMPH % 30.5 % (24.0-44.0); MEAN CORPUSCULAR HEMOGLOBIN 30.7 pg (27.0-33.0); MEAN CORPUSCULAR HGB CONC 33.4 g/dl (32.0-36.5); MEAN CORPUSCULAR VOLUME 91.9 fl (80.0-96.0); MONO # 0.5 10^3/uL (0.0-0.8); MONO % 7.1 % (2.0-8.0); NEUTROPHILS # 4.2 10^3/uL (1.5-8.5); NEUTROPHILS % 59.6 % (36.0-66.0); PLATELET COUNT, AUTOMATED 275 10^3/uL (150-450); RED BLOOD COUNT 4.56 10^6/uL (4.00-5.40); WHITE BLOOD COUNT 7.1 10^3/uL (4.0-10.0)
[2023-12-24] MEDS: KETOROLAC 30 MG/ML 1ML VIAL IV ONE (08:44)
[2023-12-24 08:54] LABS: LIPASE 35 U/L (12-53)
[2023-12-24 08:56] LABS: ALBUMIN 3.6 G/DL (3.2-5.2); ALKALINE PHOSPHATASE 122 U/L (35-104); ALT/SGPT 24 U/L (7.0-40); AST/SGOT 14 U/L (<34); BILIRUBIN,DIRECT 0.2 MG/DL (<0.4); BILIRUBIN,TOTAL 0.5 MG/DL (0.3-1.2); TOTAL PROTEIN 7.1 G/DL (5.7-8.2)
[2023-12-24 08:58] LABS: HCG, SERUM QUALITATIVE NEGATIVE (NEGATIVE)
[2023-12-24] MEDS ORDERED: ISOVUE-370 76% 100ML VIAL As Ordered ONE (09:48)
[2023-12-24] MEDS: ONDANSETRON 4MG 2ML VIAL IV ONE (10:29)
[2023-12-24] MEDS: ACETAMINOPHEN *IV* 1,000 MG in IV 1 EA IV ONE (10:57)
[2023-12-24] MEDS ORDERED: SENN-188 PO (11:10)
[2023-12-24] MEDS ORDERED: IBUP-1022 PO (11:10)
[2023-12-24] MEDS ORDERED: UBRO100T PO (11:10)
[2023-12-24] MEDS ORDERED: HOME MED LIST COMPLETE! XX SCH (11:10)
[2023-12-24 11:14] LABS: APPEARANCE, URINE HAZY (CLEAR); BACTERIA, URINE AUTO 1+ (NEGATIVE); BILIRUBIN, URINE AUTO NEGATIVE (NEGATIVE); BLOOD, URINE BLOOD 1+ (NEGATIVE); COLOR, URINE YELLOW (YELLOW); GLUCOSE, URINE (UA) AUTO NEGATIVE (NEGATIVE); KETONE, URINE AUTO NEGATIVE (NEGATIVE); LEUKOCYTE ESTERASE, URINE AUTO NEGATIVE (NEGATIVE); NITRITE, URINE AUTO NEGATIVE (NEGATIVE); PROTEIN, URINE AUTO NEGATIVE (NEGATIVE); RBC, URINE AUTO 1 /HPF (0-3); SPECIFIC GRAVITY URINE AUTO 1.006 (1.002-1.035); SQUAMOUS EPITHELIAL CELL UR AU 7 /HPF (0-6); UROBILINOGEN, URINE AUTO 0.2 mg/dL (0.0-2.0); WBC, URINE AUTO 0 /HPF (0-3)
[2023-12-24] MEDS: fentaNYL 100 MCG/2 ML INJECTION IV ONE (11:58)
[2023-12-24 13:46] VITALS: BP 106/70; TEMP 98.2; O2SAT 98
== END 2023-12-24 13:49 | disposition home or self-care (01) ==
LOC: M ED 07:51
DX: R10.11 Right upper quadrant pain (principal); F10.10 Alcohol abuse, uncomplicated; Z88.2 Allergy status to sulfonamides; Z88.8 Allergy status to other drugs, medicaments and biological substances; Z79.1 Long term (current) use of non-steroidal anti-inflammatories (NSAID)
CPT/HCPCS: 74177; 80047; 80076; 81001; 83605; 83690; 84703; 85025; 96365; 96374; 96375; 99284; J0131; J1885; J2405; J3010; Q9967

== ENCOUNTER → 2023-12-25 | Outpatient (REF) | payer BC ==
[~2023-12-25] MED LIST changes: +HYDR-3713 PO; +LAXA15TA PO; +SENN-188 PO; +UBRO100T PO
== END ==
LOC: M LAB REF 13:29
PROVIDERS: ATTEND Nurse Practitioner Adult Health
DX: R10.13 Epigastric pain (principal)

== ENCOUNTER → 2024-06-15 | Outpatient (CLI) | payer BC ==
[~2024-06-15] MED LIST changes: +CARI-555; -CARI1TAB7
== END ==
LOC: M RAD 08:29
DX: D18.03 Hemangioma of intra-abdominal structures (principal)

== ENCOUNTER → 2024-12-21 | Outpatient (CLI) | payer BC ==
[~2024-12-21] MED LIST changes: -IBUP-1022; -IBUP-1022 PO; +IBUP600T42; +IBUP600T42 PO; +TOPI-257; -TOPI100T9
== END ==
LOC: M WUC 09:57
PROVIDERS: ATTEND Student in an Organized Health Care Education/Training Program
DX: N91.2 Amenorrhea, unspecified (principal)

== ENCOUNTER 2025-02-05 10:52 | Emergency (ER) | payer BC ==
[~2025-02-05] VITALS: Ht 152.4 cm; Wt 79.7 kg
[2025-02-05] MEDS ORDERED: OMEP-173 (11:05)
[2025-02-05] MEDS ORDERED: VENL37.598 (11:05)
[2025-02-05] MEDS ORDERED: PROM12.56 (11:05)
[2025-02-05 11:35] LABS: BASO # 0.0 10^3/uL (0.0-0.2); BASO % 0.3 % (0.0-1.0); EOS # 0.1 10^3/uL (0.0-0.5); EOS % 0.7 % (0.0-3.0); LYMPH # 2.2 10^3/uL (1.5-5.0); LYMPH % 20.5 % (24.0-44.0); MONO # 0.5 10^3/uL (0.0-0.8); MONO % 4.7 % (2.0-8.0); NEUTROPHILS # 7.9 10^3/uL (1.5-8.5); NEUTROPHILS % 73.3 % (36.0-66.0); PLATELET COUNT, AUTOMATED 293 10^3/uL (150-450)
[2025-02-05 12:05] LABS: ALT/SGPT 12 U/L (7.0-40); AST/SGOT 15 U/L (<34); CALCIUM LEVEL 9.4 MG/DL (8.5-10.1); CARBON DIOXIDE LEVEL 26 MMOL/L (20-31); CHLORIDE LEVEL 101 MMOL/L (98-107); CREATININE FOR GFR 0.59 MG/DL (0.55-1.30); GLOMERULAR FILTRATION RATE > 90.0 (>60); POTASSIUM SERUM 4.0 MMOL/L (3.5-5.1); SODIUM LEVEL 136 MMOL/L (136-145)
[2025-02-05 12:07] LABS: HCG, SERUM QUALITATIVE POSITIVE (NEGATIVE)
[2025-02-05] MEDS: NS (Normal Saline) 0.9% 1,000 ML IV ONE (12:55)
[2025-02-05] MEDS: ACETAMINOPHEN *IV* 1,000 MG in IV 1 EA IV ONE (13:00)
[2025-02-05 14:16] LABS: KETONE, URINE AUTO RFX 1+ mg/dL (NEGATIVE); LEUKOCYTE ESTERASE UR AUTO RFX NEGATIVE (NEGATIVE); MUCUS, URINE RFX SMALL (NEGATIVE); NITRITE, URINE AUTO RFX NEGATIVE (NEGATIVE); RBC, URINE AUTO RFX 3 /HPF (0-3); SQUAM EPITHELIAL CELL UR AURFX 14 /HPF (0-6); WBC, URINE AUTO RFX 0 /HPF (0-3)
[2025-02-05 15:11] LABS: MAGNESIUM LEVEL 1.9 MG/DL (1.8-2.4)
[2025-02-05] MEDS: MAG SULF 1GM/100ML (MAG RUN) 1 GM in IV 1 EA IV ONE (16:06)
[2025-02-05] MEDS ORDERED: ONDA-282 PO (17:45)
[2025-02-05] MEDS ORDERED: ONDANSETRON 4MG ORAL DISINTEGRATING TAB PO ONE (17:50)
[2025-02-05] MEDS: ACETAMINOPHEN 325 MG TAB PO ONE (17:59)
[2025-02-05 18:01] VITALS: BP 118/75; TEMP 98.1; O2SAT 100
[2025-02-05] MEDS: ONDANSETRON 4MG ORAL DISINTEGRATING TAB PO ONE (18:04)
== END 2025-02-05 18:06 | disposition home or self-care (01) ==
LOC: M ED 10:52
DX: O21.9 Vomiting of pregnancy, unspecified (principal); Z3A.10 10 weeks gestation of pregnancy; O99.611 Diseases of the digestive system complicating pregnancy, first trimester; R51.9 Headache, unspecified; K21.9 Gastro-esophageal reflux disease without esophagitis; Z88.2 Allergy status to sulfonamides; Z88.5 Allergy status to narcotic agent; Z79.899 Other long term (current) drug therapy
CPT/HCPCS: 76801; 80048; 80076; 81001; 83690; 83735; 84703; 85025; 96365; 96366; 96375; 99284; J0134; J2765; J3475